=== PATIENT | female | born 1945 | race Caucasian/White ===

== ENCOUNTER 2017-04-27 16:29 | Emergency (ER) | payer MEDICARE, MEDICAID ==
[2017-04-27] MEDS ORDERED: Ketorolac Tromethamine 30 MG/ML VIAL ONE (17:44)
== END 2017-04-27 17:51 | disposition home or self-care (01) ==
LOC: ERS 16:29
DX: M54.5 Low back pain (principal); G89.29 Other chronic pain; I10 Essential (primary) hypertension; F32.9 Major depressive disorder, single episode, unspecified; F41.9 Anxiety disorder, unspecified; Z87.891 Personal history of nicotine dependence
CPT/HCPCS: 96372; J1885

== ENCOUNTER 2017-05-13 15:23 | Observation (INO) | payer MEDICARE, MEDICAID ==
[2017-05-13 15:42] LABS: #Eosinphils 0.2 thou/uL (0.0-0.7); #Lymphocytes 1.8 thou/uL (1.20-3.40); #Monocytes 0.6 thou/uL (0.11-0.59); #Neutrophils 5.2 thou/uL (1.40-6.50); %Basophils 0.3 % (0.0-1.0); %Eosinophils 2.2 % (0.0-10.0); %Lymphocytes 23.3 % (21.0-51.0); %Monocytes 8.1 % (0.0-10.0); Hematocrit 36.1 % (36.0-47.0); Mean Platelet Volume 7.9 fL (7.4-10.4); Red Blood Cell (RBC) Count 3.76 mill/uL (4.20-5.40); White Blood Cell (WBC) Count 7.9 thou/uL (4.8-10.8)
--- NOTE | 2017-05-13 15:57 | RAD ---
FRONTAL VIEW CHEST: Comparison: 03-14-16 Clinical history: Chest pain. FINDINGS: Lungs are clear. No effusion or pneumothorax. No free air beneath the hemidiaphragms. Cardiac silhou ette is within normal size for portable technique. IMPRESSION: No focal consolidation. POS: [facility]
[2017-05-13] MEDS ORDERED: ISOVUE-370 76%-LOCM 1 ML ONE (16:02)
[2017-05-13 16:05] LABS: ALT (SGPT) 11 U/L (8-55); AST (SGOT) 13 U/L (5-34); Alkaline Phosphatase 68 U/L (40-150); Anion Gap 17 mmol/L (10-20); BUN (Urea Nitrogen) 25 mg/dL (9.8-20.1); Bilirubin, Total 0.3 mg/dL (0.2-1.2); Calc. Creatinine Clearance 0 mL/min (70-130); Calcium 8.7 mg/dL (7.8-10.44); Carbon Dioxide 24 mmol/L (23-31); Chloride 103 mmol/L (98-107); Estimated GFR-MDRD 67; Globulin 2.9 g/dL (2.4-3.5); Protein, Total 6.7 g/dL (6.0-8.3)
[2017-05-13] MEDS ORDERED: Nitroglycerin 2% Ointment 1 INCH/1 GM Packet ONE (16:10)
[2017-05-13 16:14] LABS: Troponin I 0.013 ng/mL (< 0.028)
--- NOTE | 2017-05-13 16:45 | CT ---
CTA CHEST WITH 3D VOLUME RENDERING 05/13/17 CLINICAL HISTORY: Chest pain. Elevated D-dimer. No prior imaging comparison. FINDINGS: There is a mild generalized heterogeneity of the contrast bolus occupying the pulmonary arterial sys tem without definitive evidence for a large, central filling defect. Subtle linear areas of low atte nuation are favored to reflect flow related artifact. Portions of the segmental branches of each pul monary arterial system opacify with contrast without evidence of notable filling defect. Peripheral to the segmental distribution, there is incomplete assessment due to heterogeneity of contrast at th e distal small branches. No lobar consolidation. There is a generalized mosaic attenuation of the pulmonary parenchyma which is nonspecific. Ground glass focal opacity of the anterior right upper lobe may represent an area of focal volume loss or scar. There is patchy subpleural opacification at the posterior left lung base favoring atelectasis. Otherwise, no consolidation, effusion or pneumothorax evident. There is left apical pleural thickening/irregularity. Scattered atherosclerotic vascular disease of the thoracic a wayne is nonaneurysmal. There is heterogeneity of the partially imaged thyroid gland, incompletely as sessed. IMPRESSION: 1. No large, central pulmonary embolus identified. 2. Heterogeneity of the imaged thyroid gland, incompletely visualized on the basis of this exam . Consider followup, nonemergent thyroid ultrasound to further characterize. 3. Additional details are described above. POS: [facility]
[2017-05-13 19:16] VITALS: BMI 26.7
[2017-05-13 19:38] LABS: Troponin I Less than 0.010 ng/mL (< 0.028)
[2017-05-13] MEDS ORDERED: cloNIDine 0.1 MG TAB PO PRN (20:02)
[2017-05-13] MEDS ORDERED: HumaLOG 300 UNITS/3 ML VIAL SC PRN ×2 (20:02)
[2017-05-13] MEDS ORDERED: Ondansetron ODT 4 MG TAB PO PRN (20:02)
[2017-05-13] MEDS ORDERED: Senokot 8.6 MG TAB PO PRN (20:02)
[2017-05-13] MEDS ORDERED: Acetaminophen 500 MG TAB PO PRN (20:02)
[2017-05-13] MEDS ORDERED: hydrALAZINE 20 MG/ML VIAL SLOW IVP PRN (20:02)
[2017-05-13] MEDS ORDERED: Dextrose 50% Abboject 50 ML SYRINGE SLOW IVP PRN (20:02)
[2017-05-13] MEDS ORDERED: Dextrose 5% in Water 1,000 ML IV PRN (20:02)
[2017-05-13] MEDS ORDERED: Ondansetron HCl/PF 4 MG/2 ML Vial IVP PRN (20:02)
[2017-05-13] MEDS ORDERED: Nitroglycerin 0.4 MG TAB (25 Tab Bottle) PO PRN (20:02)
[2017-05-13] MEDS ORDERED: Insulin Detemir 100 UNITS/ML 30 UNITS in Pre-Filled Syringe 1 EACH SC SCH (21:00)
[2017-05-13] MEDS ORDERED: Atorvastatin Calcium 20 MG TAB PO SCH (21:00)
[2017-05-13] MEDS ORDERED: Non-Formulary Item 1 EACH (Levemir Flexpen [Levemir Flexpen] 30 UNITS) SQ SCH (21:00)
[2017-05-13] MEDS: Gabapentin 300 MG CAP PO SCH (21:23)
[2017-05-13] MEDS: Docusate 100 MG CAP PO SCH (21:23)
[2017-05-13] MEDS: Famotidine 20 MG TAB PO SCH (21:23)
[2017-05-13 21:45] LABS: Troponin I Less than 0.010 ng/mL (< 0.028)
--- NOTE | 2017-05-14 01:45 | HP ---
DATE OF ADMISSION: 05/13/2017 PRIMARY CARE PROVIDER: Dr. Tarah Beckwith. CHIEF COMPLAINT: Chest pain. HISTORY OF PRESENT ILLNESS: This is a 71-year-old female who presents to [facility] from [place], complaining of central chest pressure and pain. The patient state s she was sitting on her porch on a chair when she noticed the pain in the central portion of her ch est. The patient presented to the emergency room approximately 2 hours after onset of symptoms. Th e patient reported that her symptoms were constant, sharp, without associated nausea or vomiting. T he patient did state she had some shortness of breath with no diaphoresis, left arm or jaw discomfor t. The patient states she has a history of coronary artery disease status post cardiac stent placem ent x4. The patient states she has been compliant with her chronic medication regimens, but does no te that she has some mild cold symptoms with increased cough and congestion. The patient denied any specific fever, travel history, lower extremity swelling or unilateral weakness. In the emergency room, the patient underwent general evaluation and treated with topical nitroglycerin and aspirin 32 5 mg. The patient was referred to the observation unit for evaluation. PAST MEDICAL HISTORY: 1. Coronary artery disease status post cardiac stent placement x4. 2. Hypertension. 3. Diabetes mellitus, type 2, insulin requiring. 4. Peripheral neuropathy. 5. Mild dementia. PAST SURGICAL HISTORY: 1. Status post appendectomy. 2. Status post cardiac stent placement x4. 3. Status post hysterectomy. CURRENT MEDICATIONS: 1. Invokana 100 mg 1 tab p.o. daily. 2. Citalopram 20 mg 1 tab p.o. daily. 3. Plavix 75 mg 1 tab p.o. daily. 4. Gabapentin 300 mg p.o. t.i.d. 5. Levemir 25 units subcutaneously q.a.m. and 30 units subcutaneously at bedtime. 6. Lisinopril 20 mg 1 tab p.o. daily. 7. Memantine 5 mg p.o. b.i.d. 8. Simvastatin 40 mg p.o. at bedtime. 9. Glipizide 10 mg p.o. daily. 10. Metformin ER 1000 mg p.o. q.a.m. ALLERGIES: No known drug allergies. FAMILY HISTORY: Positive for diabetes mellitus. SOCIAL HISTORY: The patient resides at [facility]. No current alcohol, tobacco or i llicit drug use. Ambulates with the use of a rolling walker. Quit tobacco use in 2010. REVIEW OF SYSTEMS: The following complete review of systems was negative, unless otherwise mentione d in the HPI or below: Constitutional: Weight loss or gain, ability to conduct usual activities. Skin: Rash, itching. Eyes: Double vision, pain. ENT/Mouth: Nose bleeding, neck stiffness, pain, tenderness. Cardiovascular: Palpitations, dyspnea on exertion, orthopnea. Respiratory: Shortness of breath, wheezing, cough, hemoptysis, fever or night sweats. Gastrointestinal: Poor appetite, abdominal pain, heartburn, nausea, vomiting, constipation, or diar cristine. Genitourinary: Urgency, frequency, dysuria, nocturia. Musculoskeletal: Pain, swelling. Neurologic/Psychiatric: Anxiety, depression. ALLERGY/Immunologic: Skin rash, bleeding tendency. PHYSICAL EXAMINATION: VITAL SIGNS: On admission, blood pressure 169/86, pulse 73, respiratory rate 20, temperature 98.8 d egrees Fahrenheit, O2 saturation 96% on room air. GENERAL APPEARANCE: This is a 71-year-old female, alert and oriented x2, pleasant, conver lamberto, in no acute distress. HEENT: Pupils are equal, round, and reactive to light and accommodation. Extraocular muscles are i ntact. No scleral icterus, no conjunctival injection. Nares patent. OP is clear. Teeth in fair r epair. NECK: Supple, no cervical adenopathy, no thyromegaly, no carotid bruits, no JVD appreciated. Cervi jerman spine with full active and passive range of motion. No meningeal signs appreciated. CHEST: Lungs are clear to auscultation bilaterally. CARDIOVASCULAR: S1, S2, without noted murmur. ABDOMEN: Rounded, soft, nontender, nondistended. Bowel sounds are positive in all four quadrants. There is no hepatosplenomegaly, no abdominal bruits, no rebound or guarding appreciated. EXTREMITIES: Warm and dry with fair turgor. No clubbing, cyanosis or asymmetric edema appreciated. Pulses palpable distally at the dorsalis pedis, posterior tibial, and popliteal arteries bilateral ly. Capillary refill less than 2 seconds. NEUROLOGIC: Cranial nerves II-XII are grossly intact. No focal or lateralizing signs appreciated. PERTINENT LABORATORY AND X-RAY FINDINGS: Basic metabolic profile within normal limits. Glucose 212 , LFTs within normal limits. Troponin I negative x2. Albumin 3.8. CBC within normal limits. Port able chest x-ray dated 05/13/2017 showed no acute cardiopulmonary process. CT angiogram of the ches t dated on 05/13/2017 showed no evidence for pulmonary embolus. Heterogeneity of the thyroid gland. EKG dated on 05/13/2017 by my interpretation shows sinus mechanism with heart rates in the 70s. A ttenuated R waves noted in the precordial leads. Normal axis. Incomplete right bundle branch block pattern noted. No acute ST-T wave changes appreciated. ASSESSMENT AND PLAN: 1. Chest pain. The patient will be observed on the telemetry unit. We will proceed with Cardiolit e stress testing in the a.m. Continue aspirin 325 mg p.o. daily. Check fasting lipid profile in th e a.m. 2. Hypertension. Resume home antihypertensive regimen and monitor clinical response. 3. Diabetes mellitus, type 2, insulin requiring. Continue home insulin regimen when taking consist ent p.o. intake. ADA diet. Accu-Cheks a.c. and at bedtime. 4. Hyperlipidemia. Check fasting lipid profile in the a.m. Continue Simvastatin 40 mg p.o. at bed time. 5. Coronary artery disease. Chronic and stable. See #1 above. 6. Prophylaxis. Sequential compression devices while in bed. Pepcid 20 mg p.o. b.i.d. 7. Code status is FULL. Surrogate medical decision maker is the patient's daughter.
[2017-05-14 04:51] LABS: Anion Gap 9 mmol/L (10-20); BUN (Urea Nitrogen) 21 mg/dL (9.8-20.1); Calc. Creatinine Clearance 68 mL/min (70-130); Calcium 8.5 mg/dL (7.8-10.44); Carbon Dioxide 26 mmol/L (23-31); Chloride 107 mmol/L (98-107); Cholesterol 170 mg/dl (< 200 Desired); Estimated GFR-MDRD 66; LDL Cholesterol, Calculated 63 mg/dL
[2017-05-14 05:20] LABS: Band 2 % (5-11); Hematocrit 34.6 % (36.0-47.0); Mean Platelet Volume 8.1 fL (7.4-10.4); Neutrophil 48 % (42-75); Red Blood Cell (RBC) Count 3.58 mill/uL (4.20-5.40); White Blood Cell (WBC) Count 6.3 thou/uL (4.8-10.8)
[2017-05-14] MEDS ORDERED: FLU VACC TS2017-18 (>65YR) 0.5 ML SYRINGE IM ONE (09:00)
[2017-05-14] MEDS ORDERED: Clopidogrel Bisulfate 75 MG TAB PO SCH (09:00)
[2017-05-14] MEDS ORDERED: Aspirin 325 MG TAB PO SCH (09:00)
[2017-05-14] MEDS ORDERED: Citalopram 20 MG TAB PO SCH (09:00)
[2017-05-14] MEDS ORDERED: Lisinopril 20 MG TAB PO SCH (09:00)
[2017-05-14] MEDS ORDERED: Insulin Detemir 100 UNITS/ML 25 UNITS in Pre-Filled Syringe 1 EACH SC SCH (09:00)
[2017-05-14] MEDS ORDERED: Non-Formulary Item 1 EACH (Canagliflozin [Invokana] 100 MG) PO SCH (09:00)
[2017-05-14] MEDS ORDERED: ADENOSINE 60 MG/20 ML VIAL ONE (12:00)
[2017-05-14 12:51] VITALS: BP 158/71; TEMP 97.6
[2017-05-14] MEDS: Gabapentin 300 MG CAP PO SCH ×2 (13:23→13:25)
[2017-05-14] MEDS: Docusate 100 MG CAP PO SCH (13:24)
[2017-05-14] MEDS: Famotidine 20 MG TAB PO SCH (13:25)
--- NOTE | 2017-05-14 15:52 | DIS ---
PRIMARY CARE PHYSICIAN: Tarah Beckwith M.D. DATE OF ADMISSION: 05/13/2017 DATE OF DISCHARGE: 05/14/2017 DISCHARGE DIAGNOSES: 1. Noncardiac chest pain. 2. History of coronary artery disease without angina. 3. Diabetes mellitus type 2 without complications. 4. Hyperlipidemia. 5. Essential hypertension. 6. Mild dementia. 7. Peripheral neuropathy. CONSULTATIONS: None. PROCEDURES: Nuclear thallium stress test, which showed no areas of reversible ischemia. HISTORY AND PHYSICAL: Ms. Reynaga is a 71-year-old female who presented to the emergency [facility] t last night 05/13/2017, complaining of chest pressure. She is a resident of [place] and was havi ng central chest pressure occurred while she was sitting on her porch. She came to the emergency ro om for evaluation from apartment approximately 2 hours after symptoms started. She describes a cons tant, sharp pain, did not have any associated nausea or vomiting, but did have some shortness of luís ath without diaphoresis. No left arm or jaw discomfort. It was increased by deep breathing. This does not feel like her previous episode. She was given nitroglycerin and aspirin, and we were huang d for observation. HOSPITAL COURSE: The patient was seen and examined by Dr. Max and placed in observation with telem etry. Overnight, she remained pain free. She had serial cardiac biomarkers that were negative and this morning, underwent a nuclear thallium stress test, which was negative for inducible ischemia. Her symptoms resolved. Her vital signs were stable and she was discharged with outpatient followup. DISCHARGE PHYSICAL EXAMINATION: The patient was seen and examined on the day of discharge. Dischar ge plan and disposition were discussed with the patient face to face at the bedside. DISCHARGE MEDICATIONS: 1. Aspirin 81 mg daily, which is a new medication prescription sent. 2. Invokana 100 mg daily. 3. Celexa 20 mg daily. 4. Plavix 75 mg daily. 5. Gabapentin 300 mg p.o. t.i.d. 6. Levemir 25 units subQ q.a.m. and 30 units subQ q.p.m. 7. Lisinopril 20 mg daily. 8. Memantine 5 mg p.o. b.i.d. 9. Zocor 40 mg p.o. at bedtime. 10. Glipizide 10 mg daily. 11. Metformin 1000 mg p.o. q.a.m. FOLLOWUP APPOINTMENTS: Primary care physician within a week. DISCHARGE CONDITION: Stable. DISPOSITION: The patient will be discharged home via private vehicle. DISCHARGE DIET: Heart healthy, diabetic diet. DISCHARGE ACTIVITY: As tolerated. Instructions to return to the emergency department for worsening chest pain and to keep her follow u p with her primary care physician.
--- NOTE | 2017-05-14 15:52 | NM ---
NUCLEAR MEDICINE CARDIAC STRESS TEST WITH EJECTION FRACTION 05/14/17 HISTORY: Coronary artery disease, stents, cardiac cath, hypertension, diabetes, chest pain. COMPARISON: Nuclear medicine cardiac stress test 03/15/16. TECHNIQUE: The exam is performed using nuclear Adenosine stress. There is no abnormal EKG response with no abno rmal changes. Stress and rest was performed after the intravenous administration of 32 and 9 millicuries technetiu m 99m Sestamibi intravenously. FINDINGS: No areas of scar or ischemia. Normal wall motion. No area of dyskinesia. Ejection fraction is 68%. IMPRESSION: Normal cardiac stress test with ejection fraction. POS: [facility]
--- NOTE | 2017-05-23 12:54 | EKG ---
Test Reason : CP Blood Pressure : / mmHG Vent. Rate : 075 BPM Atrial Rate : 075 BPM P-R Int : 172 ms QRS Dur : 110 ms QT Int : 412 ms P-R-T Axes : 029 066 036 degrees QTc Int : 460 ms Normal sinus rhythm Incomplete right bundle branch block Borderline ECG Confirmed by WANDA ASUNDERS MD ([id number]), film editor supervisor DAVID MATHEWS ([id number]) on 05/23/2017 12:54:34 PM Referred By: Confirmed By:WANDA SAUNDERS MD
== END 2017-05-14 15:10 | disposition home or self-care (01) ==
LOC: ERS 15:23 → 2SW 17:00
PROVIDERS: ADMIT Family Medicine; ATTEND Family Medicine
DX: R07.89 Other chest pain (principal); I25.10 Atherosclerotic heart disease of native coronary artery without angina pectoris; E78.5 Hyperlipidemia, unspecified; I10 Essential (primary) hypertension; F03.90 Unspecified dementia, unspecified severity, without behavioral disturbance, psychotic disturbance, mood disturbance, and anxiety; E11.42 Type 2 diabetes mellitus with diabetic polyneuropathy; Z79.2 Long term (current) use of antibiotics; Z79.02 Long term (current) use of antithrombotics/antiplatelets; Z79.4 Long term (current) use of insulin; Z79.899 Other long term (current) drug therapy; Z95.818 Presence of other cardiac implants and grafts; Z90.49 Acquired absence of other specified parts of digestive tract; Z90.710 Acquired absence of both cervix and uterus; Z87.891 Personal history of nicotine dependence
CPT/HCPCS: 71010; 71275; 78452; 80048; 80053; 80061; 82553; 82962 ×2; 84484 ×2; 85007; 85025; 85027; 85379; 90732; 93005; 93017; 94760 ×2; 99285; A9500; G0008; G0009; G0378; Q2036; 36415; 36416; 90471; 90682; A4216; J0153; J1815

== ENCOUNTER 2017-05-21 18:28 | Emergency (ER) | payer MEDICARE, MEDICAID ==
[2017-05-21 21:18] LABS: Bilirubin Negative (Negative); Blood, Urine Negative (Negative); Glucose, Urine (Dipstick) >=1000 mg/dL (Negative); Ketone, Urine Negative (Negative); Nitrite Negative (Negative); Protein, Urine (Dipstick) Negative (Neg-Trace); Urobilinogen 0.2 mg/dL (0.2-1.0)
[2017-05-21 21:21] LABS: Bacteria/HPF Rare-Few HPF (None Seen); Hyaline Casts/LPF 0-3 HYALINE CAST LPF (0-3 Hyaline); RBC/HPF 0-3 HPF (0-3); Squamous Epithelial 0-3 HPF (0-3)
[2017-05-21] MEDS ORDERED: Acetaminophen 500 MG TAB ONE (22:18)
== END 2017-05-21 22:29 | disposition home or self-care (01) ==
LOC: ERS 18:28
DX: N39.0 Urinary tract infection, site not specified (principal); E11.9 Type 2 diabetes mellitus without complications; F41.9 Anxiety disorder, unspecified; F32.9 Major depressive disorder, single episode, unspecified; Z79.4 Long term (current) use of insulin
CPT/HCPCS: 81003; 81015; 87086; 99283

== ENCOUNTER 2017-05-31 15:40 | Emergency (ER) | payer MEDICARE, MEDICAID ==
[2017-05-31 16:45] LABS: Bilirubin Negative (Negative); Blood, Urine Negative (Negative); Glucose, Urine (Dipstick) >=1000 mg/dL (Negative); Ketone, Urine Negative (Negative); Nitrite Negative (Negative); Protein, Urine (Dipstick) Negative (Neg-Trace); Urobilinogen 0.2 mg/dL (0.2-1.0)
== END 2017-05-31 18:58 | disposition home or self-care (01) ==
LOC: ERS 15:40
DX: M54.5 Low back pain (principal); E11.40 Type 2 diabetes mellitus with diabetic neuropathy, unspecified; F41.9 Anxiety disorder, unspecified; F32.9 Major depressive disorder, single episode, unspecified; Z87.891 Personal history of nicotine dependence; Z79.899 Other long term (current) drug therapy; Z79.4 Long term (current) use of insulin
CPT/HCPCS: 36416; 81003; 87086; 99283

== ENCOUNTER 2017-08-11 12:31 | Emergency (ER) | payer MEDICARE, OTHER ==
[2017-08-11] MEDS ORDERED: Insulin Regular 300 UNITS/3 ML VIAL ONE (13:01)
[2017-08-11 13:30] LABS: #Eosinphils 0.1 thou/uL (0.0-0.7); #Lymphocytes 1.4 thou/uL (1.20-3.40); #Monocytes 0.2 thou/uL (0.11-0.59); #Neutrophils 4.9 thou/uL (1.40-6.50); %Basophils 0.2 % (0.0-1.0); %Eosinophils 1.7 % (0.0-10.0); %Lymphocytes 20.9 % (21.0-51.0); %Monocytes 2.7 % (0.0-10.0); %Neutrophils 74.5 % (42.0-75.0); Hemoglobin 11.9 g/dL (12.0-16.0); Mean Corpuscular HGB CONC 33.6 g/dL (32.0-36.0); Mean Corpuscular Hemoglobin 32.2 pg (27.0-31.0); Mean Corpuscular Volume 95.9 fl (81.0-99.0); Mean Platelet Volume 8.1 fL (7.4-10.4); Platelet Count 204 thou/uL (130-400); RBC Distribution Width 12.6 % (11.5-14.5); Red Blood Cell (RBC) Count 3.69 mill/uL (4.20-5.40); White Blood Cell (WBC) Count 6.6 thou/uL (4.8-10.8)
--- NOTE | 2017-08-11 13:36 | RAD ---
PORTABLE CHEST 1 VIEW: DATE: 08/11/17. TIME: 1:06 a.m. HISTORY: Hyperglycemia, bilateral leg pain. FINDINGS: Comparison is mad with the exam of 05/19/17. The heart size is normal. The lungs were expanded without confluent areas of consolidation, pneumoth oraces, or pleural effusions. IMPRESSION: No radiographic evidence of acute cardiopulmonary process. POS: [facility]
[2017-08-11 13:44] LABS: Bilirubin Negative (Negative); Blood, Urine Negative (Negative); Clarity CLEAR (Clear); Glucose, Urine (Dipstick) >=1000 mg/dL (Negative); Leukocyte Negative (Negative); Nitrite Negative (Negative); Protein, Urine (Dipstick) Negative (Neg-Trace); Specific Gravity, Urine 1.025 (1.002-1.036); Urobilinogen 0.2 mg/dL (0.2-1.0); pH, Urine 6.5 (5.0-9.0)
[2017-08-11 13:58] LABS: ALT (SGPT) 8 U/L (8-55); AST (SGOT) 13 U/L (5-34); Albumin 3.7 g/dL (3.4-4.8); Alkaline Phosphatase 66 U/L (40-150); Anion Gap 14 mmol/L (10-20); BUN (Urea Nitrogen) 17 mg/dL (9.8-20.1); Bilirubin, Total 0.3 mg/dL (0.2-1.2); Calc. Creatinine Clearance 0 mL/min (70-130); Calcium 8.3 mg/dL (7.8-10.44); Carbon Dioxide 22 mmol/L (23-31); Chloride 105 mmol/L (98-107); Estimated GFR-MDRD 50; Globulin 2.6 g/dL (2.4-3.5); Glucose 413 mg/dL (83-110); Lipase 78 U/L (8-78); Potassium 4.6 mmol/L (3.5-5.1); Protein, Total 6.3 g/dL (6.0-8.3); Sodium 136 mmol/L (136-145)
[2017-08-11] MEDS ORDERED: Ketorolac Tromethamine 30 MG/ML VIAL ONE (14:10)
[2017-08-11 14:22] LABS: CKMB 2.4 ng/mL (0-6.6); Troponin I Less than 0.010 ng/mL (< 0.028)
== END 2017-08-11 16:30 | disposition home or self-care (01) ==
LOC: ERS 12:31
DX: E11.40 Type 2 diabetes mellitus with diabetic neuropathy, unspecified (principal); E11.65 Type 2 diabetes mellitus with hyperglycemia; G89.29 Other chronic pain; M54.9 Dorsalgia, unspecified; F32.9 Major depressive disorder, single episode, unspecified; F41.9 Anxiety disorder, unspecified; I10 Essential (primary) hypertension; I25.2 Old myocardial infarction; Z79.4 Long term (current) use of insulin
CPT/HCPCS: 36415; 36416; 71045; 80053; 81003; 82010; 82553; 83690; 84484; 85025; 87086; 96361; 96374; 96375; J1815; J1885

== ENCOUNTER 2017-09-05 15:00 | Emergency (ER) | payer MEDICARE, MEDICAID ==
[~2017-09-05 15:00] MED LIST: ISOVUE-370 76%-LOCM 1 ML ONE
[2017-09-05 16:01] LABS: Bilirubin Negative (Negative); Blood, Urine Negative (Negative); Clarity CLEAR (Clear); Glucose, Urine (Dipstick) >=1000 mg/dL (Negative); Leukocyte Trace (Negative); Nitrite Negative (Negative); Protein, Urine (Dipstick) Negative (Neg-Trace); Specific Gravity, Urine 1.029 (1.002-1.036); Urobilinogen 0.2 mg/dL (0.2-1.0); pH, Urine 6.5 (5.0-9.0)
[2017-09-05 16:04] LABS: Bacteria/HPF None Seen HPF (None Seen); Hyaline Casts/LPF 0-3 HYALINE CAST LPF (0-3 Hyaline); RBC/HPF 0-3 HPF (0-3); Squamous Epithelial None Seen HPF (0-3); Yeast-AUWi Flag 18.1 (0-25.0)
[2017-09-05 16:05] LABS: #Eosinphils 0.2 thou/uL (0.0-0.7); #Lymphocytes 1.9 thou/uL (1.20-3.40); #Monocytes 0.6 thou/uL (0.11-0.59); #Neutrophils 5.1 thou/uL (1.40-6.50); %Basophils 0.3 % (0.0-1.0); %Eosinophils 2.3 % (0.0-10.0); %Lymphocytes 24.2 % (21.0-51.0); %Monocytes 8.2 % (0.0-10.0); %Neutrophils 65.1 % (42.0-75.0); Hemoglobin 11.7 g/dL (12.0-16.0); Mean Corpuscular HGB CONC 33.4 g/dL (32.0-36.0); Mean Corpuscular Hemoglobin 31.5 pg (27.0-31.0); Mean Corpuscular Volume 94.4 fl (81.0-99.0); Mean Platelet Volume 7.6 fL (7.4-10.4); Platelet Count 239 thou/uL (130-400); RBC Distribution Width 12.6 % (11.5-14.5); Red Blood Cell (RBC) Count 3.73 mill/uL (4.20-5.40); White Blood Cell (WBC) Count 7.8 thou/uL (4.8-10.8)
--- NOTE | 2017-09-05 16:10 | RAD ---
PORTABLE CHEST 09/05/17 HISTORY: Dizziness. The lungs are clear. Heart and mediastinum are unremarkable. IMPRESSION: No acute abnormality. POS: [facility]
[2017-09-05 16:28] LABS: ALT (SGPT) 11 U/L (8-55); AST (SGOT) 15 U/L (5-34); Albumin 3.9 g/dL (3.4-4.8); Alkaline Phosphatase 84 U/L (40-150); Anion Gap 14 mmol/L (10-20); BUN (Urea Nitrogen) 24 mg/dL (9.8-20.1); Bilirubin, Total 0.3 mg/dL (0.2-1.2); CK (CPK) 90 U/L (29-168); Calc. Creatinine Clearance 0 mL/min (70-130); Calcium 8.8 mg/dL (7.8-10.44); Carbon Dioxide 21 mmol/L (23-31); Chloride 104 mmol/L (98-107); Estimated GFR-MDRD 54; Globulin 3.3 g/dL (2.4-3.5); Glucose 399 mg/dL (83-110); Lipase 149 U/L (8-78); Potassium 4.4 mmol/L (3.5-5.1); Protein, Total 7.2 g/dL (6.0-8.3); Sodium 135 mmol/L (136-145)
[2017-09-05 16:39] LABS: CKMB 3.1 ng/mL (0-6.6); Troponin I Less than 0.010 ng/mL (< 0.028)
[2017-09-05] MEDS ORDERED: Methocarbamol 500 MG TAB PO SCH (17:00)
[2017-09-05] MEDS ORDERED: Insulin Regular 300 UNITS/3 ML VIAL ONE (17:31)
--- NOTE | 2017-09-05 17:40 | CT ---
CT HEAD WITHOUT CONTRAST 09/05/17 Multiple axial tomograms obtained through the head without IV enhancement. HISTORY: Lightheadedness. Dizziness. Mild cortical volume loss. No evidence of mass, hemorrhage, or infarct. There are mild chronic ischem ic white matter changes and there is evidence of old lacunar infarct in the left periventricular whit e matter. IMPRESSION: No acute process. POS: [facility]
[2017-09-05] MEDS ORDERED: Nitrofurantoin Macrocrystal 50 MG CAP PO SCH (17:45)
--- NOTE | 2017-09-05 17:55 | CT ---
CT ABDOMEN AND PELVIS WITH CONTRAST: 09/05/17 Multiple axial tomograms obtained through the abdomen and pelvis with IV enhancement. HISTORY: Right lower quadrant pain. FINDINGS: Lung bases clear. Liver, spleen, pancreas unremarkable. Adrenal glands and kidneys unremarkable. No hydronephrosis. Urinary bladder mildly distended and unre markable in appearance. Small bowel loops appear normal. There is stool throughout the colon. The appendix is not identified. No evidence of appendicitis. Sca ttered small diverticula in the left colon. No CT evidence of diverticulitis. Aorta normal caliber. N o adenopathy. IMPRESSION: No acute process identified. POS: [facility]
--- NOTE | 2017-09-12 13:21 | EKG ---
Test Reason : Blood Pressure : / mmHG Vent. Rate : 074 BPM Atrial Rate : 074 BPM P-R Int : 158 ms QRS Dur : 130 ms QT Int : 418 ms P-R-T Axes : 057 066 024 degrees QTc Int : 463 ms Normal sinus rhythm Possible Left atrial enlargement Right bundle branch block Septal infarct , age undetermined Abnormal ECG No acute change from baseline EKG of 05/19/2017 Confirmed by BOB PEREZ ([id number]), avid editor ALLA MA ([id number]) on 09/12/2017 1:21:04 PM Referred By: Confirmed By:BOB PEREZ
== END 2017-09-05 18:20 | disposition home or self-care (01) ==
LOC: ERS 15:00
DX: N39.0 Urinary tract infection, site not specified (principal); R42 Dizziness and giddiness; E11.9 Type 2 diabetes mellitus without complications; I10 Essential (primary) hypertension; I25.2 Old myocardial infarction; F41.9 Anxiety disorder, unspecified; F32.9 Major depressive disorder, single episode, unspecified; Z79.4 Long term (current) use of insulin
CPT/HCPCS: 36415; 36416; 70450; 71045; 74177; 80053; 81003; 81015; 82553; 83605; 83690; 84484; 85025; 87086; 93005; 96372; J1815

== ENCOUNTER 2017-09-26 13:05 | Emergency (ER) | payer MEDICARE, MEDICAID ==
[2017-09-26 13:32] LABS: #Eosinphils 0.2 thou/uL (0.0-0.7); #Lymphocytes 1.7 thou/uL (1.20-3.40); #Monocytes 0.6 thou/uL (0.11-0.59); #Neutrophils 5.6 thou/uL (1.40-6.50); %Basophils 0.5 % (0.0-1.0); %Eosinophils 1.9 % (0.0-10.0); %Monocytes 7.8 % (0.0-10.0); %Neutrophils 68.8 % (42.0-75.0); Mean Corpuscular HGB CONC 32.6 g/dL (32.0-36.0); Mean Corpuscular Hemoglobin 30.3 pg (27.0-31.0); Mean Corpuscular Volume 92.9 fl (81.0-99.0); Mean Platelet Volume 7.6 fL (7.4-10.4); Platelet Count 261 thou/uL (130-400); White Blood Cell (WBC) Count 8.2 thou/uL (4.8-10.8)
[2017-09-26 13:47] LABS: ALT (SGPT) 14 U/L (8-55); AST (SGOT) 19 U/L (5-34); Albumin 4.2 g/dL (3.4-4.8); Alkaline Phosphatase 81 U/L (40-150); Anion Gap 16 mmol/L (10-20); BUN (Urea Nitrogen) 19 mg/dL (9.8-20.1); Bilirubin, Total 0.3 mg/dL (0.2-1.2); Calc. Creatinine Clearance 0 mL/min (70-130); Calcium 8.9 mg/dL (7.8-10.44); Carbon Dioxide 22 mmol/L (23-31); Chloride 103 mmol/L (98-107); Estimated GFR-MDRD 46; Globulin 3.4 g/dL (2.4-3.5); Glucose 291 mg/dL (83-110); Lipase 239 U/L (8-78); Potassium 5.4 mmol/L (3.5-5.1); Protein, Total 7.6 g/dL (6.0-8.3); Sodium 136 mmol/L (136-145)
[2017-09-26 14:12] LABS: Bilirubin Negative (Negative); Blood, Urine Negative (Negative); Clarity CLEAR (Clear); Glucose, Urine (Dipstick) 500 mg/dL (Negative); Leukocyte Negative (Negative); Nitrite Negative (Negative); Protein, Urine (Dipstick) Negative (Neg-Trace); Specific Gravity, Urine 1.026 (1.002-1.036); pH, Urine 7.5 (5.0-9.0)
[2017-09-26] MEDS ORDERED: Acetaminophen 500 MG TAB ONE (14:20)
--- NOTE | 2017-09-26 16:39 | CT ---
ABDOMEN AND PELVIC CT SCAN WITHOUT IV CONTRAST: 09/26/17 HISTORY: 72-year-old female with history of right lower quadrant abdominal pain. History of prior appendectomy . COMPARISON: 09/05/17. Noncontrast abdomen and pelvic CT scan demonstrates no significant acute process in the lower lung zo yahaira. There is a somewhat small contracted gallbladder which appears to have a very small gallstone. T he liver, pancreas, spleen, and adrenal glands are unremarkable. No evidence for renal calculi or acu te obstruction. There is some superficial subcutaneous fat stranding noted bilaterally in the righ t and left lower anterior abdominal fat but this is stable when compared to the 09/05/17 study. No abs cess, adenopathy, or abnormal fluid collection within the abdomen or pelvis. IMPRESSION: Small contracted gallbladder with small gallstone. No evidence for other significant acute process in the abdomen or pelvis. POS: [facility]
== END 2017-09-26 15:21 | disposition home or self-care (01) ==
LOC: ERS 13:05
DX: K43.9 Ventral hernia without obstruction or gangrene (principal); I10 Essential (primary) hypertension; E11.40 Type 2 diabetes mellitus with diabetic neuropathy, unspecified; I25.2 Old myocardial infarction; F41.9 Anxiety disorder, unspecified; F32.9 Major depressive disorder, single episode, unspecified; Z79.4 Long term (current) use of insulin
CPT/HCPCS: 74176; 80053; 81003; 83690; 85025; 96360

== ENCOUNTER 2017-09-27 12:20 | Emergency (ER) | payer MEDICARE, MEDICAID ==
[2017-09-27 13:21] LABS: Bilirubin Negative (Negative); Blood, Urine Negative (Negative); Clarity CLEAR (Clear); Glucose, Urine (Dipstick) >=1000 mg/dL (Negative); Leukocyte Negative (Negative); Nitrite Negative (Negative); Protein, Urine (Dipstick) Negative (Neg-Trace); Specific Gravity, Urine 1.027 (1.002-1.036); Urobilinogen 0.2 mg/dL (0.2-1.0); pH, Urine 6.5 (5.0-9.0)
[2017-09-27 13:28] LABS: #Eosinphils 0.2 thou/uL (0.0-0.7); #Lymphocytes 1.5 thou/uL (1.20-3.40); #Monocytes 0.5 thou/uL (0.11-0.59); #Neutrophils 4.6 thou/uL (1.40-6.50); %Basophils 0.6 % (0.0-1.0); %Eosinophils 2.5 % (0.0-10.0); %Lymphocytes 22.3 % (21.0-51.0); %Monocytes 7.2 % (0.0-10.0); %Neutrophils 67.3 % (42.0-75.0); Hemoglobin 12.2 g/dL (12.0-16.0); Mean Corpuscular HGB CONC 31.9 g/dL (32.0-36.0); Mean Corpuscular Hemoglobin 30.7 pg (27.0-31.0); Mean Corpuscular Volume 96.3 fl (81.0-99.0); Mean Platelet Volume 7.5 fL (7.4-10.4); Platelet Count 236 thou/uL (130-400); Red Blood Cell (RBC) Count 3.96 mill/uL (4.20-5.40); White Blood Cell (WBC) Count 6.8 thou/uL (4.8-10.8)
[2017-09-27 13:52] LABS: ALT (SGPT) 12 U/L (8-55); AST (SGOT) 16 U/L (5-34); Albumin 4.1 g/dL (3.4-4.8); Alkaline Phosphatase 73 U/L (40-150); Anion Gap 12 mmol/L (10-20); BUN (Urea Nitrogen) 18 mg/dL (9.8-20.1); Bilirubin, Total 0.3 mg/dL (0.2-1.2); Calc. Creatinine Clearance 0 mL/min (70-130); Calcium 8.8 mg/dL (7.8-10.44); Carbon Dioxide 26 mmol/L (23-31); Chloride 106 mmol/L (98-107); Estimated GFR-MDRD 50; Globulin 2.8 g/dL (2.4-3.5); Glucose 207 mg/dL (83-110); Lipase 117 U/L (8-78); Potassium 4.6 mmol/L (3.5-5.1); Protein, Total 6.9 g/dL (6.0-8.3); Sodium 139 mmol/L (136-145)
== END 2017-09-27 13:35 | disposition left against medical advice (07) ==
LOC: ERS 12:20
DX: Z53.21 Procedure and treatment not carried out due to patient leaving prior to being seen by health care provider (principal)
CPT/HCPCS: 36415; 80053; 81003; 83690; 85025

== ENCOUNTER 2017-09-28 11:53 | Emergency (ER) | payer MEDICARE, MEDICAID | END 2017-09-28 14:16 | disposition home or self-care (01) | LOC: ERS 11:53 | DX: L90.5 Scar conditions and fibrosis of skin (principal); R10.31 Right lower quadrant pain; F03.90 Unspecified dementia, unspecified severity, without behavioral disturbance, psychotic disturbance, mood disturbance, and anxiety; I10 Essential (primary) hypertension; E11.41 Type 2 diabetes mellitus with diabetic mononeuropathy; I25.2 Old myocardial infarction; F41.9 Anxiety disorder, unspecified; F32.9 Major depressive disorder, single episode, unspecified; Z79.4 Long term (current) use of insulin; Z79.02 Long term (current) use of antithrombotics/antiplatelets; Z79.899 Other long term (current) drug therapy | CPT/HCPCS: 99283 ==

== ENCOUNTER 2017-11-03 16:08 | Emergency (ER) | payer MEDICARE, OTHER ==
[2017-11-03 16:39] LABS: #Basophils 0.1 thou/uL (0.0-0.2); #Eosinphils 0.2 thou/uL (0.0-0.7); #Lymphocytes 2.8 thou/uL (1.20-3.40); #Monocytes 0.8 thou/uL (0.11-0.59); #Neutrophils 5.8 thou/uL (1.40-6.50); %Basophils 0.7 % (0.0-1.0); %Eosinophils 2.3 % (0.0-10.0); %Lymphocytes 28.6 % (21.0-51.0); %Neutrophils 60.5 % (42.0-75.0); Mean Corpuscular HGB CONC 33.1 g/dL (32.0-36.0); Mean Corpuscular Hemoglobin 30.4 pg (27.0-31.0); Mean Corpuscular Volume 91.9 fl (81.0-99.0); Mean Platelet Volume 7.1 fL (7.4-10.4); Platelet Count 233 thou/uL (130-400); RBC Distribution Width 13.2 % (11.5-14.5); Red Blood Cell (RBC) Count 3.95 mill/uL (4.20-5.40); White Blood Cell (WBC) Count 9.6 thou/uL (4.8-10.8)
--- NOTE | 2017-11-03 16:42 | RAD ---
PORTABLE CHEST ONE VIEW 11/03/17 at 4:26 p.m. HISTORY: Dizziness. FINDINGS: Comparison is made with exam of 09/05/17. The heart size is normal. The aorta is tortuous. The lungs are expanded without focal areas of consol idation, pneumothorax or pleural effusions. IMPRESSION: No radiographic evidence of acute cardiopulmonary process. POS: [facility]
[2017-11-03 16:59] LABS: ALT (SGPT) 11 U/L (8-55); AST (SGOT) 18 U/L (5-34); Albumin 4.2 g/dL (3.4-4.8); Alkaline Phosphatase 64 U/L (40-150); Anion Gap 13 mmol/L (10-20); BUN (Urea Nitrogen) 22 mg/dL (9.8-20.1); Bilirubin, Total 0.3 mg/dL (0.2-1.2); Calc. Creatinine Clearance 0 mL/min (70-130); Carbon Dioxide 24 mmol/L (23-31); Chloride 104 mmol/L (98-107); Estimated GFR-MDRD 54; Glucose 118 mg/dL (83-110); Potassium 4.1 mmol/L (3.5-5.1); Protein, Total 7.2 g/dL (6.0-8.3); Sodium 137 mmol/L (136-145)
[2017-11-03 17:03] LABS: CKMB 2.7 ng/mL (0-6.6); Troponin I Less than 0.010 ng/mL (< 0.028)
[2017-11-03 17:05] LABS: Bilirubin Negative (Negative); Blood, Urine Negative (Negative); Clarity CLEAR (Clear); Glucose, Urine (Dipstick) 500 mg/dL (Negative); Leukocyte Negative (Negative); Nitrite Negative (Negative); Protein, Urine (Dipstick) Negative (Neg-Trace); Specific Gravity, Urine 1.009 (1.002-1.036)
--- NOTE | 2017-11-03 17:12 | CT ---
CT HEAD NONCONTRAST: 11/03/17 HISTORY: Lightheadedness. Altered mental status. COMPARISON: 09/05/17. FINDINGS: There is no evidence of acute intracranial hemorrhage or infarct. Diffuse cortical atrophy and chroni c ischemic small vessel disease are again demonstrated. Dystrophic calcification within the right bas al ganglia is stable. There is no mass effect or shift of midline structures. IMPRESSION: Chronic type findings are stable. No acute intracranial abnormalities are demonstrated on noncontrast CT head. POS: [facility]
== END 2017-11-03 18:15 | disposition home or self-care (01) ==
LOC: ERS 16:08
DX: E11.649 Type 2 diabetes mellitus with hypoglycemia without coma (principal); I25.10 Atherosclerotic heart disease of native coronary artery without angina pectoris; E11.40 Type 2 diabetes mellitus with diabetic neuropathy, unspecified; I25.2 Old myocardial infarction; I10 Essential (primary) hypertension; F41.9 Anxiety disorder, unspecified; F32.9 Major depressive disorder, single episode, unspecified
CPT/HCPCS: 36415; 36416; 70450; 71045; 80053; 81003; 82553; 84484; 85025; 93005

== ENCOUNTER 2017-11-07 09:11 | Emergency (ER) | payer MEDICARE, MEDICAID ==
[2017-11-07] MEDS ORDERED: Acetaminophen 500 MG TAB ONE (09:35)
[2017-11-07 09:44] LABS: #Eosinphils 0.2 thou/uL (0.0-0.7); #Lymphocytes 1.6 thou/uL (1.20-3.40); #Monocytes 0.5 thou/uL (0.11-0.59); #Neutrophils 3.1 thou/uL (1.40-6.50); %Basophils 0.5 % (0.0-1.0); %Eosinophils 3.5 % (0.0-10.0); %Lymphocytes 29.1 % (21.0-51.0); %Monocytes 8.8 % (0.0-10.0); %Neutrophils 58.1 % (42.0-75.0); Hemoglobin 12.2 g/dL (12.0-16.0); Mean Corpuscular HGB CONC 33.2 g/dL (32.0-36.0); Mean Corpuscular Hemoglobin 30.7 pg (27.0-31.0); Mean Corpuscular Volume 92.5 fl (81.0-99.0); Mean Platelet Volume 7.3 fL (7.4-10.4); Platelet Count 238 thou/uL (130-400); RBC Distribution Width 13.2 % (11.5-14.5); Red Blood Cell (RBC) Count 3.97 mill/uL (4.20-5.40); White Blood Cell (WBC) Count 5.3 thou/uL (4.8-10.8)
[2017-11-07 10:06] LABS: ALT (SGPT) 10 U/L (8-55); AST (SGOT) 13 U/L (5-34); Alkaline Phosphatase 61 U/L (40-150); Anion Gap 9 mmol/L (10-20); BUN (Urea Nitrogen) 22 mg/dL (9.8-20.1); Bilirubin, Total 0.5 mg/dL (0.2-1.2); Calc. Creatinine Clearance 0 mL/min (70-130); Calcium 9.1 mg/dL (7.8-10.44); Carbon Dioxide 27 mmol/L (23-31); Chloride 108 mmol/L (98-107); Estimated GFR-MDRD 60; Globulin 2.9 g/dL (2.4-3.5); Glucose 76 mg/dL (83-110); Potassium 4.5 mmol/L (3.5-5.1); Protein, Total 6.9 g/dL (6.0-8.3); Sodium 139 mmol/L (136-145)
--- NOTE | 2017-11-07 10:44 | CT ---
CT BRAIN: DATE: 11/07/17. PROVIDED CLINICAL HISTORY: Dizziness and headache. FINDINGS: Comparison 11/03/17. The ventricular system is stable in size and morphology. There is no evidence f or intracranial hemorrhage or mass effect. Chronic microvascular ischemic changes are seen. There i s no evidence for an acute abnormality involving the extracranial soft tissues or osseous structures. IMPRESSION: No evidence for intracranial hemorrhage or mass effect. POS: [facility]
[2017-11-07 11:47] LABS: Bilirubin Negative (Negative); Blood, Urine Negative (Negative); Clarity CLEAR (Clear); Glucose, Urine (Dipstick) >=1000 mg/dL (Negative); Leukocyte Negative (Negative); Nitrite Negative (Negative); Protein, Urine (Dipstick) Negative (Neg-Trace); Specific Gravity, Urine 1.029 (1.002-1.036); Urobilinogen 0.2 mg/dL (0.2-1.0); pH, Urine 5.5 (5.0-9.0)
[2017-11-07] MEDS ORDERED: diphenhydrAMINE 50 MG/ML VIAL ONE (12:20)
[2017-11-07] MEDS ORDERED: Promethazine HCl 25 MG/ML VIAL ONE (12:20)
== END 2017-11-07 17:05 | disposition home or self-care (01) ==
LOC: ERS 09:11
DX: R51 Headache (principal); I25.10 Atherosclerotic heart disease of native coronary artery without angina pectoris; I25.2 Old myocardial infarction; E11.9 Type 2 diabetes mellitus without complications; I10 Essential (primary) hypertension; F41.9 Anxiety disorder, unspecified; F32.9 Major depressive disorder, single episode, unspecified
CPT/HCPCS: 70450; 80053; 81003; 85025; 85652; 93005; 94760; 96374; 96375; J1200; J2550

== ENCOUNTER 2017-11-12 09:27 | Emergency (ER) | payer MEDICARE, MEDICAID ==
[2017-11-12 10:31] LABS: #Basophils 0.1 thou/uL (0.0-0.2); #Eosinphils 0.2 thou/uL (0.0-0.7); #Lymphocytes 1.4 thou/uL (1.20-3.40); #Monocytes 0.5 thou/uL (0.11-0.59); #Neutrophils 3.8 thou/uL (1.40-6.50); %Basophils 1.7 % (0.0-1.0); %Eosinophils 2.7 % (0.0-10.0); %Lymphocytes 24.3 % (21.0-51.0); %Monocytes 8.2 % (0.0-10.0); %Neutrophils 63.2 % (42.0-75.0); Hemoglobin 11.8 g/dL (12.0-16.0); Mean Corpuscular HGB CONC 32.5 g/dL (32.0-36.0); Mean Corpuscular Hemoglobin 30.3 pg (27.0-31.0); Mean Corpuscular Volume 93.2 fl (81.0-99.0); Mean Platelet Volume 7.6 fL (7.4-10.4); Platelet Count 223 thou/uL (130-400); Red Blood Cell (RBC) Count 3.88 mill/uL (4.20-5.40); White Blood Cell (WBC) Count 5.9 thou/uL (4.8-10.8)
[2017-11-12 10:52] LABS: ALT (SGPT) 9 U/L (8-55); AST (SGOT) 16 U/L (5-34); Albumin 4.1 g/dL (3.4-4.8); Alkaline Phosphatase 63 U/L (40-150); Anion Gap 13 mmol/L (10-20); BUN (Urea Nitrogen) 23 mg/dL (9.8-20.1); Bilirubin, Total 0.4 mg/dL (0.2-1.2); CK (CPK) 181 U/L (29-168); Calc. Creatinine Clearance 0 mL/min (70-130); Calcium 9.1 mg/dL (7.8-10.44); Carbon Dioxide 26 mmol/L (23-31); Chloride 105 mmol/L (98-107); Estimated GFR-MDRD 55; Globulin 2.7 g/dL (2.4-3.5); Glucose 115 mg/dL (83-110); Potassium 4.8 mmol/L (3.5-5.1); Protein, Total 6.8 g/dL (6.0-8.3); Sodium 139 mmol/L (136-145)
[2017-11-12 10:57] LABS: Bilirubin Negative (Negative); Blood, Urine Negative (Negative); Clarity CLEAR (Clear); Glucose, Urine (Dipstick) >=1000 mg/dL (Negative); Leukocyte Negative (Negative); Nitrite Negative (Negative); Protein, Urine (Dipstick) Negative (Neg-Trace); Specific Gravity, Urine 1.027 (1.002-1.036); Urobilinogen 0.2 mg/dL (0.2-1.0); pH, Urine 5.5 (5.0-9.0)
[2017-11-12 10:59] LABS: Troponin I Less than 0.010 ng/mL (< 0.028)
--- NOTE | 2017-11-12 11:33 | CT ---
CT HEAD NONCONTRAST: Date: 11/12/17 COMPARISON: 11/07/17. INDICATION: Post-traumatic pain. FINDINGS: There is mild parenchyma volume loss with compensatory dilatation of the ventricular system. Remote l acunar infarction is seen at the left basal ganglia, stable. No interval acute intracranial hemorrhag e, mass effect, or midline shift. Stable round density of the right parietal scalp indicates a sebace ous cyst. Correlate with physical exam for confirmation. IMPRESSION: No acute intracranial abnormalities, with similar CT appearance to the brain, when referencing exam. POS: [facility]
--- NOTE | 2017-11-12 11:48 | CT ---
CT CERVICAL SPINE WITHOUT CONTRAST: Date: 11/12/17 HISTORY: Patient fell. Lightheadedness. Post-traumatic pain. COMPARISON: None. TECHNIQUE: CT cervical spine is performed without contrast. Reformatted images are submitted for interpretation. FINDINGS: Visualized soft tissue neck structures are unremarkable. Aerodigestive tract is patent. No obvious mu cosal abnormality. Atherosclerosis of the carotid arteries is identified. Mild heterogeneity of the thyroid isthmus, incompletely evaluated. Stable spiculation in the left kenny g apex, likely representing scar. Varying degree of central canal stenosis and foraminal narrowing on the basis of degenerative change. No craniocervical dissociation. Lateral masses of C1 and C2 articulate appropriately. Odontoid proces s is intact. Adequate alignment of the facets. Vertebral body height is maintained. No fracture. Stra ightening of normal cervical lordosis likely due to patient positioning, muscle spasm, or cervical co llar. C3-C4: Broad based disc osteophyte complex with at least mild central canal stenosis. Moderate bilateral for aminal narrowing. C4-C5: Central disc osteophyte complex with at least moderate central canal stenosis. Severe right and moder ate left foraminal narrowing. C5-C6: Broad based disc osteophyte complex with a left paracentral component. Mild to moderate central canal stenosis. Moderate right and mild left foraminal narrowing. Additional degenerative change is noted in the lower cervical spine. IMPRESSION: 1. No fracture. 2. Degenerative changes of cervical spine as above. Nonemergent MRI if clinically warranted. POS: [facility]
--- NOTE | 2017-11-12 11:50 | RAD ---
LUMBAR SPINE 3 VIEWS: Date: 11/12/17 HISTORY: 72-year-old female with low back pain following a fall. COMPARISON: 10/09/10. FINDINGS: There is minimal vertical height loss of T11 vertebral body, age-indeterminate, but appears to be new from the 2010 study. It does not appear significantly changed from the prior CT scan of 09/26/17. Ge nerative disc osteophytosis and facet arthrosis. Minimal bony demineralization. No evidence for acute fracture. IMPRESSION: Spondylosis. Stable mild vertical height loss of T11. POS: [facility]
--- NOTE | 2017-11-12 11:51 | RAD ---
LEFT KNEE 4 VIEWS: Date: 11/12/17 HISTORY: 72-year-old female with history of left knee pain following a fall. FINDINGS: Generalized degenerative changes of the left knee joint. Prominent vascular calcifications. No acute fracture or dislocation. IMPRESSION: Degenerative change without acute fracture or dislocation. POS: [facility]
[2017-11-12] MEDS ORDERED: Acetaminophen 325 MG TAB ONE (11:58)
== END 2017-11-12 16:37 ==
LOC: ERS 09:27
DX: M25.562 Pain in left knee (principal); R42 Dizziness and giddiness; I25.2 Old myocardial infarction; E11.9 Type 2 diabetes mellitus without complications; I10 Essential (primary) hypertension; F41.9 Anxiety disorder, unspecified; F32.9 Major depressive disorder, single episode, unspecified; W18.30XA Fall on same level, unspecified, initial encounter
CPT/HCPCS: 36415; 70450; 72100; 72125; 80053; 81003; 82550; 82553; 84484; 85025; 87086; 93005

== ENCOUNTER 2018-01-19 07:28 | Emergency (ER) | payer MEDICARE, MEDICAID ==
--- NOTE | 2018-01-19 09:45 | RAD ---
RIGHT FOOT 3 VIEWS: Date: 01/19/18 HISTORY: Right foot pain. FINDINGS: Lisfranc joint alignment is anatomic. Plantar arch is maintained. Osteophytosis throughout the foot. Osseous structures are demineralized. Plantar enthesophyte from the inferior aspect of the calcaneus. No acute fracture, dislocation, or aggressive osseous erosions. IMPRESSION: 1. 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 2. Osteoporosis. POS: [facility]
== END 2018-01-19 09:35 | disposition home or self-care (01) ==
LOC: ERS 07:28
DX: M21.611 Bunion of right foot (principal); M25.572 Pain in left ankle and joints of left foot; I25.10 Atherosclerotic heart disease of native coronary artery without angina pectoris; I25.2 Old myocardial infarction; I10 Essential (primary) hypertension; E11.40 Type 2 diabetes mellitus with diabetic neuropathy, unspecified; F41.9 Anxiety disorder, unspecified; F32.9 Major depressive disorder, single episode, unspecified

== ENCOUNTER 2018-01-22 09:36 | Emergency (ER) | payer MEDICARE, MEDICAID | END 2018-01-22 11:18 | LOC: ERS 09:36 | DX: M25.571 Pain in right ankle and joints of right foot (principal) | CPT/HCPCS: 99283 ==

== ENCOUNTER 2018-01-23 12:23 | Emergency (ER) | payer MEDICARE, OTHER ==
[2018-01-23 12:45] LABS: Bilirubin Negative (Negative); Blood, Urine Negative (Negative); Clarity CLEAR (Clear); Glucose, Urine (Dipstick) 500 mg/dL (Negative); Leukocyte Negative (Negative); Nitrite Negative (Negative); Protein, Urine (Dipstick) Negative (Neg-Trace); Specific Gravity, Urine 1.007 (1.002-1.036); Urobilinogen 0.2 mg/dL (0.2-1.0); pH, Urine 6.5 (5.0-9.0)
[2018-01-23 13:18] LABS: #Eosinphils 0.2 thou/uL (0.0-0.7); #Lymphocytes 1.9 thou/uL (1.20-3.40); #Monocytes 0.6 thou/uL (0.11-0.59); #Neutrophils 5.4 thou/uL (1.40-6.50); %Basophils 0.3 % (0.0-1.0); %Eosinophils 2.1 % (0.0-10.0); %Lymphocytes 23.1 % (21.0-51.0); %Monocytes 7.8 % (0.0-10.0); %Neutrophils 66.7 % (42.0-75.0); Hemoglobin 11.9 g/dL (12.0-16.0); Mean Corpuscular Hemoglobin 29.5 pg (27.0-31.0); Mean Corpuscular Volume 89.5 fL (78.0-98.0); Mean Platelet Volume 7.5 fL (7.4-10.4); Platelet Count 242 thou/uL (130-400); RBC Distribution Width 13.5 % (11.5-14.5); Red Blood Cell (RBC) Count 4.04 mill/uL (4.20-5.40)
[2018-01-23 13:39] LABS: ALT (SGPT) 21 U/L (8-55); AST (SGOT) 23 U/L (5-34); Albumin 4.3 g/dL (3.4-4.8); Alkaline Phosphatase 76 U/L (40-150); Anion Gap 12 mmol/L (10-20); BUN (Urea Nitrogen) 13 mg/dL (9.8-20.1); Bilirubin, Total 0.5 mg/dL (0.2-1.2); Calc. Creatinine Clearance 0 mL/min (70-130); Calcium 8.9 mg/dL (7.8-10.44); Carbon Dioxide 23 mmol/L (23-31); Chloride 105 mmol/L (98-107); Estimated GFR-MDRD 58; Glucose 132 mg/dL (83-110); Protein, Total 7.3 g/dL (6.0-8.3); Sodium 136 mmol/L (136-145)
[2018-01-23] MEDS ORDERED: Acetaminophen 325 MG TAB ONE (13:43)
== END 2018-01-23 14:29 | disposition home or self-care (01) ==
LOC: ERS 12:23
DX: M79.674 Pain in right toe(s) (principal); I10 Essential (primary) hypertension; F32.9 Major depressive disorder, single episode, unspecified
CPT/HCPCS: 36415; 80053; 81003; 85025; 99283

== ENCOUNTER 2018-01-26 16:26 | Emergency (ER) | payer MEDICARE, OTHER ==
[2018-01-26] MEDS ORDERED: Acetaminophen 500 MG TAB ONE (17:01)
== END 2018-01-26 17:59 | disposition home or self-care (01) ==
LOC: ERS 16:26
DX: S50.11XA Contusion of right forearm, initial encounter (principal); E11.9 Type 2 diabetes mellitus without complications; I10 Essential (primary) hypertension; F41.9 Anxiety disorder, unspecified; F32.9 Major depressive disorder, single episode, unspecified; Y04.8XXA Assault by other bodily force, initial encounter
CPT/HCPCS: 99283

== ENCOUNTER 2018-02-04 11:23 | Emergency (ER) | payer MEDICARE, OTHER ==
[2018-02-04] MEDS ORDERED: ISOVUE-370 76%-LOCM 1 ML ONE (11:24)
[2018-02-04] MEDS ORDERED: Dextrose 50% Abboject 50 ML SYRINGE ONE (11:44)
[2018-02-04 11:59] LABS: #Eosinphils 0.1 thou/uL (0.0-0.7); #Lymphocytes 1.9 thou/uL (1.20-3.40); #Monocytes 0.5 thou/uL (0.11-0.59); %Basophils 0.2 % (0.0-1.0); %Eosinophils 1.4 % (0.0-10.0); %Lymphocytes 25.2 % (21.0-51.0); %Monocytes 6.4 % (0.0-10.0); %Neutrophils 66.8 % (42.0-75.0); Hemoglobin 11.3 g/dL (12.0-16.0); Mean Corpuscular HGB CONC 31.4 g/dL (32.0-36.0); Mean Corpuscular Hemoglobin 28.4 pg (27.0-31.0); Mean Corpuscular Volume 90.5 fL (78.0-98.0); Mean Platelet Volume 7.5 fL (7.4-10.4); Platelet Count 244 thou/uL (130-400); RBC Distribution Width 13.5 % (11.5-14.5); Red Blood Cell (RBC) Count 3.98 mill/uL (4.20-5.40); White Blood Cell (WBC) Count 7.6 thou/uL (4.8-10.8)
[2018-02-04 12:17] LABS: Bilirubin Negative (Negative); Blood, Urine Negative (Negative); Clarity CLEAR (Clear); Glucose, Urine (Dipstick) 250 mg/dL (Negative); Leukocyte Small (Negative); Nitrite Negative (Negative); Protein, Urine (Dipstick) Negative (Neg-Trace); Specific Gravity, Urine 1.008 (1.002-1.036); Urobilinogen 0.2 mg/dL (0.2-1.0)
[2018-02-04 12:18] LABS: ALT (SGPT) 11 U/L (8-55); AST (SGOT) 18 U/L (5-34); Alkaline Phosphatase 62 U/L (40-150); Anion Gap 11 mmol/L (10-20); BUN (Urea Nitrogen) 15 mg/dL (9.8-20.1); Bilirubin, Total 0.4 mg/dL (0.2-1.2); Calc. Creatinine Clearance 0 mL/min (70-130); Calcium 8.5 mg/dL (7.8-10.44); Carbon Dioxide 24 mmol/L (23-31); Chloride 105 mmol/L (98-107); Estimated GFR-MDRD 65; Globulin 2.8 g/dL (2.4-3.5); Glucose 84 mg/dL (83-110); Lipase 86 U/L (8-78); Potassium 4.1 mmol/L (3.5-5.1); Protein, Total 6.8 g/dL (6.0-8.3); Sodium 136 mmol/L (136-145)
[2018-02-04 12:19] LABS: Bacteria/HPF None Seen HPF (None Seen); Hyaline Casts/LPF 0-3 HYALINE CAST LPF (0-3 Hyaline); RBC/HPF 0-3 HPF (0-3); Squamous Epithelial None Seen HPF (0-3); WBC/HPF 0-3 HPF (0-3)
--- NOTE | 2018-02-04 13:41 | CT ---
ABDOMEN AND PELVIC CT SCAN WITH IV CONTRAST: History: 72-year-old female with history of abdominal pain and hypoglycemia. Comparison: 09-05-17 FINDINGS: Three vessel coronary ossific disease. The lung bases are clear. Liver, somewhat small contracted gal lbladder, pancreas, spleen, and adrenal glands are unremarkable. Small hiatal hernia. No renal calcul us or acute obstruction. No evidence of bowel obstruction, abscess, adenopathy, or abnormal fluid collection. Lumbar spondylosis. Atherosclerosis of the aorta and larger abdominal arteries. IMPRESSION: No significant acute process in the abdomen or pelvis. Stable findings from prior study. POS: [facility]
[2018-02-04] MEDS ORDERED: Acetaminophen 500 MG TAB ONE (14:11)
== END 2018-02-04 14:20 | disposition home or self-care (01) ==
LOC: ERS 11:23
DX: E11.649 Type 2 diabetes mellitus with hypoglycemia without coma (principal); I10 Essential (primary) hypertension; F41.9 Anxiety disorder, unspecified; F32.9 Major depressive disorder, single episode, unspecified; Z79.84 Long term (current) use of oral hypoglycemic drugs; Z79.899 Other long term (current) drug therapy
CPT/HCPCS: 36415; 36416; 74177; 80053; 81003; 81015; 83690; 85025; 96374

== ENCOUNTER 2018-02-11 19:45 | Emergency (ER) | payer MEDICARE, MEDICAID ==
[2018-02-11] MEDS ORDERED: Dextrose 50% Abboject 50 ML SYRINGE ONE (19:54)
[2018-02-11 20:06] LABS: #Eosinphils 0.2 thou/uL (0.0-0.7); #Lymphocytes 3.2 thou/uL (1.20-3.40); #Monocytes 0.7 thou/uL (0.11-0.59); #Neutrophils 4.6 thou/uL (1.40-6.50); %Basophils 0.5 % (0.0-1.0); %Eosinophils 2.4 % (0.0-10.0); %Lymphocytes 36.7 % (21.0-51.0); %Monocytes 7.9 % (0.0-10.0); %Neutrophils 52.5 % (42.0-75.0); Hemoglobin 11.7 g/dL (12.0-16.0); Mean Corpuscular Hemoglobin 29.6 pg (27.0-31.0); Mean Corpuscular Volume 89.5 fL (78.0-98.0); Mean Platelet Volume 7.2 fL (7.4-10.4); Platelet Count 229 thou/uL (130-400); RBC Distribution Width 13.9 % (11.5-14.5); Red Blood Cell (RBC) Count 3.96 mill/uL (4.20-5.40); White Blood Cell (WBC) Count 8.7 thou/uL (4.8-10.8)
[2018-02-11 20:26] LABS: ALT (SGPT) 12 U/L (8-55); AST (SGOT) 19 U/L (5-34); Albumin 4.2 g/dL (3.4-4.8); Alkaline Phosphatase 68 U/L (40-150); Anion Gap 16 mmol/L (10-20); BUN (Urea Nitrogen) 18 mg/dL (9.8-20.1); Bilirubin, Total 0.3 mg/dL (0.2-1.2); Calc. Creatinine Clearance 0 mL/min (70-130); Calcium 8.8 mg/dL (7.8-10.44); Carbon Dioxide 22 mmol/L (23-31); Chloride 109 mmol/L (98-107); Estimated GFR-MDRD 58; Globulin 2.9 g/dL (2.4-3.5); Potassium 3.7 mmol/L (3.5-5.1); Protein, Total 7.1 g/dL (6.0-8.3); Sodium 143 mmol/L (136-145)
[2018-02-11 20:28] LABS: Glucose 45 mg/dL (83-110)
--- NOTE | 2018-02-11 20:53 | RAD ---
LEFT KNEE FOUR VIEWS: 02/11/18 HISTORY: Fall. Left knee pain. FINDINGS/IMPRESSION: Comparison is made with exam of 11/12/17. Degenerative changes are again seen. No acute fractures or dislocations are identified. POS: [facility]
--- NOTE | 2018-02-11 20:58 | CT ---
CT BRAIN WITHOUT CONTRAST: 02/11/18 HISTORY: Trauma, fall, no loss of consciousness. Headache. FINDINGS: Comparison is made with exam of 11/12/17. Changes of cortical atrophy and chronic small vessel ischemic disease are again seen. No evidence of acute infarct, hemorrhage, midline shift or abnormal extra-axial fluid collections are noted. The eric tricular is appropriate and the basilar cisterns patent. The bony calvarium is intact. The visualized paranasal sinuses and mastoid air cells are well aerated. There is soft tissue swelling in the right frontotemporal scalp. IMPRESSION: No CT evidence of acute intracranial process. POS: [facility]
--- NOTE | 2018-02-11 21:03 | CT ---
CT CERVICAL SPINE WITH CORONAL AND SAGITTAL REFORMATIONS: 02/11/18 HISTORY: Fall, neck pain. FINDINGS: Comparison made with exam of 11/12/17. There is loss of cervical lordosis with straightening of the cervical spine. Multilevel degenerative changes are again seen. No evidence of acute fracture, subluxation, or facet malalignment is seen. Loli cency in the C5 vertebral body is stable. Scarring in the left lung apex is redemonstrated. IMPRESSION: No evidence of acute process. POS: [facility]
[2018-02-11] MEDS ORDERED: Acetaminophen 500 MG TAB ONE (22:03)
== END 2018-02-11 22:42 | disposition home or self-care (01) ==
LOC: ERS 19:45
DX: S00.03XA Contusion of scalp, initial encounter (principal); S80.02XA Contusion of left knee, initial encounter; E11.9 Type 2 diabetes mellitus without complications; I10 Essential (primary) hypertension; F32.9 Major depressive disorder, single episode, unspecified; F41.9 Anxiety disorder, unspecified; Z79.84 Long term (current) use of oral hypoglycemic drugs; Z79.899 Other long term (current) drug therapy; W18.00XA Striking against unspecified object with subsequent fall, initial encounter
CPT/HCPCS: 36416; 70450; 72125; 80053; 85025; 96374

== ENCOUNTER 2018-02-13 16:43 | Inpatient (IN) | payer MEDICARE, MEDICAID ==
[2018-02-13] MEDS ORDERED: Dextrose 50% Abboject 50 ML SYRINGE ONE (16:58)
[2018-02-13 17:26] LABS: #Basophils 0.1 thou/uL (0.0-0.2); #Eosinphils 0.2 thou/uL (0.0-0.7); #Monocytes 0.8 thou/uL (0.11-0.59); #Neutrophils 5.6 thou/uL (1.40-6.50); %Basophils 0.6 % (0.0-1.0); %Eosinophils 1.7 % (0.0-10.0); %Monocytes 7.8 % (0.0-10.0); %Neutrophils 58.8 % (42.0-75.0); Hemoglobin 11.6 g/dL (12.0-16.0); Mean Corpuscular HGB CONC 33.2 g/dL (32.0-36.0); Mean Corpuscular Hemoglobin 29.8 pg (27.0-31.0); Mean Corpuscular Volume 89.9 fL (78.0-98.0); Mean Platelet Volume 7.3 fL (7.4-10.4); Platelet Count 236 thou/uL (130-400); RBC Distribution Width 13.9 % (11.5-14.5); Red Blood Cell (RBC) Count 3.87 mill/uL (4.20-5.40); White Blood Cell (WBC) Count 9.5 thou/uL (4.8-10.8)
[2018-02-13 17:46] LABS: ALT (SGPT) 13 U/L (8-55); AST (SGOT) 23 U/L (5-34); Albumin 4.2 g/dL (3.4-4.8); Alkaline Phosphatase 64 U/L (40-150); Anion Gap 18 mmol/L (10-20); BUN (Urea Nitrogen) 14 mg/dL (9.8-20.1); Bilirubin, Total 0.4 mg/dL (0.2-1.2); CK (CPK) 239 U/L (29-168); Calc. Creatinine Clearance 0 mL/min (70-130); Calcium 8.8 mg/dL (7.8-10.44); Carbon Dioxide 20 mmol/L (23-31); Chloride 103 mmol/L (98-107); Estimated GFR-MDRD 61; Globulin 2.8 g/dL (2.4-3.5); Lipase 104 U/L (8-78); Potassium 3.8 mmol/L (3.5-5.1); Sodium 137 mmol/L (136-145)
[2018-02-13 17:48] LABS: Troponin I Less than 0.010 ng/mL (< 0.028)
[2018-02-13 17:50] LABS: Glucose 46 mg/dL (83-110)
[2018-02-13 17:50] LABS: Bilirubin Negative (Negative); Blood, Urine Negative (Negative); Clarity CLEAR (Clear); Glucose, Urine (Dipstick) 500 mg/dL (Negative); Leukocyte Moderate (Negative); Nitrite Negative (Negative); Protein, Urine (Dipstick) Negative (Neg-Trace); Specific Gravity, Urine 1.007 (1.002-1.036); pH, Urine 6.5 (5.0-9.0)
[2018-02-13 17:52] LABS: Bacteria/HPF None Seen HPF (None Seen); Hyaline Casts/LPF 0-3 HYALINE CAST LPF (0-3 Hyaline); Pathc Cast-AUWi Flag 0.14 (0-2.49); Squamous Epithelial 0-3 HPF (0-3)
[2018-02-13 17:53] LABS: Yeast-AUWi Flag 29.5 (0-25.0)
[2018-02-13 18:00] LABS: Yeast-All Forms None Seen HPF (None Seen)
--- NOTE | 2018-02-13 18:09 | RAD ---
RADIOGRAPH CHEST 1 VIEW: 02/13/18 HISTORY: 72-year-old female with chest pain. FINDINGS: There are no air space densities, pulmonary edema, pneumothorax, or cardiomegaly. The lateral costop hrenic angles are sharp. IMPRESSION: No acute cardiopulmonary findings. supriya [] POS: [facility]
--- NOTE | 2018-02-13 18:11 | CT ---
CT OF HEAD NONCONTRAST: 02/13/18 INDICATION: Altered mental status. Reference made to 02/11/18. FINDINGS: Mild parenchymal volume loss with compensatory dilation of ventricular system is present. There is mi ld chronic microvascular ischemic disease. Stable remote cavitary lacunar infarction of the left basa l ganglia is seen. No interval acute intracranial hemorrhage, mass effect or midline shift. IMPRESSION: No acute intracranial abnormality. Mild chronic microvascular ischemic disease with superimposed remote cavitary lacunar infarction. POS: [facility]
[2018-02-13] MEDS ORDERED: Acetaminophen 500 MG TAB ONE (19:02)
[2018-02-13] MEDS ORDERED: cefTRIAXone\\ROCEPHIN 1 GM VIAL ONE (19:05)
[2018-02-13 20:42] VITALS: BMI 26.0
[2018-02-13] MEDS ORDERED: Dextrose 50% Abboject 50 ML SYRINGE SLOW IVP PRN (23:28)
[2018-02-13] MEDS ORDERED: Dextrose 5% in Water 1,000 ML IV PRN (23:28)
[2018-02-13] MEDS ORDERED: Ondansetron HCl/PF 4 MG/2 ML Vial IVP PRN (23:28)
[2018-02-13] MEDS: Acetaminophen 325 MG TAB PO PRN (23:28)
[2018-02-14] MEDS: Acetaminophen 325 MG TAB PO PRN ×4 (04:07→20:49)
[2018-02-14 05:24] LABS: #Eosinphils 0.1 thou/uL (0.0-0.7); #Lymphocytes 1.5 thou/uL (1.20-3.40); #Monocytes 0.6 thou/uL (0.11-0.59); #Neutrophils 3.1 thou/uL (1.40-6.50); %Basophils 0.7 % (0.0-1.0); %Eosinophils 2.8 % (0.0-10.0); %Lymphocytes 27.5 % (21.0-51.0); %Monocytes 10.3 % (0.0-10.0); %Neutrophils 58.8 % (42.0-75.0); Hemoglobin 10.9 g/dL (12.0-16.0); Mean Corpuscular HGB CONC 32.3 g/dL (32.0-36.0); Mean Corpuscular Hemoglobin 29.2 pg (27.0-31.0); Mean Corpuscular Volume 90.5 fL (78.0-98.0); Mean Platelet Volume 7.7 fL (7.4-10.4); Platelet Count 216 thou/uL (130-400); Red Blood Cell (RBC) Count 3.73 mill/uL (4.20-5.40); White Blood Cell (WBC) Count 5.3 thou/uL (4.8-10.8)
[2018-02-14 05:42] LABS: Anion Gap 12 mmol/L (10-20); BUN (Urea Nitrogen) 12 mg/dL (9.8-20.1); Calc. Creatinine Clearance 67 mL/min (70-130); Carbon Dioxide 23 mmol/L (23-31); Chloride 110 mmol/L (98-107); Estimated GFR-MDRD 68; Glucose 60 mg/dL (83-110); Sodium 141 mmol/L (136-145)
--- NOTE | 2018-02-14 07:21 | HP ---
CODE STATUS: FULL CODE. TIME OF EVALUATION: 10:20 p.m. PRIMARY CARE PHYSICIAN: Dr. Tarah Beckwith. CHIEF COMPLAINT: Hypoglycemia. HISTORY OF PRESENT ILLNESS: A 72-year-old female patient with a past medical history of diabetes typ e 2, hypertension, coronary artery disease, status post stents who came to the hospital after having an episode of hypoglycemia, patient reportedly has been having associated weakness for about 1 week, no chest pain or shortness of breath, no clear triggers, no alleviating factors. Patient is on p.o. antidiabetic medications. Symptoms were reported as moderate to severe. REVIEW OF SYSTEMS: Constitutional: No fever, no chills. Generalized weakness has been reported. R espiratory: No cough, sputum production, shortness of breath, no chest pain, palpitation, shortness of breath. Gastrointestinal: No nausea, no vomiting or diarrhea, abdominal pain. Central nervous s ystem: No dizziness, headache or feeling lightheaded. Genitourinary: No burning with urination. E xtremities: No leg swelling. All other systems were reviewed and negative except for the findings m entioned above. PAST MEDICAL HISTORY: Was mentioned in the HPI. SOCIAL HISTORY: Patient lives in a long-term care facility. No alcohol, no drugs. No smoking histo ry. PAST SURGICAL HISTORY: The patient has previous stents. PSYCHIATRIC HISTORY: Includes anxiety, depression. KNOWN ALLERGIES: No known drug allergies. REPORTED MEDICATIONS: None. PHYSICAL EXAMINATION: VITAL SIGNS: Heart rate 87, respiratory rate was 14, temperature 98.2, pain 5/10, oxygen saturation 96% on room air, blood pressure was 182/79. GENERAL APPEARANCE: The patient is alert, oriented, not in any acute distress. HEENT: Eyes: Normal conjunctiva. Moist oral mucosa. Anicteric. NECK: No JVD. Ecchymosis over the right jain. RESPIRATORY: Bilateral air entry. No rales, no wheezing. Symmetric expansion. CARDIOVASCULAR: Normal rate, regular rhythm. No murmurs, no gallop, no edema. ABDOMEN: Soft, normal bowel sounds. MUSCULOSKELETAL: Baseline range of motion and strength. No tenderness. SKIN: Warm and intact. No pallor, no rash, no redness. NEUROLOGIC: Baseline sensory. No evidence of any new focal weakness. Baseline speech. Cranial ner ves seem to be intact. PSYCHIATRIC: The patient is in good mood. No anxiety. Oriented. Suboptimal judgment. Requested lizette rojas to answer questions. IMAGING: EKG was reviewed. The patient has normal sinus rhythm, possible left atrial enlargement, n onspecific intraventricular block, ventricular rate 82, IA 152, QRS 136, QT corrected 504. Radiology head CT was negative for acute findings. Chest x-ray was negative for acute finding. LABORATORY DATA: Reviewed. The patient has white count 9.5, hemoglobin 11.6, MCV 89, platelet count 236. Sodium 137, potassium 3.8, chloride 103, carbon dioxide 20, anion gap 18, BUN 14, creatinine 0 .9, GFR 61, glucose 46 on presentation. Repeat glucose was 158. CK 239. Troponin was negative. Li pase 104. UA presented with white count 7-10. ASSESSMENT AND PLAN: The patient will be placed in the hospital for the following medical problems. 1. Urinary tract infection with UA positive, this is likely causing the hypoglycemia, suspect she shearer s had no significant changes in the medication. The patient has been started on antibiotics and will be continued for now. Adjust treatment as per sensitivity from urine culture. 2. Hypoglycemia due to uncontrolled diabetes, likely secondary to underlying urinary tract infection , we will reconcile home medications, place the patient in a sliding scale. 3. Acute encephalopathy secondary to hypoglycemia, which is metabolic, this has resolved. 4. Deep venous thrombosis prophylaxis. 5. History of hypertension that was uncontrolled on presentation with systolic blood pressure 182/79 , reconcile home medications. Adjust treatment as needed. 6. Ecchymosis of the right jain, secondary to fall. No other complications were found.
[2018-02-14] MEDS: Citalopram 20 MG TAB PO SCH (09:31)
[2018-02-14] MEDS: Clopidogrel Bisulfate 75 MG TAB PO SCH (09:31)
[2018-02-14] MEDS: Enoxaparin Sodium 40 MG/0.4 ML SYRINGE SC SCH (09:31)
[2018-02-14] MEDS: Lisinopril 20 MG TAB PO SCH (09:32)
[2018-02-14] MEDS: Gabapentin 300 MG CAP PO SCH ×2 (09:32→19:52)
[2018-02-14] MEDS: Fish Oil 1,000 MG CAP PO SCH (09:32)
[2018-02-14] MEDS: HumaLOG 300 UNITS/3 ML VIAL SC PRN (13:30)
[2018-02-14] MEDS: cefTRIAXone\\ROCEPHIN 1 GM in Sodium Chloride 0.9% 100 ML IVPB SCH (16:54)
--- NOTE | 2018-02-14 17:04 | PDOC.PN ---
- Subjective Encounter Start Date: 02/14/18 Encounter Start Time: 17:01 Pt seen for followup re: UTI. Had hypoglycemia earlier today. Denies chest pain, shortness of breath, fevers or chills. - Objective Resuscitation Status: Resuscitation Status FULL:Full Resuscitation MAR Reviewed: Yes Vital Signs & Weight: Vital Signs (12 hours) Temp Pulse Resp BP BP BP BP 02/14/18 15:27 98.7 F 61 20 163/74 H 02/14/18 10:59 98.3 F 67 16 161/74 H 02/14/18 09:32 142/65 H 02/14/18 08:00 98.1 F 61 20 02/14/18 07:35 98.1 F 61 20 142/65 H 139/65 135/65 Pulse Ox 02/14/18 15:27 94 L 02/14/18 10:59 97 02/14/18 09:32 02/14/18 08:00 02/14/18 07:35 94 L Weight Weight 156 lb 8 oz I&O: 02/13/18 02/14/18 02/15/18 06:59 06:59 06:59 Intake Total 500 120 Output Total 1700 200 Balance -1200 -80 Result Diagrams: 02/14/18 04:36 02/14/18 04:35 Additional Labs: Accuchecks 02/14/18 02/14/18 02/14/18 16:48 13:04 11:01 POC Glucose 124 H 223 H 277 H 02/14/18 02/14/18 02/13/18 07:25 05:55 20:42 POC Glucose 178 H 83 158 H EKG Reviewed by me: Yes (Tele: NSR) Phys Exam - Physical Examination Constitutional: NAD HEENT: moist MMs, sclera anicteric, oral pharynx no lesions, 2+ tonsils Neck: no nodes, no JVD, supple, full ROM Respiratory: no wheezing, no rales, no rhonchi, clear to auscultation bilateral Cardiovascular: RRR, no rub S1, S2 Gastrointestinal: soft, non-tender, no distention, positive bowel sounds Neurological: moves all 4 limbs Psychiatric: normal affect Deviation from normal: Oriented to person and place, not to time Skin: no rash Dx/Plan (1) UTI (urinary tract infection) Status: Acute Comment: continue IV ceftriaxone, follow urine culture (2) Hypoglycemia Code(s): E16.2 - HYPOGLYCEMIA, UNSPECIFIED Status: Acute Comment: decrease insulin doses, resume levemir. Hold oral antidiabetics. (3) Acute encephalopathy Code(s): G93.40 - ENCEPHALOPATHY, UNSPECIFIED Status: Acute Comment: improving (4) CAD (coronary artery disease) Code(s): I25.10 - ATHSCL HEART DISEASE OF [place] CORONARY ARTERY W/O ANG PCTRS Status: Chronic Comment: stable (5) Dementia Code(s): F03.90 - UNSPECIFIED DEMENTIA WITHOUT BEHAVIORAL DISTURBANCE Status: Chronic Comment: now with overlying acute encephalopathy (6) Dyslipidemia Code(s): E78.5 - HYPERLIPIDEMIA, UNSPECIFIED Status: Chronic Comment: stable (7) Hypertension Code(s): I10 - ESSENTIAL (PRIMARY) HYPERTENSION Status: Chronic Comment: Monitor vital signs, titrate antihypertensives as needed - Plan continue antibiotics, PT/OT Given dementia, acute encephalopathy makes it quite complicated to manage diabetes, and pt already had episodes of hyperglycemia. Unsafe to discharge home at this time. Discussed with case management. Will change pt's status to inpatient. Review of Systems - Review of Systems Constitutional: weakness. negative: fever, chills, sweats, malaise Respiratory: negative: Cough, Shortness of Breath, SOB with Excertion, Pleuritic Pain, Wheezing Cardiovascular: negative: chest pain, palpitations, orthopnea, paroxysmal nocturnal dyspnea, edema, light headedness Gastrointestinal: negative: Nausea, Vomiting, Abdominal Pain, Diarrhea, Constipation, Melena, Hematochezia Genitourinary: Dysuria. negative: Frequency, Incontinence, Hematuria, Retention Skin: negative: Rash, Lesions, [place], Bruising Neurological: Weakness, Confusion. negative: Numbness, Incoordination, Change in Speech, Seizures - Medications/Allergies Allergies/Adverse Reactions: Allergies Allergy/AdvReac Type Severity Reaction Status Date / Time No Known Drug Allergies Allergy Verified 02/13/18 20:58 Medications: Current Medications Acetaminophen (Tylenol) 650 mg PO Q6H PRN PRN Reason: Headache/Fever or Pain Last Admin: 02/14/18 15:51 Dose: 650 mg Atorvastatin Calcium (Lipitor) 20 mg PO HS [facility] Citalopram Hydrobromide (Celexa) 20 mg PO DAILY [facility] Last Admin: 02/14/18 09:31 Dose: 20 mg Clopidogrel Bisulfate (Plavix) 75 mg PO DAILY [facility] Last Admin: 02/14/18 09:31 Dose: 75 mg Dextrose/Water (Dextrose 50%) 25 gm SLOW IVP PRN PRN PRN Reason: Hypoglycemia Enoxaparin Sodium (Lovenox) 40 mg SC 0900 [facility] Last Admin: 02/14/18 09:31 Dose: 40 mg Famotidine (Pepcid) 20 mg PO HS [facility] Fish Oil (Fish Oil) 1,000 mg PO DAILY [facility] Last Admin: 02/14/18 09:32 Dose: 1,000 mg Gabapentin (Neurontin) 300 mg PO BID [facility] Last Admin: 02/14/18 09:32 Dose: 300 mg Glucagon (Glucagon) 1 mg IM PRN PRN PRN Reason: Hypoglycemia Ceftriaxone Sodium 1 gm/ (Sodium Chloride) 100 mls @ 200 mls/hr IVPB 1700 [facility] Last Admin: 02/14/18 16:54 Dose: 100 mls Dextrose/Water (D5w) 1,000 mls @ 0 mls/hr IV .Q0M PRN; As Directed PRN Reason: Hypoglycemia Insulin Glargine 15 units/ (Miscellaneous Medication) 0.15 mls @ 0 mls/hr SC BID [facility] Insulin Human Lispro (Humalog) 0 units SC .MILD SLIDING SCALE PRN PRN Reason: Mild Correctional Scale Last Admin: 02/14/18 13:30 Dose: 3 unit Lisinopril (Zestril) 20 mg PO DAILY [facility] Last Admin: 02/14/18 09:32 Dose: 20 mg Memantine (Namenda) 5 mg PO BID [facility] Last Admin: 02/14/18 09:32 Dose: 5 mg Ondansetron HCl (Zofran) 4 mg IVP Q6H PRN PRN Reason: Nausea/Vomiting Sodium Chloride (Flush - Normal Saline) 10 ml IVF Q12HR [facility] Sodium Chloride (Flush - Normal Saline) 10 ml IVF PRN PRN PRN Reason: Saline Flush
[2018-02-14] MEDS: Atorvastatin Calcium 20 MG TAB PO SCH (19:52)
[2018-02-14] MEDS: Famotidine 20 MG TAB PO SCH (19:52)
[2018-02-14] MEDS: Insulin Glargine 15 UNITS in Pre-Filled Syringe 1 EACH SC SCH (20:26)
[2018-02-15] MEDS: Clopidogrel Bisulfate 75 MG TAB PO SCH (08:36)
[2018-02-15] MEDS: Citalopram 20 MG TAB PO SCH (08:36)
[2018-02-15] MEDS: Enoxaparin Sodium 40 MG/0.4 ML SYRINGE SC SCH (08:37)
[2018-02-15] MEDS: Insulin Glargine 15 UNITS in Pre-Filled Syringe 1 EACH SC SCH ×2 (08:38→19:36)
[2018-02-15] MEDS: Lisinopril 20 MG TAB PO SCH (08:38)
[2018-02-15] MEDS: Gabapentin 300 MG CAP PO SCH ×2 (08:38→19:36)
[2018-02-15] MEDS: Fish Oil 1,000 MG CAP PO SCH (08:42)
[2018-02-15 09:08] LABS: #Eosinphils 0.1 thou/uL (0.0-0.7); #Lymphocytes 1.1 thou/uL (1.20-3.40); #Monocytes 0.5 thou/uL (0.11-0.59); %Basophils 0.8 % (0.0-1.0); %Eosinophils 2.1 % (0.0-10.0); %Monocytes 9.7 % (0.0-10.0); %Neutrophils 63.5 % (42.0-75.0); Hemoglobin 11.9 g/dL (12.0-16.0); Mean Corpuscular HGB CONC 32.5 g/dL (32.0-36.0); Mean Corpuscular Hemoglobin 29.6 pg (27.0-31.0); Mean Corpuscular Volume 90.9 fL (78.0-98.0); Mean Platelet Volume 7.4 fL (7.4-10.4); Platelet Count 227 thou/uL (130-400); RBC Distribution Width 14.2 % (11.5-14.5); Red Blood Cell (RBC) Count 4.04 mill/uL (4.20-5.40); White Blood Cell (WBC) Count 4.7 thou/uL (4.8-10.8)
[2018-02-15 09:31] LABS: Anion Gap 12 mmol/L (10-20); BUN (Urea Nitrogen) 14 mg/dL (9.8-20.1); Calc. Creatinine Clearance 55 mL/min (70-130); Calcium 8.9 mg/dL (7.8-10.44); Carbon Dioxide 21 mmol/L (23-31); Chloride 108 mmol/L (98-107); Estimated GFR-MDRD 54; Glucose 155 mg/dL (83-110); Potassium 4.4 mmol/L (3.5-5.1); Sodium 137 mmol/L (136-145)
[2018-02-15] MEDS: HumaLOG 300 UNITS/3 ML VIAL SC PRN ×2 (12:29→19:37)
[2018-02-15] MEDS: Acetaminophen 325 MG TAB PO PRN ×2 (12:29→17:47)
[2018-02-15] MEDS: cefTRIAXone\\ROCEPHIN 1 GM in Sodium Chloride 0.9% 100 ML IVPB SCH (16:45)
--- NOTE | 2018-02-15 17:47 | PDOC.PN ---
- Subjective Encounter Start Date: 02/15/18 Encounter Start Time: 07:40 Pt seen for followup re: UTI. Denies chest pain, shortness of breath, fevers or chills. Feels well. - Objective MAR Reviewed: Yes Vital Signs & Weight: Vital Signs (12 hours) Temp Pulse Resp BP BP BP Pulse Ox 02/15/18 16:00 97.9 F 58 L 16 147/79 H 100 02/15/18 11:00 97.7 F 61 16 149/78 H 98 02/15/18 08:38 135/77 02/15/18 08:00 97.9 F 62 16 97 02/15/18 07:37 97.9 F 62 16 135/77 97 I&O: 02/14/18 02/15/18 02/16/18 06:59 06:59 06:59 Intake Total 710 1320 Balance 710 1320 Result Diagrams: 02/16/18 04:29 02/16/18 04:29 Additional Labs: Accuchecks 02/15/18 02/15/18 02/14/18 11:00 04:17 20:05 POC Glucose 298 H 157 H 278 H Labs reviewed by me Phys Exam - Physical Examination Constitutional: NAD HEENT: moist MMs Neck: supple Respiratory: clear to auscultation bilateral Cardiovascular: RRR Gastrointestinal: soft Musculoskeletal: no edema Psychiatric: normal affect Deviation from normal: Oriented to person and place, not to time Dx/Plan (1) UTI (urinary tract infection) Status: Acute Comment: on IV ceftriaxone, follow urine culture (2) Hypoglycemia Code(s): E16.2 - HYPOGLYCEMIA, UNSPECIFIED Status: Acute Comment: blood sugars creeping up, resume oral antidiabetics (3) Acute encephalopathy Code(s): G93.40 - ENCEPHALOPATHY, UNSPECIFIED Status: Acute Comment: improving (4) CAD (coronary artery disease) Code(s): I25.10 - ATHSCL HEART DISEASE OF [place] CORONARY ARTERY W/O ANG PCTRS Status: Chronic Comment: stable (5) Dementia Code(s): F03.90 - UNSPECIFIED DEMENTIA WITHOUT BEHAVIORAL DISTURBANCE Status: Chronic Comment: likely stable (6) Dyslipidemia Code(s): E78.5 - HYPERLIPIDEMIA, UNSPECIFIED Status: Chronic Comment: stable (7) Hypertension Code(s): I10 - ESSENTIAL (PRIMARY) HYPERTENSION Status: Chronic Comment: continue to monitor vital signs, titrate antihypertensives as needed - Plan * . Review of Systems - Review of Systems Cardiovascular: negative: chest pain, palpitations, orthopnea, paroxysmal nocturnal dyspnea, edema, light headedness Gastrointestinal: Other. negative: Nausea, Vomiting, Abdominal Pain, Diarrhea, Constipation, Melena, Hematochezia Genitourinary: Other. negative: Dysuria, Frequency, Incontinence, Hematuria, Retention Musculoskeletal: Other - Medications/Allergies Allergies/Adverse Reactions: Allergies Allergy/AdvReac Type Severity Reaction Status Date / Time No Known Drug Allergies Allergy Verified 02/13/18 20:58 Medications: Current Medications Acetaminophen (Tylenol) 650 mg PO Q6H PRN PRN Reason: Headache/Fever or Pain Last Admin: 02/15/18 12:29 Dose: 650 mg Atorvastatin Calcium (Lipitor) 20 mg PO HS [facility] Last Admin: 02/14/18 19:52 Dose: 20 mg Citalopram Hydrobromide (Celexa) 20 mg PO DAILY [facility] Last Admin: 02/15/18 08:36 Dose: 20 mg Clopidogrel Bisulfate (Plavix) 75 mg PO DAILY [facility] Last Admin: 02/15/18 08:36 Dose: 75 mg Dextrose/Water (Dextrose 50%) 25 gm SLOW IVP PRN PRN PRN Reason: Hypoglycemia Enoxaparin Sodium (Lovenox) 40 mg SC 0900 [facility] Last Admin: 02/15/18 08:37 Dose: 40 mg Famotidine (Pepcid) 20 mg PO HS [facility] Last Admin: 02/14/18 19:52 Dose: 20 mg Fish Oil (Fish Oil) 1,000 mg PO DAILY [facility] Last Admin: 02/15/18 08:42 Dose: 1,000 mg Gabapentin (Neurontin) 300 mg PO BID [facility] Last Admin: 02/15/18 08:38 Dose: 300 mg Glipizide (Glucotrol Xl) 10 mg PO DAILY [facility] Glucagon (Glucagon) 1 mg IM PRN PRN PRN Reason: Hypoglycemia Dextrose/Water (D5w) 1,000 mls @ 0 mls/hr IV .Q0M PRN; As Directed PRN Reason: Hypoglycemia Insulin Glargine 15 units/ (Miscellaneous Medication) 0.15 mls @ 0 mls/hr SC BID [facility] Last Admin: 02/15/18 08:38 Dose: 0.15 mls Insulin Human Lispro (Humalog) 0 units SC .MILD SLIDING SCALE PRN PRN Reason: Mild Correctional Scale Last Admin: 02/15/18 12:29 Dose: 4 unit Lisinopril (Zestril) 20 mg PO DAILY [facility] Last Admin: 02/15/18 08:38 Dose: 20 mg Memantine (Namenda) 5 mg PO BID [facility] Last Admin: 02/15/18 08:38 Dose: 5 mg Nitrofurantoin Macrocrystals (Macrobid) 100 mg PO BID [facility] Non-Formulary Medication (Canagliflozin [Invokana]) 100 mg PO HS [facility] Ondansetron HCl (Zofran) 4 mg IVP Q6H PRN PRN Reason: Nausea/Vomiting Sodium Chloride (Flush - Normal Saline) 10 ml IVF Q12HR [facility] Last Admin: 02/15/18 08:39 Dose: 10 ml Sodium Chloride (Flush - Normal Saline) 10 ml IVF PRN PRN PRN Reason: Saline Flush
[2018-02-15] MEDS: Atorvastatin Calcium 20 MG TAB PO SCH (19:35)
[2018-02-15] MEDS: Nitrofurantoin Monohyd/M-Cryst 100 MG CAP PO SCH (19:36)
[2018-02-15] MEDS: Famotidine 20 MG TAB PO SCH (19:36)
[2018-02-15] MEDS ORDERED: (Canagliflozin [Invokana] 100 MG) PO SCH (21:00)
[2018-02-16 04:55] LABS: #Eosinphils 0.1 thou/uL (0.0-0.7); #Lymphocytes 1.9 thou/uL (1.20-3.40); #Monocytes 0.5 thou/uL (0.11-0.59); #Neutrophils 2.6 thou/uL (1.40-6.50); %Basophils 0.7 % (0.0-1.0); %Eosinophils 2.5 % (0.0-10.0); %Lymphocytes 36.5 % (21.0-51.0); %Monocytes 10.1 % (0.0-10.0); %Neutrophils 50.1 % (42.0-75.0); Hemoglobin 10.9 g/dL (12.0-16.0); Mean Corpuscular HGB CONC 32.9 g/dL (32.0-36.0); Mean Corpuscular Hemoglobin 29.8 pg (27.0-31.0); Mean Corpuscular Volume 90.5 fL (78.0-98.0); Mean Platelet Volume 7.5 fL (7.4-10.4); Platelet Count 204 thou/uL (130-400); RBC Distribution Width 14.2 % (11.5-14.5); Red Blood Cell (RBC) Count 3.67 mill/uL (4.20-5.40); White Blood Cell (WBC) Count 5.2 thou/uL (4.8-10.8)
[2018-02-16 05:17] LABS: Anion Gap 12 mmol/L (10-20); BUN (Urea Nitrogen) 19 mg/dL (9.8-20.1); Calc. Creatinine Clearance 69 mL/min (70-130); Calcium 8.7 mg/dL (7.8-10.44); Carbon Dioxide 22 mmol/L (23-31); Chloride 111 mmol/L (98-107); Estimated GFR-MDRD 70; Glucose 80 mg/dL (83-110); Sodium 141 mmol/L (136-145)
[2018-02-16 07:30] VITALS: BP 151/73; TEMP 96.1
[2018-02-16] MEDS: Gabapentin 300 MG CAP PO SCH (07:55)
[2018-02-16] MEDS: Citalopram 20 MG TAB PO SCH (07:55)
[2018-02-16] MEDS: Clopidogrel Bisulfate 75 MG TAB PO SCH (07:55)
[2018-02-16] MEDS: Lisinopril 20 MG TAB PO SCH (07:55)
[2018-02-16] MEDS: Nitrofurantoin Monohyd/M-Cryst 100 MG CAP PO SCH (07:56)
[2018-02-16] MEDS: Enoxaparin Sodium 40 MG/0.4 ML SYRINGE SC SCH (07:57)
[2018-02-16] MEDS: Fish Oil 1,000 MG CAP PO SCH (07:57)
[2018-02-16] MEDS: Insulin Glargine 15 UNITS in Pre-Filled Syringe 1 EACH SC SCH (08:02)
--- NOTE | 2018-02-16 10:55 | DIS ---
DATE OF ADMISSION: 02/14/2018 DATE OF DISCHARGE: 02/16/2018 PRIMARY CARE PROVIDER: Dr. Tarah Beckwith. DISCHARGE DIAGNOSES: 1. Urinary tract infection. 2. Hypoglycemia. 3. Acute encephalopathy. CONDITION OF PATIENT ON THE DAY OF DISCHARGE: Stable. I assessed Ms. Reynaga on the day of dischar . She denies any chest pain or shortness of breath. Vital signs are stable. S1 and S2 are heard, regular. Lungs are clear to auscultation bilaterally. DISCHARGE MEDICATIONS: Levemir dose has been decreased to 15 units twice daily, Invokana 100 mg at b edtime, Celexa 20 mg daily, Plavix 75 mg daily, Pepcid 20 mg at bedtime, gabapentin 300 mg 2 times a day, glipizide 10 mg daily, lisinopril 20 mg daily, memantine 5 mg 2 times a day, metformin 1000 mg i n the morning, Macrobid 100 mg 2 times a day for 4 more days, fish oil 1000 mg daily, Simvastatin 40 mg at bedtime. HOSPITAL COURSE: Ms. Reynaga is a pleasant 72-year-old lady who was admitted to [facility] on 02/13/2018 for acute encephalopathy, most likely secondary to hypoglycemia in the c ontext of urinary tract infection. Please refer to Dr. Alfaro's history and physical dated for further information. She was treated with intravenous antibiotics. Her Levemir dose was dec reased to 15 units twice daily. Her blood sugars started trending up. Her oral antidiabetic agents were resumed, and blood sugar started trending down on the day of discharge. Final urine cultures showed mixed growth of skin and enteric cynthia. She is being discharged home on Macrobid to complete course. On the day of discharge, she has a white count of 5200, hemoglobin 10.9, platelet count 204,000, norm al sodium, normal potassium, creatinine 0.80, and calcium 8.7. Many thanks for allowing me to participate in your patient's care. Please feel free to contact me wi th any questions or concerns. DISCHARGE DESTINATION: [place], from where patient was admitted to the hospital. TOTAL AMOUNT OF TIME SPENT COORDINATING THIS DISCHARGE: 32 minutes.
[2018-02-16] MEDS: Acetaminophen 325 MG TAB PO PRN (11:33)
== END 2018-02-16 12:11 | disposition home or self-care (01) | DRG 689 ==
LOC: ERS 16:43 → 2SW 19:27 → OBSVTOIN 02-14 17:14 → T4-B 02-14 19:13
PROVIDERS: ADMIT Hospitalist; ATTEND Hospitalist
DX: N39.0 Urinary tract infection, site not specified (principal); G93.41 Metabolic encephalopathy; E11.65 Type 2 diabetes mellitus with hyperglycemia; E11.649 Type 2 diabetes mellitus with hypoglycemia without coma; I10 Essential (primary) hypertension; S00.93XA Contusion of unspecified part of head, initial encounter; W19.XXXA Unspecified fall, initial encounter; I25.10 Atherosclerotic heart disease of native coronary artery without angina pectoris; E78.5 Hyperlipidemia, unspecified; F03.90 Unspecified dementia, unspecified severity, without behavioral disturbance, psychotic disturbance, mood disturbance, and anxiety; Z95.5 Presence of coronary angioplasty implant and graft
CPT/HCPCS: 36415; 36416; 70450; 71045; 72125; 80048; 80053; 81003; 81015; 82550; 82553; 83690; 84443; 84484; 85025; 87086; 93005; 94760; 96365; 96374; 96375; A4216; J0696; J1650; J7050

== ENCOUNTER 2018-04-07 13:05 | Outpatient (CLI) | payer MEDICARE, MEDICAID | END 2018-04-07 13:06 | disposition home or self-care (01) | LOC: BICMAMMO 13:05 | PROVIDERS: ATTEND Family Medicine | DX: Z12.31 Encounter for screening mammogram for malignant neoplasm of breast (principal); R92.1 Mammographic calcification found on diagnostic imaging of breast | CPT/HCPCS: 77063; 77067 ==

== ENCOUNTER 2018-05-09 09:36 | Emergency (ER) | payer MEDICARE, MEDICAID ==
[2018-05-09] MEDS ORDERED: Acetaminophen 500 MG TAB ONE (10:23)
[2018-05-09 10:26] LABS: #Basophils 0.1 thou/uL (0.0-0.2); #Eosinphils 0.1 thou/uL (0.0-0.7); #Lymphocytes 1.3 thou/uL (1.20-3.40); #Monocytes 0.5 thou/uL (0.11-0.59); #Neutrophils 3.2 thou/uL (1.40-6.50); %Basophils 1.3 % (0.0-1.0); %Lymphocytes 25.6 % (21.0-51.0); %Monocytes 9.9 % (0.0-10.0); %Neutrophils 61.3 % (42.0-75.0); Hemoglobin 12.5 g/dL (12.0-16.0); Mean Corpuscular HGB CONC 31.6 g/dL (32.0-36.0); Mean Corpuscular Hemoglobin 29.2 pg (27.0-31.0); Mean Corpuscular Volume 92.5 fL (78.0-98.0); Mean Platelet Volume 8.1 fL (7.4-10.4); Platelet Count 229 thou/uL (130-400); RBC Distribution Width 14.1 % (11.5-14.5); Red Blood Cell (RBC) Count 4.26 mill/uL (4.20-5.40); White Blood Cell (WBC) Count 5.2 thou/uL (4.8-10.8)
[2018-05-09 10:46] LABS: ALT (SGPT) 10 U/L (8-55); AST (SGOT) 15 U/L (5-34); Alkaline Phosphatase 61 U/L (40-150); Anion Gap 12 mmol/L (10-20); BUN (Urea Nitrogen) 18 mg/dL (9.8-20.1); Bilirubin, Total 0.4 mg/dL (0.2-1.2); Calc. Creatinine Clearance 0 mL/min (70-130); Calcium 9.2 mg/dL (7.8-10.44); Carbon Dioxide 24 mmol/L (23-31); Chloride 105 mmol/L (98-107); Estimated GFR-MDRD 51; Globulin 2.9 g/dL (2.4-3.5); Glucose 176 mg/dL (83-110); Potassium 4.5 mmol/L (3.5-5.1); Protein, Total 6.9 g/dL (6.0-8.3); Sodium 136 mmol/L (136-145)
[2018-05-09 10:51] LABS: CKMB 2.9 ng/mL (0-6.6); Troponin I Less than 0.010 ng/mL (< 0.028)
--- NOTE | 2018-05-09 11:20 | RAD ---
AP PELVIS: Date: 05/09/18 HISTORY: Trauma. FINDINGS/IMPRESSION: The bony pelvis appears intact. Mild degenerative changes at both hips. There is linear lucency seen in the intertrochanteric region of the proximal right femur. This may be artifactual, however. If there is concern of right hip injury, recommend dedicated right hip views. POS: [facility]
--- NOTE | 2018-05-09 11:21 | RAD ---
SACRUM AND COCCYX 3 VIEWS: Date: 05/09/18 HISTORY: Fall with injury to tailbone. FINDINGS: Angulation at the sacrococcyx junction is probably anatomic. No definite fracture identified. Degener ative changes at the lumbosacral region. IMPRESSION: No definite fracture identified. POS: [facility]
--- NOTE | 2018-05-09 11:53 | RAD ---
RIGHT HIP 2 VIEWS: Date: 05/09/18 HISTORY: Trauma with injury and pain. FINDINGS: There are mild degenerative changes at the hip. Femoral head contour is preserved. No acute fracture identified. IMPRESSION: No evidence of acute fracture. POS: [facility]
[2018-05-09] MEDS ORDERED: traMADol HCl 50 MG TAB ONE (12:57)
== END 2018-05-09 13:10 | disposition home or self-care (01) ==
LOC: ERS 09:36
DX: M53.3 Sacrococcygeal disorders, not elsewhere classified (principal); E11.9 Type 2 diabetes mellitus without complications; I10 Essential (primary) hypertension; F32.9 Major depressive disorder, single episode, unspecified; F41.9 Anxiety disorder, unspecified; W19.XXXA Unspecified fall, initial encounter
CPT/HCPCS: 36415; 72170; 72220; 80053; 82553; 84484; 85025; 93005

== ENCOUNTER 2018-06-21 13:30 | Emergency (ER) | payer MEDICARE, MEDICAID ==
[2018-06-21 14:17] LABS: #Eosinphils 0.2 thou/uL (0.0-0.7); #Lymphocytes 1.6 thou/uL (1.20-3.40); #Monocytes 0.5 thou/uL (0.11-0.59); #Neutrophils 4.3 thou/uL (1.40-6.50); %Basophils 0.6 % (0.0-1.0); %Eosinophils 2.4 % (0.0-10.0); %Lymphocytes 23.8 % (21.0-51.0); %Monocytes 8.2 % (0.0-10.0); %Neutrophils 65.1 % (42.0-75.0); Hemoglobin 11.3 g/dL (12.0-16.0); Mean Corpuscular HGB CONC 30.9 g/dL (32.0-36.0); Mean Corpuscular Hemoglobin 28.1 pg (27.0-31.0); Mean Platelet Volume 8.3 fL (7.4-10.4); Platelet Count 220 thou/uL (130-400); RBC Distribution Width 13.5 % (11.5-14.5); Red Blood Cell (RBC) Count 4.01 mill/uL (4.20-5.40); White Blood Cell (WBC) Count 6.6 thou/uL (4.8-10.8)
[2018-06-21 14:38] LABS: Bilirubin Negative (Negative); Blood, Urine Negative (Negative); Clarity CLEAR (Clear); Glucose, Urine (Dipstick) >=1000 mg/dL (Negative); Leukocyte Negative (Negative); Nitrite Negative (Negative); Protein, Urine (Dipstick) Negative (Neg-Trace); Specific Gravity, Urine 1.014 (1.002-1.036); Urobilinogen 0.2 mg/dL (0.2-1.0)
[2018-06-21 14:38] LABS: ALT (SGPT) 8 U/L (8-55); AST (SGOT) 13 U/L (5-34); Albumin 3.9 g/dL (3.4-4.8); Alkaline Phosphatase 62 U/L (40-150); Anion Gap 16 mmol/L (10-20); BUN (Urea Nitrogen) 21 mg/dL (9.8-20.1); Bilirubin, Total 0.3 mg/dL (0.2-1.2); CK (CPK) 78 U/L (29-168); Calc. Creatinine Clearance 0 mL/min (70-130); Calcium 8.8 mg/dL (7.8-10.44); Carbon Dioxide 20 mmol/L (23-31); Chloride 106 mmol/L (98-107); Estimated GFR-MDRD 47; Globulin 2.6 g/dL (2.4-3.5); Glucose 204 mg/dL (83-110); Potassium 4.5 mmol/L (3.5-5.1); Protein, Total 6.5 g/dL (6.0-8.3); Sodium 137 mmol/L (136-145)
--- NOTE | 2018-06-21 15:01 | CT ---
HEAD CT WITHOUT CONTRAST: 06/21/2018 HISTORY: Fall. Headache and neck pain. COMPARISON: 02/13/2018 TECHNIQUE: Axial CT imaging at 5 mm intervals, from the vertex through the skull base, without contrast. FINDINGS: The visualized paranasal sinuses and mastoid air cells are well aerated. No displaced calvarial fracture noted. There is no intracranial hemorrhage, midline shift, mass effect, or ventricular enlargement. There is atherosclerotic calcification of the distal vertebral arteries bilaterally. Remote lacunar infarction noted in the periventricular white matter, adjacent to the left lateral eric tricle, unchanged. Small scalp nodule noted near the vertex, on the right, measuring 9 mm, unchanged as well. IMPRESSION: Stable head CT-No acute findings. POS: [facility]
--- NOTE | 2018-06-21 15:03 | CT ---
CT LUMBAR SPINE WITHOUT CONTRAST: FINDINGS: There is no acute fracture or malalignment of the lumbar spine. Degenerative changes have only mildl y progressed from the 2016 examination, with bilateral neural foraminal narrowing from L3 to S1, as w ell as spinal canal narrowing, which would be best evaluated with an MRI or a myelogram examination. There is narrowing of the L4-L5 spinous process interspace. Moderate facet arthropathy of the lower lumbar spine. No dilated loops of bowel in the pelvis. The sacrum is intact. The SI joints are intact. Lumbar spine transverse processes are intact. IMPRESSION: Degenerative changes. No acute fracture or malalignment. POS: [facility]
--- NOTE | 2018-06-21 15:05 | RAD ---
CHEST ONE VIEW: HISTORY: Fall. Chest pain. COMPARISON: Radiograph from 02/13/2018. FINDINGS: Chronic increased interstitial markings in the lung bases. No focal air space consolidation, pneumot horax, or effusion. The cardiac silhouette and mediastinal contours are similar. IMPRESSION: No acute intrathoracic abnormality. POS: [facility]
--- NOTE | 2018-06-21 15:17 | CT ---
CT CERVICAL SPINE: 06/21/2018 HISTORY: Headache. Neck pain. Back pain. Fall. COMPARISON: 02/11/2018 TECHNIQUE: Axial CT imaging at 2.5 mm intervals, from the skull base through the lung apices, without contrast. Coronal and sagittal reformatted imaging obtained. FINDINGS: The imaged lung apices demonstrate a stable, incompletely imaged area of nodular thickening of the pl eura, in the left lung apex, nonspecific. There is atherosclerotic calcification of the distal vertebral arteries bilaterally, as well as the d istal left calcification and the proximal left ICA. The occipital condyles, the dens, and the C1-C2 articulation demonstrate no acute findings. There is multilevel bilateral facet and uncovertebral osteophyte formation, most prominent on the lef t at C3-C4 and on the right at C5-C6. There is a nonspecific stable lytic lesion within the C5 vertebral body, unchanged when compared to p rior imaging. There is moderate degenerative change at the atlantoaxial interspace. The craniocervical and cervico thoracic junctions appear intact. There is disk bulge with posterior calcification and associated central canal stenosis, at C4-C5, not well characterized on this examination and stable. Probable disk bulge noted at C5-C6 as well. No acute osseous abnormality. No acute fracture or dislocation. IMPRESSION: 1. Stable cervical spine CT, as detailed above. 2. Lucent lesion noted in the C5 vertebral body may represent atypical hemangioma. Non-emergent fol low-up cervical spine MRI is suggested to better evaluate this lesion, as well as the degree of degen erative change within the cervical spine. No acute fracture is evident. 3. Stable, irregular, incompletely imaged density in the left lung apex likely represents scar but u nderlying pulmonary parenchymal mass cannot be excluded. Recommend dedicated CT examination of the c hest. CODE T POS: [facility]
--- NOTE | 2018-06-23 15:11 | EKG ---
Test Reason : Blood Pressure : / mmHG Vent. Rate : 070 BPM Atrial Rate : 070 BPM P-R Int : 162 ms QRS Dur : 132 ms QT Int : 428 ms P-R-T Axes : 056 074 030 degrees QTc Int : 462 ms Normal sinus rhythm Right bundle branch block Abnormal ECG Confirmed by AMARILIS CHAUHAN ([id number]), web content editor DAVID MATHEWS ([id number]) on 06/23/2018 3:11:03 PM Referred By: Confirmed By:AMARILIS CHAUHAN
== END 2018-06-21 15:59 | disposition home or self-care (01) ==
LOC: ERS 13:30
DX: S09.90XA Unspecified injury of head, initial encounter (principal); S16.1XXA Strain of muscle, fascia and tendon at neck level, initial encounter; F41.9 Anxiety disorder, unspecified; F32.9 Major depressive disorder, single episode, unspecified; I10 Essential (primary) hypertension; E11.9 Type 2 diabetes mellitus without complications; W18.30XA Fall on same level, unspecified, initial encounter
CPT/HCPCS: 36415; 70450; 71045; 72125; 72131; 80053; 81003; 82550; 84484; 85025; 87086; 93005

== ENCOUNTER 2018-08-14 08:21 | Emergency (ER) | payer MEDICARE, OTHER ==
[2018-08-14 09:25] LABS: #Basophils 0.1 thou/uL (0.0-0.2); #Lymphocytes 0.4 thou/uL (1.20-3.40); #Monocytes 0.7 thou/uL (0.11-0.59); #Neutrophils 4.7 thou/uL (1.40-6.50); %Basophils 1.4 % (0.0-1.0); %Eosinophils 0.2 % (0.0-10.0); %Monocytes 11.5 % (0.0-10.0); %Neutrophils 79.9 % (42.0-75.0); Hemoglobin 12.3 g/dL (12.0-16.0); Mean Corpuscular HGB CONC 32.3 g/dL (32.0-36.0); Mean Corpuscular Hemoglobin 29.2 pg (27.0-31.0); Mean Corpuscular Volume 90.3 fL (78.0-98.0); Mean Platelet Volume 8.2 fL (7.4-10.4); Platelet Count 200 thou/uL (130-400); RBC Distribution Width 13.5 % (11.5-14.5); Red Blood Cell (RBC) Count 4.22 mill/uL (4.20-5.40); White Blood Cell (WBC) Count 5.9 thou/uL (4.8-10.8)
[2018-08-14] MEDS ORDERED: Acetaminophen 500 MG TAB ONE (09:37)
[2018-08-14 09:50] LABS: ALT (SGPT) 12 U/L (8-55); AST (SGOT) 20 U/L (5-34); Albumin 4.6 g/dL (3.4-4.8); Alkaline Phosphatase 73 U/L (40-150); Anion Gap 19 mmol/L (10-20); BUN (Urea Nitrogen) 16 mg/dL (9.8-20.1); Bilirubin, Total 0.4 mg/dL (0.2-1.2); CK (CPK) 169 U/L (29-168); Calc. Creatinine Clearance 0 mL/min (70-130); Calcium 9.3 mg/dL (7.8-10.44); Carbon Dioxide 20 mmol/L (23-31); Chloride 102 mmol/L (98-107); Estimated GFR-MDRD 53; Globulin 2.8 g/dL (2.4-3.5); Glucose 185 mg/dL (83-110); Potassium 4.6 mmol/L (3.5-5.1); Protein, Total 7.4 g/dL (6.0-8.3); Sodium 136 mmol/L (136-145)
--- NOTE | 2018-08-14 10:41 | CT ---
CT OF THE BRAIN WITHOUT CONTRAST: Date: 08/14/18 INDICATION: History of fall. COMPARISON: Prior exam dated 06/21/18. FINDINGS: Small lacunar infarct involving the left pathak radiata is stable. Mild chronic small vessel white ma tter ischemic change is stable. Mild generalized cerebral and cerebellar atrophy is stable. No acute infarct, hemorrhage, or hydrocephalus is present. Paranasal sinuses and mastoid air cells are clear. IMPRESSION: No acute intracranial abnormality. POS: [facility]
--- NOTE | 2018-08-14 10:45 | CT ---
CT OF CERVICAL SPINE PERFORMED WITHOUT CONTRAST ENHANCEMENT: Date: 08/14/18 HISTORY: Patient fell, neck pain. COMPARISON: 06/21/18 study. FINDINGS: The vertebral bodies maintain normal height. There is stable appearance to the lucent lesion involvin g C5, most likely hemangioma. Degenerative disc narrowing is seen at C3-4 and C5-6 with lesser change s of C4-5. There are also degenerative facet changes present. The facets are in normal alignment. At the C3-4 level, there is some mild left-sided foraminal narrowing. There is right-sided foraminal hao rowing at C4-5 and some mild canal narrowing at this level. There also appears to be mild right-sided foraminal narrowing at C5-6. There is no CT evidence of fracture. Stable irregular pleural based nod ular density in the left upper lobe is incompletely visualized on this examination, most likely repre senting scar. CT of the chest would be suggested for full characterization. IMPRESSION: No CT evidence of fracture. Stable overall examination. POS: [facility]
--- NOTE | 2018-08-14 10:46 | RAD ---
LUMBAR SPINE SERIES 2 VIEWS: Date: 08/14/18 HISTORY: Patient tripped and fell at home. FINDINGS: Bones are demineralized. Vertebral bodies are normal in height. No compression fractures. Disc spaces are well preserved. Pedicles are intact. Minimal osteophytic changes are seen. There are vascular ca lcifications present. IMPRESSION: No acute injury. POS: [facility]
--- NOTE | 2018-08-14 10:49 | RAD ---
THORACIC SPINE SERIES 3 VIEWS: Date: 08/14/18 HISTORY: Patient tripped and fell at home. FINDINGS: The thoracic vertebral bodies are normal in height with the exception of some minimal compression isai nges involving the superior end plate of what appears to be T11. Age of this is indeterminate. Pedicl es are intact. IMPRESSION: Age-indeterminate compression changes superior end plate of what is felt to be T11. POS: [facility]
[2018-08-14 11:07] LABS: Bilirubin Negative (Negative); Blood, Urine Trace (Negative); Clarity CLEAR (Clear); Glucose, Urine (Dipstick) >=1000 mg/dL (Negative); Leukocyte Negative (Negative); Nitrite Negative (Negative); Protein, Urine (Dipstick) Trace mg/dL (Neg-Trace); Specific Gravity, Urine 1.034 (1.002-1.036); Urobilinogen 0.2 mg/dL (0.2-1.0); pH, Urine 5.5 (5.0-9.0)
[2018-08-14 11:18] LABS: Bacteria/HPF Rare-Few HPF (None Seen); Hyaline Casts/LPF NONE SEEN LPF (0-3 Hyaline); RBC/HPF None Seen HPF (0-3); Squamous Epithelial 0-3 HPF (0-3); WBC/HPF None Seen HPF (0-3)
== END 2018-08-14 15:25 ==
LOC: ERS 08:21
DX: M54.2 Cervicalgia (principal); M54.9 Dorsalgia, unspecified; W01.0XXA Fall on same level from slipping, tripping and stumbling without subsequent striking against object, initial encounter
CPT/HCPCS: 36415; 70450; 72072; 72100; 72125; 80053; 81003; 81015; 82550; 84484; 85025; 87086; 93005; A4353

== ENCOUNTER 2018-08-16 12:51 | Inpatient (IN) | payer MEDICARE, MEDICAID ==
[2018-08-16 13:53] LABS: #Lymphocytes 0.8 thou/uL (1.20-3.40); #Monocytes 0.6 thou/uL (0.11-0.59); #Neutrophils 2.6 thou/uL (1.40-6.50); %Basophils 0.1 % (0.0-1.0); %Eosinophils 0.3 % (0.0-10.0); %Lymphocytes 19.1 % (21.0-51.0); %Monocytes 14.2 % (0.0-10.0); %Neutrophils 66.3 % (42.0-75.0); Hemoglobin 12.9 g/dL (12.0-16.0); Mean Corpuscular HGB CONC 32.1 g/dL (32.0-36.0); Mean Corpuscular Hemoglobin 29.3 pg (27.0-31.0); Mean Corpuscular Volume 91.1 fL (78.0-98.0); Mean Platelet Volume 8.5 fL (7.4-10.4); Platelet Count 208 thou/uL (130-400); RBC Distribution Width 13.7 % (11.5-14.5); Red Blood Cell (RBC) Count 4.43 mill/uL (4.20-5.40); White Blood Cell (WBC) Count 3.9 thou/uL (4.8-10.8)
--- NOTE | 2018-08-16 13:57 | RAD ---
TWO VIEW CHEST: Comparison: 06-21-18 History: Syncope, abdominal pain, feeling sick. FINDINGS: Stent material overlies the cardiac silhouette. No pneumothorax or pleural fluid is seen. There is no focal consolidation or alveolar edema. IMPRESSION: No focal consolidation or alveolar edema. POS: [facility]
[2018-08-16 14:18] LABS: ALT (SGPT) 17 U/L (8-55); AST (SGOT) 27 U/L (5-34); Albumin 4.4 g/dL (3.4-4.8); Alkaline Phosphatase 61 U/L (40-150); Anion Gap 18 mmol/L (10-20); BUN (Urea Nitrogen) 30 mg/dL (9.8-20.1); Bilirubin, Total 0.4 mg/dL (0.2-1.2); Calc. Creatinine Clearance 0 mL/min (70-130); Calcium 9.1 mg/dL (7.8-10.44); Carbon Dioxide 21 mmol/L (23-31); Chloride 97 mmol/L (98-107); Estimated GFR-MDRD 34; Globulin 3.2 g/dL (2.4-3.5); Glucose 387 mg/dL (83-110); Potassium 3.8 mmol/L (3.5-5.1); Protein, Total 7.6 g/dL (6.0-8.3); Sodium 132 mmol/L (136-145)
--- NOTE | 2018-08-16 14:28 | CT ---
HEAD CT WITHOUT CONTRAST: Date: 08/16/18 HISTORY: Head injury. Syncope. COMPARISON: None. FINDINGS: No parenchymal hemorrhage. No extra-axial hematoma. No midline shift. Basilar cisterns are patent. Br ain volume, age-appropriate. Cortical cruz-white matter differentiation preserved. Ventricles and sul ci are patent and symmetric. White matter hypodensities are noted. Remote lacunar infarct in the left pathak radiata. Calvarium is intact. Adequate aeration of the sinuses and mastoid air cells. Stable hypodensity in the right frontal scalp, near the vertex. IMPRESSION: No acute intracranial process. POS: [facility]
--- NOTE | 2018-08-16 14:28 | CT ---
CT CERVICAL SPINE NONCONTRAST: DATE: 08/16/2018. TIME: 1:57 p.m. HISTORY: A 73-year-old female status post cervical injury from fall. FINDINGS: There are no jumped or perched facets. There is no evidence of acute fracture. The vertebral body h eights are maintained. There is no prevertebral soft tissue swelling. There is a large hemangioma o f bone at the C5 vertebral body. No high-grade degenerative facet changes at any level. There are d isk protrusions that encroach upon the spinal canal at several levels, causing central spinal canal s tenosis. There are moderate-sized and large uncinate process osteophytes that cause neural foraminal stenosis of varying degrees at several levels. IMPRESSION: No evidence of acute fracture or acute traumatic subluxation. jn [] POS: [facility]
--- NOTE | 2018-08-16 14:40 | CT ---
CT ABDOMEN WITH CONTRAST CT PELVIS WITH CONTRAST: Date: 08/16/18 COMPARISON: 02/04/18. HISTORY: Right-sided abdominal pain. COMPARISON: None. FINDINGS: CT ABDOMEN: Redemonstration of significant atherosclerosis of the left coronary artery. Heart size is within norm al limits. Additional areas of coronary calcification are noted. Visualized aorta has a normal calibe r. No periaortic fat stranding. Atherosclerosis is identified. Contracted gallbladder likely due to nonfasting state. Liver, spleen, pancreas, and adrenal glands have appropriate enhancement. Portal vein is patent. No gastrohepatic, retrocrural, or periportal lymphadenopathy. No mesenteric mass, lymphadenopathy, free air, or free fluid. Symmetric enhancement of the kidneys. Bilaterally, no obstructive uropathy. No mesenteric mass, lymphadenopathy, free air, or free fluid. Limited evaluation of the alimentary canal by lack of oral contrast. Gastric mucosa is unremarkable. Multiple normal caliber small bowel loops. Ileocecal junction is normal. Appendix is not appreciated. Nevertheless, no inflammation of the cecal apex. Colon is decompressed. No evidence of inflammatory change. CT PELVIS: No mass, lymphadenopathy, free air, or free fluid. Unremarkable urinary bladder. Hysterectomy changes are noted. No lytic or blastic lesions in the osseous structures. IMPRESSION: No acute abnormality in the abdomen or pelvis. POS: [facility]
[2018-08-16] MEDS ORDERED: Morphine 4 MG/ML VIAL ONE (15:13)
[2018-08-16] MEDS ORDERED: Ondansetron PF 4 MG/2 ML Vial ONE (15:13)
[2018-08-16] MEDS ORDERED: Acetaminophen 500 MG TAB ONE (16:07)
[2018-08-16 16:49] LABS: Bilirubin Negative (Negative); Blood, Urine Negative (Negative); Clarity CLEAR (Clear); Glucose, Urine (Dipstick) >=1000 mg/dL (Negative); Leukocyte Negative (Negative); Nitrite Negative (Negative); Protein, Urine (Dipstick) Negative (Neg-Trace); Urobilinogen 0.2 mg/dL (0.2-1.0)
[2018-08-16 16:52] LABS: Specific Gravity, Urine 1.052 (1.002-1.036)
[2018-08-16 16:53] LABS: Base Excess-Venous -4.2 mmol/L (0 (+/- 2.5)); Bicarbonate (HCO3v) 22.3 mmol/L (22.0-29.0); CO2 Tension (PvCO2) 45.4 mmHg (41.0-51.0); Calcium, Ionized 1.05 mmol/L (1.12-1.32); Hemoglobin - Calc 12.6 g/dL (12.0-18.0); O2 Tension (PvO2) 38.6 mmHg (35.0-45.0); T. Carbon Dioxide 23.7 mmol/L (1.0-85.0); pH (Venous) 7.298 (7.35-7.45); vO2 Saturation-calc 66.8 % (94-98)
[2018-08-16] MEDS ORDERED: ISOVUE-370 76%-LOCM 1 ML ONE (17:01)
[2018-08-16] MEDS ORDERED: HUMULIN R 100 UNITS in Sodium Chloride 0.9% 99 ML IVPB SCH (17:30)
[2018-08-16 21:03] LABS: Base Excess-Venous -3.6 mmol/L (0 (+/- 2.5)); Bicarbonate (HCO3v) 23.1 mmol/L (22.0-29.0); CO2 Tension (PvCO2) 48.1 mmHg (41.0-51.0); Calcium, Ionized 1.14 mmol/L (1.12-1.32); Hemoglobin - Calc 10.9 g/dL (12.0-18.0); O2 Tension (PvO2) 64.8 mmHg (35.0-45.0); Potassium 3.7 mmol/L (3.4-4.7); T. Carbon Dioxide 24.6 mmol/L (1.0-85.0); vO2 Saturation-calc 89.6 % (94-98)
[2018-08-16] MEDS ORDERED: HUMULIN R 100 UNITS in Sodium Chloride 0.9% 100 ML IVPB SCH (21:15)
[2018-08-16] MEDS ORDERED: CCU Electrolyte Replacement 1 EACH IVPB SCH (21:15)
[2018-08-16] MEDS ORDERED: Sodium Chloride 0.9% 1,000 ML IV PRN ×4 (21:15)
[2018-08-16] MEDS ORDERED: NS 0.9% w/ 20 MEQ KCL 1,000 ML IV PRN ×2 (21:15)
[2018-08-16] MEDS ORDERED: D5 1/2 NS w/20 mEq KCL 1,000 ML IV PRN (21:15)
[2018-08-16] MEDS ORDERED: Dextrose 5 %-0.45 % NaCl 1,000 ML IV PRN (21:15)
[2018-08-16] MEDS ORDERED: Potassium Phosphate 15 MMOL in Sodium Chloride 0.9% 250 ML 250 ML IV PRN (21:48)
[2018-08-16] MEDS ORDERED: Potassium Phosphate 9 MMOL in Sodium Chloride 0.9% 100 ML IVPB PRN (21:48)
[2018-08-16] MEDS ORDERED: CCU ELECTROLYTE REPLACEMENT PROTOCOL FS PRN (21:48)
[2018-08-16] MEDS ORDERED: Potassium Chloride 40 MEQ in Premix Bag 1 BAG IVPB PRN (21:48)
[2018-08-16] MEDS ORDERED: Magnesium Oxide 400 MG TAB PO PRN ×2 (21:48)
[2018-08-16] MEDS ORDERED: Magnesium 2 GM/NS 0.9% 100 ML 2 GM in Premix Bag 1 BAG IVPB PRN (21:48)
[2018-08-16] MEDS ORDERED: Potassium Phosphate 12 MMOL in Sodium Chloride 0.9% 250 ML 250 ML IV PRN (21:48)
[2018-08-16] MEDS ORDERED: Potassium Chloride 20 MEQ TAB PO PRN (21:48)
[2018-08-16] MEDS ORDERED: Potassium Chloride 40 MEQ in Sodium Chloride 0.9% 250 ML 250 ML IVPB PRN (21:48)
[2018-08-16 21:55] LABS: Anion Gap 12 mmol/L (10-20); BUN (Urea Nitrogen) 23 mg/dL (9.8-20.1); Calc. Creatinine Clearance 0 mL/min (70-130); Carbon Dioxide 19 mmol/L (23-31); Chloride 108 mmol/L (98-107); Estimated GFR-MDRD 65; Glucose 99 mg/dL (83-110); Potassium 3.8 mmol/L (3.5-5.1); Sodium 135 mmol/L (136-145)
[2018-08-17 01:51] LABS: Anion Gap 12 mmol/L (10-20); BUN (Urea Nitrogen) 22 mg/dL (9.8-20.1); Calc. Creatinine Clearance 0 mL/min (70-130); Carbon Dioxide 20 mmol/L (23-31); Chloride 109 mmol/L (98-107); Estimated GFR-MDRD 68; Glucose 103 mg/dL (83-110); Potassium 3.5 mmol/L (3.5-5.1); Sodium 137 mmol/L (136-145)
--- NOTE | 2018-08-17 02:38 | HP ---
PRIMARY CARE DOCTOR: Dr. Tarah Beckwith. CODE STATUS: Full code. TIME OF EVALUATION: 8:00 p.m. CHIEF COMPLAINT: Syncope. HISTORY OF PRESENT ILLNESS: This is a 73-year-old female patient, with past medical history of diabetes, hypertension, dementia, peptic ulcer, neuropathy, came to the hospital after having an episode of syncope, when the patient went to the bathroom. No clear triggers, no alleviating factors, the patient does not recall what happened. Symptoms were severe, generalized, sudden onset. The patient found to have some metabolic derangement, early DKA, and was started on DKA protocol in the ER. REVIEW OF SYSTEMS: CONSTITUTIONAL: No fever or chills, with generalized weakness. RESPIRATORY: No cough, sputum production, or shortness of breath. CARDIOVASCULAR: No chest pain or palpitation. GASTROINTESTINAL: No nausea, no vomiting, diarrhea, or abdominal pain. SUPERSONIC ENGINEER: The patient had an episode of syncope. No dizziness, headache, or feeling lightheaded. GENITOURINARY: No burning on urination. EXTREMITIES: No leg swelling. All other systems were reviewed and negative except for the findings mentioned above. PAST MEDICAL HISTORY: Mentioned in the HPI. SURGICAL HISTORY: CABG, hysterectomy. PSYCH HISTORY: Depression. SOCIAL HISTORY: No alcohol use. No drug use. No smoking history. FAMILY HISTORY: Reviewed, noncontributory to current presentation. KNOWN ALLERGIES: No known drug allergies. REPORTED MEDICATIONS: Not updated. PHYSICAL EXAMINATION: VITAL SIGNS: On presentation, blood pressure 131/69 with heart rate 77, respiratory rate was 18, temperature 98, pain was 9/10, oxygen saturation was 93 on room air. GENERAL APPEARANCE: The patient is alert, oriented, not in acute distress, reported the patient is having generalized weakness. HEENT: Eyes, normal conjunctivae. Moist oral mucosa. Anicteric. No JVD. RESPIRATORY: Bilateral air entry. No rales. No wheezing. Symmetric expansion. CARDIOVASCULAR: Normal rate, regular rhythm. No murmurs, no gallops. No edema. ABDOMEN: Soft, normal bowel sounds. MUSCULOSKELETAL: Baseline range of motion and strength. No tenderness. SKIN: Warm, intact. No pallor. No rash. No redness. Peripheral pulses are present. Capillary refill seems to be intact. NEUROLOGIC: No evidence of any new focal weakness. Baseline speech. Cranial nerves seems to be intact. PSYCHIATRIC: The patient is in good mood. No anxiety. Optimal judgment. DIAGNOSTIC DATA: EKG was reviewed. The patient had normal sinus rhythm with RBBB at the rate of 73, LA 162, QRS 118, QT corrected 458. Chest x-ray was done. The patient had no focal consolidation or alveolar edema. Brain CT was done. The patient had no acute intracranial process. The cervical spine CT was done. The patient had no evidence of acute fracture or acute traumatic subluxation. Abdomen and pelvis CT was done. The patient had no acute abnormality of the abdomen and pelvis. LABORATORY DATA: The labs were reviewed. The patient has white count 3.9, hemoglobin 12.9, hematocrit 40.3, platelet count 208. Blood gas was done. Initially, was 7.29 with sodium 132, potassium 3.8, chloride 97, carbon dioxide was 21, anion gap was 18, BUN was 30, creatinine 1.49, GFR , last time was 99, calcium 9.1, total bilirubin 0.4. LFTs were negative. Troponin was negative. Beta-hydroxybutyrate was 1.38. ASSESSMENT AND PLAN: The patient will be placed in the hospital with following medical problems: 1. Early stage of diabetic ketoacidosis. The patient has been started on diabetic ketoacidosis protocol, we will follow. We will place the patient in ICU for that reason. 2. Syncope. No clear etiology. We will do workup for syncope, trying to find any etiology for the presentation. 3. Acute kidney injury. Presentation creatinine 1.4. This is an increase in more than 0.3 of baseline. This has resolved with hydration. 4. Leukopenia at 3.9. This is mild, no clear etiology, we will monitor, no need for any acute intervention at this point. 5. Diabetes type 2, uncontrolled, on diabetic ketoacidosis protocol for now. Medications will be reconciled after diabetic ketoacidosis protocol is finished. 6. History of dementia. We will need supportive care as inpatient. 7. Gastroesophageal reflux disease, reconcile home medications. 8. Risk assessment, high risk due to change in neurological status presently with syncope. Job ID: [id number] [facility]
[2018-08-17 04:10] LABS: #Basophils 0.1 thou/uL (0.0-0.2); #Eosinphils 0.1 thou/uL (0.0-0.7); #Lymphocytes 1.7 thou/uL (1.20-3.40); #Monocytes 0.5 thou/uL (0.11-0.59); #Neutrophils 1.6 thou/uL (1.40-6.50); %Basophils 1.5 % (0.0-1.0); %Eosinophils 1.5 % (0.0-10.0); %Lymphocytes 43.5 % (21.0-51.0); %Monocytes 13.3 % (0.0-10.0); %Neutrophils 40.3 % (42.0-75.0); Hemoglobin 10.9 g/dL (12.0-16.0); Mean Corpuscular HGB CONC 32.1 g/dL (32.0-36.0); Mean Corpuscular Hemoglobin 29.6 pg (27.0-31.0); Mean Corpuscular Volume 92.4 fL (78.0-98.0); Mean Platelet Volume 8.3 fL (7.4-10.4); Platelet Count 171 thou/uL (130-400); RBC Distribution Width 13.6 % (11.5-14.5); Red Blood Cell (RBC) Count 3.68 mill/uL (4.20-5.40); White Blood Cell (WBC) Count 3.9 thou/uL (4.8-10.8)
[2018-08-17 04:22] LABS: Anion Gap 11 mmol/L (10-20); BUN (Urea Nitrogen) 21 mg/dL (9.8-20.1); Calc. Creatinine Clearance 0 mL/min (70-130); Carbon Dioxide 21 mmol/L (23-31); Chloride 111 mmol/L (98-107); Estimated GFR-MDRD 67; Potassium 3.6 mmol/L (3.5-5.1); Sodium 139 mmol/L (136-145)
[2018-08-17] MEDS ORDERED: Dextrose 50% Abboject 50 ML SYRINGE ONE (04:28)
[2018-08-17 04:31] LABS: Glucose 53 mg/dL (83-110)
--- NOTE | 2018-08-17 09:25 | ULT ---
CAROTID DUPLEX ULTRASOUND: INDICATION: History of syncope episode. FINDINGS: There is mild intimal thickening of the common carotid arteries and mild posterior calcified atherosc lerotic plaque involving the distal common carotid artery and left carotid bulb. Peak systolic velocity within the right CCA was 117.1 cm/s with a peak systolic velocity in the left CCA of 99 cm/s. Peak systolic velocity in the right ICA was 104.4 cm/s and the left ICA 88.5 cm/s. The right IC:CC ratio is 0.89 and the left is 0.89. Antegrade flow is seen in both vertebral arteries. IMPRESSION: No hemodynamically significant stenosis. POS: [facility]
[2018-08-17 09:50] VITALS: BMI 23.6
[2018-08-17] MEDS: Enoxaparin Sodium 40 MG/0.4 ML SYRINGE SC SCH (10:20)
[2018-08-17] MEDS: D5 1/2 NS w/20 mEq KCL 1,000 ML IV SCH ×2 (12:11→20:26)
[2018-08-17] MEDS: Acetaminophen 325 MG TAB PO PRN (17:11)
--- NOTE | 2018-08-17 17:34 | PDOC.PN ---
- Subjective Encounter Start Date: 08/17/18 Encounter Start Time: 17:34 Ms. Reynaga was seen today in follow-up of fall and uncontrolled DM. She does not have any complaints today. She seems a bit confused. She remembers the events which brought her to the hospital, but she believes she has been her 3 days. She also did not know the month or year. - Objective Resuscitation Status - Order Detail: 08/16/18 21:12 Resuscitation Status Routine Resuscitation Status: FULL: Full Resuscitation MAR Reviewed: Yes Vital Signs & Weight: Vital Signs (12 hours) Temp Pulse Resp BP Pulse Ox 08/17/18 17:00 98.4 F 60 16 166/83 H 95 08/17/18 12:14 98.1 F 70 12 152/67 H 95 08/17/18 09:20 97.9 F 60 18 145/69 H 95 Weight Weight 141 lb 14.4 oz Result Diagrams: 08/17/18 03:56 08/17/18 03:56 Additional Labs: Accuchecks 08/17/18 08/17/18 08/17/18 16:46 10:38 07:10 POC Glucose 222 H 149 H 171 H 08/17/18 08/17/18 08/17/18 05:31 03:05 00:56 POC Glucose 171 H 83 122 H 08/16/18 08/16/18 08/16/18 23:47 23:06 22:16 POC Glucose 139 H 130 H 108 08/16/18 08/16/18 08/16/18 20:57 20:18 19:11 POC Glucose 95 88 216 H 08/16/18 18:07 POC Glucose 242 H Phys Exam - Physical Examination HEENT: PERRLA Respiratory: no wheezing, no rales, no rhonchi, clear to auscultation bilateral Cardiovascular: RRR, no significant murmur, no rub Gastrointestinal: soft, non-tender, positive bowel sounds Musculoskeletal: no edema Dx/Plan (1) Diabetes mellitus type 2, uncontrolled Code(s): E11.65 - TYPE 2 DIABETES MELLITUS WITH HYPERGLYCEMIA Status: Acute (2) Fall Code(s): W19.XXXA - UNSPECIFIED FALL, INITIAL ENCOUNTER Status: Acute (3) Dementia Code(s): F03.90 - UNSPECIFIED DEMENTIA WITHOUT BEHAVIORAL DISTURBANCE Status: Chronic Comment: likely stable (4) Hypertension Code(s): I10 - ESSENTIAL (PRIMARY) HYPERTENSION Status: Chronic Comment: continue to monitor vital signs, titrate antihypertensives as needed - Plan * Syncope- I spoke with the patients daughter and she tells me the patient fell a few days ago at home, but this time she was in [facility] and was in the bathroom when she " blacked out". No report of any seizures. Await Echo results - possible mictruition syncope * The patient is currently residing at [facility], and her daughter tells me they are trying to get her moved to the assisted part of [facility] * DM- this is not well controlled- this may be due to the patient confusing her medications ( I spoke with her daughter and she tells me she gives her mother her medications)- will re-start her home medications as they are directed, and monitor her blood glucose. Adjust medications as needed. She would likely benefit from Home Health to help with her medications if she is not already receiving it * HTN- blood pressure is elevated- will re-start her home medications and monitor the trend .
[2018-08-17] MEDS ORDERED: Dextrose 50% Abboject 50 ML SYRINGE SLOW IVP PRN (17:38)
[2018-08-17] MEDS ORDERED: Dextrose 5% in Water 1,000 ML IV PRN (17:38)
[2018-08-17] MEDS ORDERED: hydrALAZINE 20 MG/ML VIAL SLOW IVP PRN (17:44)
[2018-08-17] MEDS ORDERED: Levemir Flexpen 100 UNITS/ML PEN SC SCH (21:00)
[2018-08-17] MEDS ORDERED: Canagliflozin [Invokana] 100 MG PO SCH (21:00)
[2018-08-17] MEDS: Atorvastatin Calcium 20 MG TAB PO SCH (21:24)
[2018-08-17] MEDS: Insulin Glargine 15 UNITS in Pre-Filled Syringe 1 EACH SC SCH (21:24)
[2018-08-17] MEDS: HumaLOG 300 UNITS/3 ML VIAL SC PRN (21:25)
[2018-08-18] MEDS: HumaLOG 300 UNITS/3 ML VIAL SC PRN ×2 (07:19→21:05)
[2018-08-18] MEDS: metFORMIN 500 MG TAB PO SCH ×2 (09:59→16:41)
[2018-08-18] MEDS: Lisinopril 20 MG TAB PO SCH (09:59)
[2018-08-18] MEDS: Insulin Glargine 15 UNITS in Pre-Filled Syringe 1 EACH SC SCH ×2 (09:59→21:04)
[2018-08-18] MEDS: Citalopram 20 MG TAB PO SCH (10:02)
[2018-08-18] MEDS: Clopidogrel Bisulfate 75 MG TAB PO SCH (10:02)
[2018-08-18] MEDS: Fish Oil 1,000 MG CAP PO SCH (10:02)
[2018-08-18] MEDS: Enoxaparin Sodium 40 MG/0.4 ML SYRINGE SC SCH (10:02)
[2018-08-18] MEDS: Acetaminophen 325 MG TAB PO PRN ×2 (10:40→15:05)
[2018-08-18] MEDS: Ondansetron PF 4 MG/2 ML Vial IVP PRN (13:34)
--- NOTE | 2018-08-18 14:42 | PDOC.PN ---
- Subjective Encounter Start Date: 08/18/18 Encounter Start Time: 14:40 Subjective: feels well. no dizziness .no chest pain /SOB - Objective Resuscitation Status - Order Detail: 08/16/18 21:12 Resuscitation Status Routine Resuscitation Status: FULL: Full Resuscitation MAR Reviewed: Yes Vital Signs & Weight: Vital Signs (12 hours) Temp Pulse Pulse Pulse Resp BP BP 08/18/18 12:05 98.2 F 62 16 08/18/18 11:12 63 197/88 H 08/18/18 10:49 62 08/18/18 10:47 75 08/18/18 10:41 63 08/18/18 09:35 68 69 164/72 H 160/75 H 08/18/18 08:00 98 F 68 18 08/18/18 04:15 98.6 F 65 18 BP BP BP Pulse Ox 08/18/18 12:05 170/78 H 96 08/18/18 11:12 08/18/18 10:49 159/75 H 08/18/18 10:47 153/81 H 08/18/18 10:41 147/70 H 08/18/18 09:35 08/18/18 08:00 174/86 H 96 08/18/18 04:15 164/76 H 92 L Weight Weight 140 lb 4.8 oz I&O: 08/17/18 08/18/18 08/19/18 06:59 06:59 06:59 Intake Total 950 360 Output Total 300 Balance 650 360 Result Diagrams: 08/17/18 03:56 08/17/18 03:56 Additional Labs: Accuchecks 08/18/18 08/18/18 08/17/18 10:45 06:07 20:59 POC Glucose 236 H 309 H 402 H 08/17/18 16:46 POC Glucose 222 H Phys Exam - Physical Examination Constitutional: NAD HEENT: PERRLA, moist MMs, sclera anicteric, oral pharynx no lesions Neck: no nodes, no JVD, supple, full ROM Respiratory: no wheezing, no rales, no rhonchi, clear to auscultation bilateral Cardiovascular: RRR, no significant murmur, no rub Gastrointestinal: soft, non-tender, no distention, positive bowel sounds Musculoskeletal: no edema, pulses present Neurological: non-focal, normal sensation, moves all 4 limbs Psychiatric: normal affect, A&O x 3 Skin: no rash Dx/Plan (1) Syncope Code(s): R55 - SYNCOPE AND COLLAPSE Status: Acute Comment: Carotid doppler and Brain CT NL. ECHO pending. Check orthostatics (2) Fall Code(s): W19.XXXA - UNSPECIFIED FALL, INITIAL ENCOUNTER Status: Acute (3) CAD (coronary artery disease) Code(s): I25.10 - ATHSCL HEART DISEASE OF [place] CORONARY ARTERY W/O ANG PCTRS Status: Chronic Comment: stable (4) Dementia Code(s): F03.90 - UNSPECIFIED DEMENTIA WITHOUT BEHAVIORAL DISTURBANCE Status: Chronic Comment: likely stable (5) Diabetes type 2, controlled Code(s): E11.9 - TYPE 2 DIABETES MELLITUS WITHOUT COMPLICATIONS Status: Chronic (6) Hypertension Code(s): I10 - ESSENTIAL (PRIMARY) HYPERTENSION Status: Chronic Comment: continue to monitor vital signs, titrate antihypertensives as needed - Plan DVT proph w/SCDs stable. meds as below -: Stop NS.monitor.check orthostatics -: Transfer to medical. -: needs placement * . Review of Systems - Review of Systems Constitutional: weakness. negative: fever, chills, sweats, malaise, other ENT: negative: Ear Pain, Ear Discharge, Nose Pain, Nose Discharge, Nose Congestion, Mouth Pain, Mouth Swelling, Throat Pain, Throat Swelling, Other Respiratory: negative: Cough, Dry, Shortness of Breath, Hemoptysis, SOB with Excertion, Pleuritic Pain, Sputum, Wheezing Cardiovascular: negative: chest pain, palpitations, orthopnea, paroxysmal nocturnal dyspnea, edema, light headedness, other Gastrointestinal: negative: Nausea, Vomiting, Abdominal Pain, Diarrhea, Constipation, Melena, Hematochezia, Other Genitourinary: negative: Dysuria, Frequency, Incontinence, Hematuria, Retention , Other Neurological: negative: Weakness, Numbness, Incoordination, Change in Speech, Confusion, Seizures, Other - Medications/Allergies Allergies/Adverse Reactions: Allergies Allergy/AdvReac Type Severity Reaction Status Date / Time No Known Drug Allergies Allergy Verified 08/17/18 09:39 Medications: Current Medications Acetaminophen (Tylenol) 650 mg PO Q4H PRN PRN Reason: Headache/Fever/Mild Pain (1-3) Last Admin: 08/18/18 10:40 Dose: 650 mg Atorvastatin Calcium (Lipitor) 20 mg PO HS [facility] Last Admin: 08/17/18 21:24 Dose: 20 mg Citalopram Hydrobromide (Celexa) 20 mg PO DAILY [facility] Last Admin: 08/18/18 10:02 Dose: 20 mg Clopidogrel Bisulfate (Plavix) 75 mg PO DAILY [facility] Last Admin: 08/18/18 10:02 Dose: 75 mg Dextrose/Water (Dextrose 50%) 25 gm SLOW IVP PRN PRN PRN Reason: Hypoglycemia Enoxaparin Sodium (Lovenox) 40 mg SC 0900 [facility] Last Admin: 08/18/18 10:02 Dose: 40 mg Fish Oil (Fish Oil) 1,000 mg PO DAILY [facility] Last Admin: 08/18/18 10:02 Dose: 1,000 mg Glucagon (Glucagon) 1 mg IM PRN PRN PRN Reason: Hypoglycemia Hydralazine HCl (Apresoline) 10 mg SLOW IVP Q4H PRN PRN Reason: SBP > 180 and HR < 70 Magnesium Sulfate 1 gm/ Sodium (Chloride) 102 mls @ 102 mls/hr IV PRN PRN PRN Reason: MAG LEVEL 1.4 - 2.0 Dextrose/Water (D5w) 1,000 mls @ 0 mls/hr IV .Q0M PRN PRN Reason: Hypoglycemia Insulin Glargine 15 units/ (Miscellaneous Medication) 0.15 mls @ 0 mls/hr SC BID [facility] Last Admin: 08/18/18 09:59 Dose: 0.15 mls Insulin Human Lispro (Humalog) 0 units SC .MILD SLIDING SCALE PRN PRN Reason: Mild Correctional Scale Last Admin: 08/18/18 07:19 Dose: 5 unit Insulin Human Lispro (Humalog) 0 units SC .BEDTIME SLIDING SC PRN PRN Reason: Bedtime Correctional Scale Last Admin: 08/17/18 21:25 Dose: 5 unit Lisinopril (Zestril) 20 mg PO DAILY [facility] Last Admin: 08/18/18 09:59 Dose: 20 mg Magnesium Oxide (Magnesium Oxide) 400 mg PO BIDPRN PRN PRN Reason: FOR SERUM MAG 1.4 - 2.0 Magnesium Oxide (Magnesium Oxide) 800 mg PO PRN PRN PRN Reason: FOR SERUM MAG < 1.4 Memantine (Namenda) 10 mg PO DAILY [facility] Last Admin: 08/18/18 10:02 Dose: 10 mg Metformin HCl (Glucophage) 500 mg PO BID-WM [facility] Last Admin: 08/18/18 09:59 Dose: 500 mg Ccu Electrolyte (Replacement Protocol) 0 each FS PRN PRN PRN Reason: FOR ELECTROLYTE REPLACEMENT Ondansetron HCl (Zofran) 4 mg IVP Q6H PRN PRN Reason: Nausea/Vomiting Last Admin: 08/18/18 13:34 Dose: 4 mg Pantoprazole Sodium (Protonix) 40 mg PO DAILY [facility] Last Admin: 08/18/18 10:02 Dose: 40 mg Canagliflozin [ (Invokana] 100 Mg) 0 each PO HS [facility]GAN Sodium Chloride (Flush - Normal Saline) 10 ml IVF Q12HR [facility] Last Admin: 08/18/18 10:03 Dose: 10 ml Sodium Chloride (Flush - Normal Saline) 10 ml IVF PRN PRN PRN Reason: Saline Flush
[2018-08-18] MEDS ORDERED: Amlodipine 5 MG TAB PO SCH (15:15)
[2018-08-18] MEDS: Atorvastatin Calcium 20 MG TAB PO SCH (21:04)
[2018-08-19] MEDS: Amlodipine 5 MG TAB PO SCH (08:30)
[2018-08-19] MEDS: metFORMIN 500 MG TAB PO SCH ×2 (08:30→16:28)
[2018-08-19] MEDS: Citalopram 20 MG TAB PO SCH (08:31)
[2018-08-19] MEDS: Clopidogrel Bisulfate 75 MG TAB PO SCH (08:31)
[2018-08-19] MEDS: Fish Oil 1,000 MG CAP PO SCH (08:32)
[2018-08-19] MEDS: Insulin Glargine 15 UNITS in Pre-Filled Syringe 1 EACH SC SCH ×2 (08:32→21:00)
[2018-08-19] MEDS: Enoxaparin Sodium 40 MG/0.4 ML SYRINGE SC SCH (08:32)
[2018-08-19] MEDS: Lisinopril 20 MG TAB PO SCH (08:33)
[2018-08-19] MEDS: ALPRAZolam 0.25 MG TAB PO PRN (12:38)
[2018-08-19] MEDS: HumaLOG 300 UNITS/3 ML VIAL SC PRN (12:41)
--- NOTE | 2018-08-19 15:08 | PDOC.PN ---
- Subjective Encounter Start Date: 08/19/18 Encounter Start Time: 15:07 Subjective: feels better.no new complaints - Objective Resuscitation Status - Order Detail: 08/16/18 21:12 Resuscitation Status Routine Resuscitation Status: FULL: Full Resuscitation MAR Reviewed: Yes Vital Signs & Weight: Vital Signs (12 hours) Temp Pulse Resp BP BP BP Pulse Ox 08/19/18 11:00 98.2 F 62 16 175/81 H 95 08/19/18 08:33 149/70 H 08/19/18 08:30 69 149/70 H 08/19/18 07:45 98.3 F 69 16 149/70 H 94 L 08/19/18 03:38 98.8 F 65 17 160/77 H 95 Weight Weight 138 lb 12.8 oz I&O: 08/18/18 08/19/18 08/20/18 06:59 06:59 06:59 Intake Total 950 840 Output Total 300 Balance 650 840 Result Diagrams: 08/17/18 03:56 08/17/18 03:56 Additional Labs: Accuchecks 08/19/18 08/19/18 08/18/18 10:38 05:42 20:22 POC Glucose 256 H 141 H 209 H 08/18/18 16:52 POC Glucose 170 H Microbiology 08/14/18 10:40 Urine Straight Catheter Urine Culture - Final Laboratory Tests 08/16/18 08/16/18 08/17/18 13:32 21:28 01:26 Creatinine 1.49 H 0.85 0.82 08/17/18 03:56 Creatinine 0.83 Phys Exam - Physical Examination Constitutional: NAD HEENT: PERRLA, moist MMs, sclera anicteric, oral pharynx no lesions Neck: no nodes, no JVD, supple, full ROM Respiratory: no wheezing, no rales, no rhonchi, clear to auscultation bilateral Cardiovascular: RRR, no significant murmur Gastrointestinal: soft, non-tender, no distention, positive bowel sounds Musculoskeletal: no edema, pulses present Neurological: non-focal, normal sensation, moves all 4 limbs Psychiatric: normal affect, A&O x 3 Skin: no rash Dx/Plan (1) Syncope Code(s): R55 - SYNCOPE AND COLLAPSE Status: Acute Comment: Carotid doppler and Brain CT NL. ECHO pending. Check orthostatics (2) Fall Code(s): W19.XXXA - UNSPECIFIED FALL, INITIAL ENCOUNTER Status: Acute (3) CAD (coronary artery disease) Code(s): I25.10 - ATHSCL HEART DISEASE OF [place] CORONARY ARTERY W/O ANG PCTRS Status: Chronic Comment: stable (4) Dementia Code(s): F03.90 - UNSPECIFIED DEMENTIA WITHOUT BEHAVIORAL DISTURBANCE Status: Chronic Comment: likely stable (5) Diabetes type 2, controlled Code(s): E11.9 - TYPE 2 DIABETES MELLITUS WITHOUT COMPLICATIONS Status: Chronic (6) Hypertension Code(s): I10 - ESSENTIAL (PRIMARY) HYPERTENSION Status: Chronic Comment: continue to monitor vital signs, titrate antihypertensives as needed - Plan PT/OT, DVT proph w/SCDs OK to DC. will see if she qualifies for rehab or not -: if not ,then home w HH -: BP still higher side but pt very anxious of new room & height -: will transfer to medical-oncology for fear of heights -: HD stable. started on norvasc yesterday.titrate.cont lisinopril * . Review of Systems - Review of Systems Constitutional: negative: fever, chills, sweats, weakness, malaise, other ENT: negative: Ear Pain, Ear Discharge, Nose Pain, Nose Discharge, Nose Congestion, Mouth Pain, Mouth Swelling, Throat Pain, Throat Swelling, Other Respiratory: negative: Cough, Dry, Shortness of Breath, Hemoptysis, SOB with Excertion, Pleuritic Pain, Sputum, Wheezing Cardiovascular: negative: chest pain, palpitations, orthopnea, paroxysmal nocturnal dyspnea, edema, light headedness, other Gastrointestinal: negative: Nausea, Vomiting, Abdominal Pain, Diarrhea, Constipation, Melena, Hematochezia, Other Genitourinary: negative: Dysuria, Frequency, Incontinence, Hematuria, Retention , Other Musculoskeletal: negative: Neck Pain, Shoulder Pain, Arm Pain, Back Pain, Hand Pain, Leg Pain, Foot Pain, Other Neurological: negative: Weakness, Numbness, Incoordination, Change in Speech, Confusion, Seizures, Other - Medications/Allergies Allergies/Adverse Reactions: Allergies Allergy/AdvReac Type Severity Reaction Status Date / Time No Known Drug Allergies Allergy Verified 08/17/18 09:39 Medications: Current Medications Acetaminophen (Tylenol) 650 mg PO Q4H PRN PRN Reason: Headache/Fever/Mild Pain (1-3) Last Admin: 08/18/18 15:05 Dose: 650 mg Alprazolam (Xanax) 0.25 mg PO BIDPRN PRN PRN Reason: Anxiety Last Admin: 08/19/18 12:38 Dose: 0.25 mg Amlodipine Besylate (Norvasc) 5 mg PO DAILY [facility] Last Admin: 08/19/18 08:30 Dose: 5 mg Atorvastatin Calcium (Lipitor) 20 mg PO HS [facility] Last Admin: 08/18/18 21:04 Dose: 20 mg Citalopram Hydrobromide (Celexa) 20 mg PO DAILY [facility] Last Admin: 08/19/18 08:31 Dose: 20 mg Clopidogrel Bisulfate (Plavix) 75 mg PO DAILY [facility] Last Admin: 08/19/18 08:31 Dose: 75 mg Dextrose/Water (Dextrose 50%) 25 gm SLOW IVP PRN PRN PRN Reason: Hypoglycemia Enoxaparin Sodium (Lovenox) 40 mg SC 0900 [facility] Last Admin: 08/19/18 08:32 Dose: 40 mg Fish Oil (Fish Oil) 1,000 mg PO DAILY [facility] Last Admin: 08/19/18 08:32 Dose: 1,000 mg Glucagon (Glucagon) 1 mg IM PRN PRN PRN Reason: Hypoglycemia Hydralazine HCl (Apresoline) 10 mg SLOW IVP Q4H PRN PRN Reason: SBP > 180 and HR < 70 Magnesium Sulfate 1 gm/ Sodium (Chloride) 102 mls @ 102 mls/hr IV PRN PRN PRN Reason: MAG LEVEL 1.4 - 2.0 Dextrose/Water (D5w) 1,000 mls @ 0 mls/hr IV .Q0M PRN PRN Reason: Hypoglycemia Insulin Glargine 15 units/ (Miscellaneous Medication) 0.15 mls @ 0 mls/hr SC BID [facility] Last Admin: 08/19/18 08:32 Dose: 0.15 mls Insulin Human Lispro (Humalog) 0 units SC .MILD SLIDING SCALE PRN PRN Reason: Mild Correctional Scale Last Admin: 08/19/18 12:41 Dose: 4 unit Insulin Human Lispro (Humalog) 0 units SC .BEDTIME SLIDING SC PRN PRN Reason: Bedtime Correctional Scale Last Admin: 08/18/18 21:05 Dose: 2 unit Lisinopril (Zestril) 20 mg PO DAILY [facility] Last Admin: 08/19/18 08:33 Dose: 20 mg Magnesium Oxide (Magnesium Oxide) 400 mg PO BIDPRN PRN PRN Reason: FOR SERUM MAG 1.4 - 2.0 Magnesium Oxide (Magnesium Oxide) 800 mg PO PRN PRN PRN Reason: FOR SERUM MAG < 1.4 Memantine (Namenda) 10 mg PO DAILY [facility] Last Admin: 08/19/18 08:33 Dose: 10 mg Metformin HCl (Glucophage) 500 mg PO BID[facility] Last Admin: 08/19/18 08:30 Dose: 500 mg Ccu Electrolyte (Replacement Protocol) 0 each FS PRN PRN PRN Reason: FOR ELECTROLYTE REPLACEMENT Ondansetron HCl (Zofran) 4 mg IVP Q6H PRN PRN Reason: Nausea/Vomiting Last Admin: 08/18/18 13:34 Dose: 4 mg Pantoprazole Sodium (Protonix) 40 mg PO DAILY [facility] Last Admin: 08/19/18 08:33 Dose: 40 mg Canagliflozin [ (Invokana] 100 Mg) 0 each PO HS [facility] Sodium Chloride (Flush - Normal Saline) 10 ml IVF Q12HR [facility] Last Admin: 08/19/18 08:33 Dose: 10 ml Sodium Chloride (Flush - Normal Saline) 10 ml IVF PRN PRN PRN Reason: Saline Flush
[2018-08-19] MEDS: Acetaminophen 325 MG TAB PO PRN (16:28)
[2018-08-19] MEDS ORDERED: Nystatin Powder 15 GM BOT TOP PRN (17:40)
[2018-08-19] MEDS ORDERED: Fluconazole 100 MG TAB PO SCH (17:45)
[2018-08-19] MEDS: Atorvastatin Calcium 20 MG TAB PO SCH (21:19)
[2018-08-19] MEDS: Ondansetron PF 4 MG/2 ML Vial IVP PRN (21:29)
[2018-08-20] MEDS: Fish Oil 1,000 MG CAP PO SCH (09:01)
[2018-08-20] MEDS: metFORMIN 500 MG TAB PO SCH ×2 (09:02→16:39)
[2018-08-20] MEDS: Clopidogrel Bisulfate 75 MG TAB PO SCH (09:02)
[2018-08-20] MEDS: Lisinopril 20 MG TAB PO SCH (09:02)
[2018-08-20] MEDS: Amlodipine 5 MG TAB PO SCH (09:02)
[2018-08-20] MEDS: Enoxaparin Sodium 40 MG/0.4 ML SYRINGE SC SCH (09:02)
[2018-08-20] MEDS: Citalopram 20 MG TAB PO SCH (09:02)
[2018-08-20] MEDS: Insulin Glargine 15 UNITS in Pre-Filled Syringe 1 EACH SC SCH (09:06)
--- NOTE | 2018-08-20 10:36 | PDOC.PN ---
- Subjective Encounter Start Date: 08/20/18 Encounter Start Time: 07:00 Subjective: feels better, no dizziness now or chest pain - Objective Resuscitation Status - Order Detail: 08/16/18 21:12 Resuscitation Status Routine Resuscitation Status: FULL: Full Resuscitation MAR Reviewed: Yes Vital Signs & Weight: Vital Signs (12 hours) Temp Pulse Resp BP BP BP Pulse Ox 08/20/18 09:02 75 141/82 H 08/20/18 08:00 96 08/20/18 07:50 97.7 F 75 18 141/82 H 96 08/20/18 04:29 98.3 F 67 16 152/82 H 97 08/20/18 00:34 97.8 F 68 16 147/77 H 95 Weight Weight 138 lb 12.8 oz I&O: 08/19/18 08/20/18 08/21/18 06:59 06:59 06:59 Intake Total 840 Balance 840 Result Diagrams: 08/17/18 03:56 08/17/18 03:56 Additional Labs: Accuchecks 08/20/18 08/19/18 08/19/18 05:20 20:00 17:16 POC Glucose 188 H 196 H 80 08/19/18 10:38 POC Glucose 256 H Phys Exam - Physical Examination HEENT: PERRLA, moist MMs Neck: no JVD, supple Respiratory: no wheezing, no rales Cardiovascular: RRR, no significant murmur Gastrointestinal: soft, non-tender, positive bowel sounds Musculoskeletal: no edema, pulses present Neurological: non-focal, moves all 4 limbs Psychiatric: normal affect, A&O x 3 Dx/Plan (1) Syncope Code(s): R55 - SYNCOPE AND COLLAPSE Status: Acute Comment: Carotid doppler and Brain CT NL. (2) Fall Code(s): W19.XXXA - UNSPECIFIED FALL, INITIAL ENCOUNTER Status: Acute Qualifiers: Encounter type: subsequent encounter Qualified Code(s): W19.XXXD - Unspecified fall, subsequent encounter (3) CAD (coronary artery disease) Code(s): I25.10 - ATHSCL HEART DISEASE OF [place] CORONARY ARTERY W/O ANG PCTRS Status: Chronic Qualifiers: Coronary Disease-Associated Artery/Lesion type: [place] artery [place] vs. transplanted heart: [place] heart Associated angina: without angina Qualified Code(s): I25.10 - Atherosclerotic heart disease of [place] coronary artery without angina pectoris Comment: stable (4) Dementia Code(s): F03.90 - UNSPECIFIED DEMENTIA WITHOUT BEHAVIORAL DISTURBANCE Status: Chronic Qualifiers: Dementia type: unspecified type Dementia behavioral disturbance: without behavioral disturbance Qualified Code(s): F03.90 - Unspecified dementia without behavioral disturbance Comment: likely stable (5) Diabetes type 2, controlled Code(s): E11.9 - TYPE 2 DIABETES MELLITUS WITHOUT COMPLICATIONS Status: Chronic Qualifiers: Diabetes mellitus terminal system operator insulin use: with terminal system operator use Diabetes mellitus complication status: with unspecified complications Qualified Code(s) : E11.8 - Type 2 diabetes mellitus with unspecified complications; Z79.4 - [facility] (current) use of insulin (6) Dyslipidemia Code(s): E78.5 - HYPERLIPIDEMIA, UNSPECIFIED Status: Chronic Comment: stable (7) Hypertension Code(s): I10 - ESSENTIAL (PRIMARY) HYPERTENSION Status: Chronic Qualifiers: Hypertension type: essential hypertension Qualified Code(s): I10 - Essential (primary) hypertension Comment: continue to monitor vital signs, titrate antihypertensives as needed (8) NEIL (acute kidney injury) Code(s): N17.9 - ACUTE KIDNEY FAILURE, UNSPECIFIED Status: Resolved - Plan awaiting rehab placement, may dc if accepted -: is on norvasc, lisinopril, plavix, lipitor -: levemir and metformin for dm, namenda -: no invokana on discharge -: to amb as tolerated with PT, echo shows good ef * . Review of Systems - Medications/Allergies Allergies/Adverse Reactions: Allergies Allergy/AdvReac Type Severity Reaction Status Date / Time No Known Drug Allergies Allergy Verified 08/17/18 09:39 Medications: Current Medications Acetaminophen (Tylenol) 650 mg PO Q4H PRN PRN Reason: Headache/Fever/Mild Pain (1-3) Last Admin: 08/19/18 16:28 Dose: 650 mg Alprazolam (Xanax) 0.25 mg PO BIDPRN PRN PRN Reason: Anxiety Last Admin: 08/19/18 12:38 Dose: 0.25 mg Amlodipine Besylate (Norvasc) 5 mg PO DAILY [facility] Last Admin: 08/20/18 09:02 Dose: 5 mg Atorvastatin Calcium (Lipitor) 20 mg PO HS [facility] Last Admin: 08/19/18 21:19 Dose: 20 mg Citalopram Hydrobromide (Celexa) 20 mg PO DAILY [facility] Last Admin: 08/20/18 09:02 Dose: 20 mg Clopidogrel Bisulfate (Plavix) 75 mg PO DAILY [facility] Last Admin: 08/20/18 09:02 Dose: 75 mg Dextrose/Water (Dextrose 50%) 25 gm SLOW IVP PRN PRN PRN Reason: Hypoglycemia Enoxaparin Sodium (Lovenox) 40 mg SC 0900 [facility] Last Admin: 08/20/18 09:02 Dose: 40 mg Fish Oil (Fish Oil) 1,000 mg PO DAILY [facility] Last Admin: 08/20/18 09:01 Dose: 1,000 mg Glucagon (Glucagon) 1 mg IM PRN PRN PRN Reason: Hypoglycemia Hydralazine HCl (Apresoline) 10 mg SLOW IVP Q4H PRN PRN Reason: SBP > 180 and HR < 70 Magnesium Sulfate 1 gm/ Sodium (Chloride) 102 mls @ 102 mls/hr IV PRN PRN PRN Reason: MAG LEVEL 1.4 - 2.0 Dextrose/Water (D5w) 1,000 mls @ 0 mls/hr IV .Q0M PRN PRN Reason: Hypoglycemia Insulin Glargine 15 units/ (Miscellaneous Medication) 0.15 mls @ 0 mls/hr SC BID [facility] Last Admin: 08/20/18 09:06 Dose: 0.15 mls Insulin Human Lispro (Humalog) 0 units SC .MILD SLIDING SCALE PRN PRN Reason: Mild Correctional Scale Last Admin: 08/19/18 12:41 Dose: 4 unit Insulin Human Lispro (Humalog) 0 units SC .BEDTIME SLIDING SC PRN PRN Reason: Bedtime Correctional Scale Last Admin: 08/18/18 21:05 Dose: 2 unit Lisinopril (Zestril) 20 mg PO DAILY [facility] Last Admin: 08/20/18 09:02 Dose: 20 mg Magnesium Oxide (Magnesium Oxide) 400 mg PO BIDPRN PRN PRN Reason: FOR SERUM MAG 1.4 - 2.0 Magnesium Oxide (Magnesium Oxide) 800 mg PO PRN PRN PRN Reason: FOR SERUM MAG < 1.4 Memantine (Namenda) 10 mg PO DAILY [facility] Last Admin: 08/20/18 09:02 Dose: 10 mg Metformin HCl (Glucophage) 500 mg PO BID-[facility] Last Admin: 08/20/18 09:02 Dose: 500 mg Ccu Electrolyte (Replacement Protocol) 0 each FS PRN PRN PRN Reason: FOR ELECTROLYTE REPLACEMENT Nystatin (Mycostatin Powder) 0 gm TOP BID PRN PRN Reason: Topical Irritations Last Admin: 08/19/18 18:18 Dose: 1 gm Ondansetron HCl (Zofran) 4 mg IVP Q6H PRN PRN Reason: Nausea/Vomiting Last Admin: 08/19/18 21:29 Dose: 4 mg Pantoprazole Sodium (Protonix) 40 mg PO DAILY [facility] Last Admin: 08/20/18 09:02 Dose: 40 mg Canagliflozin [ (Invokana] 100 Mg) 0 each PO HS [facility] Sodium Chloride (Flush - Normal Saline) 10 ml IVF Q12HR [facility] Last Admin: 08/20/18 09:03 Dose: 10 ml Sodium Chloride (Flush - Normal Saline) 10 ml IVF PRN PRN PRN Reason: Saline Flush
[2018-08-20] MEDS: HumaLOG 300 UNITS/3 ML VIAL SC PRN (11:51)
[2018-08-20 13:28] VITALS: BP 132/64; TEMP 98.4
[2018-08-20] MEDS: Ondansetron PF 4 MG/2 ML Vial IVP PRN (15:18)
[2018-08-20] MEDS: Acetaminophen 325 MG TAB PO PRN (16:39)
[2018-08-20] MEDS: ALPRAZolam 0.25 MG TAB PO PRN (16:39)
--- NOTE | 2018-08-21 19:09 | DIS ---
DATE OF ADMISSION: 08/16/2018 DATE OF DISCHARGE: 08/20/2018 DISCHARGE DISPOSITION: To inpatient rehab. PRIMARY DISCHARGE DIAGNOSES: Syncope, history of fall. SECONDARY DISCHARGE DIAGNOSES: Coronary artery disease; dementia; diabetes mellitus type 2; dyslipidemia; hypertension; acute kidney injury on admission, resolved. PROCEDURES DONE DURING HOSPITALIZATION: Echo 2D Doppler showed EF of 55% to 60% . There was diastolic dysfunction. CT of the abdomen and pelvis with contrast done showed no mass, lymphadenopathy, free air, or free fluid. No lytic or blastic lesions were seen in the osseous structures. CT of cervical spine noncontrast showed no evidence of fracture or acute traumatic subluxation. Carotid Doppler , no hemodynamically significant stenosis. DISCHARGE MEDICATIONS: 1. Celexa 20 mg daily. 2. Plavix 75 mg daily. 3. Gabapentin 300 mg p.o. three times daily. 4. Lisinopril 20 mg daily. 5. Namenda 10 mg daily. 6. Metformin 500 mg p.o. twice daily. 7. Fish oil 1 capsule daily. 8. Protonix 40 mg daily. 9. Simvastatin 40 mg p.o. at bedtime. 10. Norvasc 5 mg p.o. daily. 11. Levemir 15 units subcu twice daily. ALLERGIES: NO KNOWN DRUG ALLERGIES. DISCHARGE PLAN: The patient to follow up with primary care physician in 1 week. BRIEF COURSE DURING HOSPITALIZATION: The patient initially got admitted for workup of syncope. She had a fall in the bathroom in her home. The patient was also into early DKA and was started on DKA protocol in the ER. The patient has had multiple workups toward her syncope done. Prior to discharge, she is hemodynamically stable, fully oriented and has started to ambulate. Due to ongoing deconditioning, she is being discharged to inpatient rehab for further recuperation prior to going home. Please note, the patient's Invokana has been discontinued due to electrolyte abnormalities on admission. Please see a [id number] documentation for the day of discharge on [employer]. A total of 35 minutes was spent on discharge plan. Job ID: [id number] MTDD
== END 2018-08-20 18:43 | DRG 638 ==
LOC: ERS 12:51 → ERHOLD 18:19 → 2NO 08-17 09:00 → T4-B 08-19 11:09 → ONC 08-20 10:07
PROVIDERS: ADMIT Emergency Medicine; ATTEND Emergency Medicine
DX: E11.10 Type 2 diabetes mellitus with ketoacidosis without coma (principal); N17.9 Acute kidney failure, unspecified; I10 Essential (primary) hypertension; F03.90 Unspecified dementia, unspecified severity, without behavioral disturbance, psychotic disturbance, mood disturbance, and anxiety; E11.42 Type 2 diabetes mellitus with diabetic polyneuropathy; I25.10 Atherosclerotic heart disease of native coronary artery without angina pectoris; K21.9 Gastro-esophageal reflux disease without esophagitis; F32.9 Major depressive disorder, single episode, unspecified; R55 Syncope and collapse; Z91.81 History of falling; Z87.11 Personal history of peptic ulcer disease; Z79.02 Long term (current) use of antithrombotics/antiplatelets; Z79.4 Long term (current) use of insulin; Z79.899 Other long term (current) drug therapy; Z95.1 Presence of aortocoronary bypass graft
CPT/HCPCS: 36415; 36416; 51701; 70450; 71046; 72072; 72100; 72125; 74177; 80048; 80053; 81003; 81015; 82010; 82330; 82550; 82803; 84484; 85025; 87086; 93005; 93306; 93880; 96361; 96365; 96366; 96375; A4353; J1650; J1815; J1825; J2270; J2405; J7050; Q9966

== ENCOUNTER 2018-09-26 14:48 | Emergency (ER) | payer MEDICARE, MEDICAID | END 2018-09-26 15:57 | disposition home or self-care (01) | LOC: ERS 14:48 | DX: Z00.00 Encounter for general adult medical examination without abnormal findings (principal); E11.40 Type 2 diabetes mellitus with diabetic neuropathy, unspecified; F03.90 Unspecified dementia, unspecified severity, without behavioral disturbance, psychotic disturbance, mood disturbance, and anxiety; F32.9 Major depressive disorder, single episode, unspecified; I10 Essential (primary) hypertension; Z79.4 Long term (current) use of insulin | CPT/HCPCS: 36416; 99283 ==

== ENCOUNTER 2019-06-23 10:03 | Outpatient (CLI) | payer MEDICARE, MEDICAID ==
--- NOTE | 2019-06-23 11:28 | BD ---
BONE DENSITOMETRY USING DEXA: HISTORY: Post menopausal screening for osteoporosis. Asymptomatic menopausal state. FINDINGS LUMBAR SPINE BMD (g/cm2) T-SCORE Z-SCORE L1 0.764 -2.1 0.1 L2 0.876 -1.4 1.0 L3 0.950 -1.2 1.3 L4 0.927 -1.2 1.4 TOTAL 0.886 -1.5 1.0 BMD (g/cm2) T-SCORE Z-SCORE NECK 0.554 -2.7 -0.5 TOTAL 0.708 -1.9 -0.1 IMPRESSION: Osteoporosis. POS: ARANZA
--- NOTE | 2019-06-23 16:36 | MMO ---
Bilateral MAMMO Bilat Screen [facility]. CLINICAL HISTORY: Patient is 73 years old and is seen for screening. The patient has no family history of breast cancer. The patient has no personal history of cancer. VIEWS: The views performed were: bilateral craniocaudal with tomosynthesis; bilateral mediolateral oblique with tomosynthesis; and right craniocaudal. FILMS COMPARED: The present examination has been compared to prior imaging studies performed at [facility] on 04/07/2018, and [place] [facility], 05/02/2004 and 11/07/2015. This study has been interpreted with the assistance of computer-aided detection. MAMMOGRAM FINDINGS: There are scattered fibroglandular densities. There are no suspicious masses, suspicious calcifications, or new areas of architectural distortion. IMPRESSION: THERE IS NO MAMMOGRAPHIC EVIDENCE OF MALIGNANCY. A ROUTINE FOLLOW-UP MAMMOGRAM IN 1 YEAR IS RECOMMENDED. THE RESULTS OF THIS EXAM WERE SENT TO THE PATIENT. ACR BI-RADS Category 1 - Negative MAMMOGRAPHY NOTE: 1. A negative mammogram report should not delay a biopsy if a dominant of clinically suspicious mass is present. 2. Approximately 10% to 15% of breast cancers are not detected by mammography. 3. Adenosis and dense breasts may obscure an underlying neoplasm. Reported by: LARA MADRIGAL MD Electonically Signed: [id number]
== END 2019-06-23 10:04 | disposition home or self-care (01) ==
LOC: BICMAMMO 10:03
PROVIDERS: ATTEND Family Medicine
DX: Z12.31 Encounter for screening mammogram for malignant neoplasm of breast (principal); Z13.820 Encounter for screening for osteoporosis; Z78.0 Asymptomatic menopausal state; M81.0 Age-related osteoporosis without current pathological fracture
CPT/HCPCS: 77063; 77067; 77080

== ENCOUNTER 2020-04-11 19:04 | Emergency (ER) | payer MEDICARE, MEDICAID ==
[2020-04-11 20:10] LABS: #Basophils 0.1 thou/uL (0.0-0.2); #Eosinphils 0.2 thou/uL (0.0-0.7); #Lymphocytes 3.1 thou/uL (1.20-3.40); #Monocytes 0.8 thou/uL (0.11-0.59); #Neutrophils 3.9 thou/uL (1.40-6.50); %Basophils 0.9 % (0.0-1.0); %Lymphocytes 38.2 % (21.0-51.0); %Monocytes 9.6 % (0.0-10.0); %Neutrophils 48.3 % (42.0-75.0); Mean Corpuscular HGB CONC 32.5 g/dL (32.0-36.0); Mean Corpuscular Hemoglobin 28.2 pg (27.0-31.0); Mean Platelet Volume 8.4 fL (7.4-10.4); Platelet Count 248 thou/uL (130-400); Red Blood Cell (RBC) Count 3.89 mill/uL (4.20-5.40); White Blood Cell (WBC) Count 8.2 thou/uL (4.8-10.8)
--- NOTE | 2020-04-11 20:24 | RAD ---
XR Chest 1 View Portable HISTORY: Lightheadedness, hypotension COMPARISON: 03/03/2020 FINDINGS: The heart size is normal. The aorta is tortuous. The lungs are well expanded without focal areas of consolidation, pneumothorax or pleural effusions. IMPRESSION: No radiographic evidence of acute cardiopulmonary process.
[2020-04-11 20:30] LABS: ALT (SGPT) 13 U/L (8-55); AST (SGOT) 16 U/L (5-34); Albumin 4.1 g/dL (3.4-4.8); Alkaline Phosphatase 51 U/L (40-110); Anion Gap 13 mmol/L (10-20); BUN (Urea Nitrogen) 30 mg/dL (9.8-20.1); Bilirubin, Total 0.2 mg/dL (0.2-1.2); Calc. Creatinine Clearance 0 mL/min (70-130); Calcium 8.9 mg/dL (7.8-10.44); Carbon Dioxide 26 mmol/L (23-31); Chloride 103 mmol/L (98-107); Estimated GFR-MDRD 57; Globulin 2.9 g/dL (2.4-3.5); Sodium 138 mmol/L (136-145)
[2020-04-11 20:41] LABS: Glucose 50 mg/dL (83-110)
[2020-04-11 21:34] LABS: Bilirubin Negative (Negative); Blood, Urine Negative (Negative); Clarity Clear (Clear); Glucose, Urine (Dipstick) Greater than 1000 mg/dL (Negative); Ketone, Urine Negative (Negative); Leukocyte Negative Leu/uL (Negative); Nitrite Negative (Negative); Protein, Urine (Dipstick) Negative (Neg-Trace); Specific Gravity, Urine 1.025 (1.002-1.036); Urobilinogen Normal mg/dL (Less than 2)
== END 2020-04-11 21:49 | disposition home or self-care (01) ==
LOC: ERS 19:04
DX: I95.9 Hypotension, unspecified (principal); E11.649 Type 2 diabetes mellitus with hypoglycemia without coma; I10 Essential (primary) hypertension; E86.0 Dehydration; E11.40 Type 2 diabetes mellitus with diabetic neuropathy, unspecified; F32.9 Major depressive disorder, single episode, unspecified; Z79.4 Long term (current) use of insulin; Z79.899 Other long term (current) drug therapy
CPT/HCPCS: 51701; 71045; 80053; 81003; 84484; 85025; 93005; 96360

== ENCOUNTER 2020-06-28 07:58 | Outpatient (CLI) | payer MEDICARE, MEDICAID ==
--- NOTE | 2020-06-28 08:35 | MMO ---
Bilateral MAMMO Bilat Screen [facility]. CLINICAL HISTORY: Patient is 75 years old and is seen for screening. The patient has no family history of breast cancer. The patient has no personal history of cancer. VIEWS: The views performed were: bilateral craniocaudal with tomosynthesis and bilateral mediolateral oblique with tomosynthesis. FILMS COMPARED: The present examination has been compared to prior imaging studies performed at [facility] on 04/07/2018 and 06/23/2019, and at [facility] on 05/02/2004 and 11/07/2015. This study has been interpreted with the assistance of computer-aided detection. MAMMOGRAM FINDINGS: There are scattered fibroglandular densities. There are stable benign appearing calcifications seen in both breasts. There are also vascular calcifications. There are no suspicious masses, suspicious calcifications, or new areas of architectural distortion. IMPRESSION: THERE IS NO MAMMOGRAPHIC EVIDENCE OF MALIGNANCY. A ROUTINE FOLLOW-UP MAMMOGRAM IN 1 YEAR IS RECOMMENDED. THE RESULTS OF THIS EXAM WERE SENT TO THE PATIENT. ACR BI-RADS Category 2 - Benign finding MAMMOGRAPHY NOTE: 1. A negative mammogram report should not delay a biopsy if a dominant of clinically suspicious mass is present. 2. Approximately 10% to 15% of breast cancers are not detected by mammography. 3. Adenosis and dense breasts may obscure an underlying neoplasm. Reported by: BETHANY SALMERON MD Electonically Signed: [id number]
== END 2020-06-28 07:59 | disposition home or self-care (01) ==
LOC: BICMAMMO 07:58
PROVIDERS: ATTEND Family Medicine
DX: Z12.31 Encounter for screening mammogram for malignant neoplasm of breast (principal)
CPT/HCPCS: 77063; 77067

== ENCOUNTER 2022-06-07 20:00 | Emergency (ER) | payer MEDICARE, MEDICAID ==
[~2022-06-07 20:00] MED LIST changes: -ISOVUE-370 76%-LOCM 1 ML ONE; +Iopamidol-370 76% 500 ML 1 ML ONE
[2022-06-07 20:31] LABS: #Eosinphils 0.2 thou/uL (0.0-0.7); #Monocytes 0.7 thou/uL (0.11-0.59); #Neutrophils 6.8 thou/uL (1.40-6.50); %Basophils 0.2 % (0.0-1.0); %Eosinophils 1.7 % (0.0-10.0); %Lymphocytes 11.4 % (21.0-51.0); %Monocytes 8.5 % (0.0-10.0); %Neutrophils 78.1 % (42.0-75.0); Hemoglobin 10.4 g/dL (12.0-16.0); Mean Corpuscular HGB CONC 31.8 g/dL (32.0-36.0); Mean Corpuscular Hemoglobin 27.3 pg (27.0-31.0); Mean Corpuscular Volume 85.9 fl (78.0-98.0); Mean Platelet Volume 7.9 fL (7.4-10.4); Platelet Count 257 10x3/uL (130-400); RBC Distribution Width 15.2 % (11.5-14.5); Red Blood Cell (RBC) Count 3.81 mill/uL (4.20-5.40); White Blood Cell (WBC) Count 8.7 10x3/uL (4.8-10.8)
[2022-06-07 20:37] LABS: Bilirubin Negative (Negative); Blood, Urine Negative (Negative); Clarity Clear (Clear); Glucose, Urine (Dipstick) Greater than 1000 mg/dL (Negative); Ketone, Urine Negative (Negative); Leukocyte Negative Leu/uL (Negative); Nitrite Negative (Negative); Protein, Urine (Dipstick) 10 mg/dL (Neg-Trace); Urobilinogen Normal mg/dL (Less than 2)
[2022-06-07 20:49] LABS: ALT (SGPT) 11 U/L (8-55); AST (SGOT) 14 U/L (5-34); Alkaline Phosphatase 75 U/L (40-110); Anion Gap 12 mmol/L (10-20); BUN (Urea Nitrogen) 19 mg/dL (9.8-20.1); Bilirubin, Total 0.3 mg/dL (0.2-1.2); Calc. Creatinine Clearance 0 mL/min (70-130); Calcium 8.6 mg/dL (7.8-10.44); Carbon Dioxide 26 mmol/L (23-31); Chloride 105 mmol/L (98-107); Estimated GFR 58; Glucose 257 mg/dL (83-110); Potassium 3.8 mmol/L (3.5-5.1); Sodium 139 mmol/L (136-145)
== END 2022-06-07 22:08 | disposition home or self-care (01) ==
LOC: ERS 20:00
DX: R55 Syncope and collapse (principal); E11.40 Type 2 diabetes mellitus with diabetic neuropathy, unspecified; I10 Essential (primary) hypertension; Z79.4 Long term (current) use of insulin
CPT/HCPCS: 36415; 51701; 71045; 74177; 80053; 81003; 84484; 85025; 93005; Q9967

== ENCOUNTER 2022-10-14 01:07 | Inpatient (IN) | payer MEDICARE, MEDICAID ==
[2022-10-14 02:07] LABS: #Eosinphils 0.2 thou/uL (0.0-0.7); #Lymphocytes 0.7 thou/uL (1.20-3.40); #Monocytes 0.9 thou/uL (0.11-0.59); #Neutrophils 11.2 thou/uL (1.40-6.50); %Eosinophils 1.3 % (0.0-10.0); %Lymphocytes 5.6 % (21.0-51.0); %Monocytes 6.8 % (0.0-10.0); %Neutrophils 86.3 % (42.0-75.0); Hemoglobin 9.9 g/dL (12.0-16.0); Mean Corpuscular HGB CONC 31.6 g/dL (32.0-36.0); Mean Corpuscular Hemoglobin 26.7 pg (27.0-31.0); Mean Corpuscular Volume 84.5 fl (78.0-98.0); Platelet Count 260 10x3/uL (130-400); RBC Distribution Width 14.9 % (11.5-14.5); Red Blood Cell (RBC) Count 3.71 mill/uL (4.20-5.40)
[2022-10-14] MEDS ORDERED: Ondansetron PF 4 MG/2 ML Vial ONE ×2 (02:10→02:12)
[2022-10-14 03:03] LABS: ALT (SGPT) 10 U/L (8-55); AST (SGOT) 16 U/L (5-34); Albumin 3.9 g/dL (3.4-4.8); Alkaline Phosphatase 53 U/L (40-110); Anion Gap 10 mmol/L (10-20); BUN (Urea Nitrogen) 25 mg/dL (9.8-20.1); Bilirubin, Total 0.2 mg/dL (0.2-1.2); Calc. Creatinine Clearance 0 mL/min (70-130); Calcium 8.8 mg/dL (7.8-10.44); Carbon Dioxide 28 mmol/L (23-31); Chloride 106 mmol/L (98-107); Estimated GFR 72; Globulin 2.9 g/dL (2.4-3.5); Glucose 93 mg/dL (83-110); Protein, Total 6.8 g/dL (5.8-8.1); Sodium 140 mmol/L (136-145)
[2022-10-14 04:08] LABS: Bacteria/HPF 2+ HPF (None Seen); Bilirubin Negative (Negative); Blood, Urine Negative (Negative); Clarity Clear (Clear); Glucose, Urine (Dipstick) Greater than 1000 mg/dL (Negative); Ketone, Urine Negative (Negative); Leukocyte 75 Leu/uL (Negative); Nitrite 2+ (Negative); Protein, Urine (Dipstick) 10 mg/dL (Neg-Trace); RBC/HPF 0-3 HPF (0-3); Specific Gravity, Urine 1.032 (1.002-1.036); Squamous Epithelial None Seen HPF (0-3); Urobilinogen Normal mg/dL (Less than 2); WBC/HPF Greater than 50 HPF (0-3)
[2022-10-14 05:36] LABS: Lipase 173 U/L (8-78); Magnesium 2.1 mg/dL (1.6-2.6)
[2022-10-14] MEDS ORDERED: cefTRIAXone (ROCEPHIN) 1 GM VIAL ONE (05:43)
[2022-10-14] MEDS ORDERED: HumaLOG 300 UNITS/3 ML VIAL SC PRN (07:45)
[2022-10-14] MEDS ORDERED: Dextrose 50% Abboject 50 ML SYRINGE SLOW IVP PRN (07:45)
[2022-10-14] MEDS ORDERED: Dextrose 5% in Water 1,000 ML IV PRN (07:45)
[2022-10-14] MEDS ORDERED: Metoclopramide HCl 10 MG/2 ML VIAL IVP PRN (07:59)
[2022-10-14] MEDS ORDERED: Lactated Ringer's 1,000 ML IV SCH (08:00)
[2022-10-14] MEDS ORDERED: Preparation H Suppository PR PRN (11:40)
[2022-10-14] MEDS ORDERED: Preparation H Ointment 28 GM TUBE TOP PRN (11:40)
[2022-10-14] MEDS: Polyethylene Glycol 3350 17 GM Packet PO SCH (15:28)
[2022-10-14] MEDS: Atorvastatin Calcium 20 MG TAB PO SCH (21:32)
[2022-10-14] MEDS: Docusate 100 MG CAP PO SCH (21:32)
[2022-10-14] MEDS: Acetaminophen 325 MG TAB PO PRN (22:11)
[2022-10-15 01:52] VITALS: BMI 21.1
[2022-10-15] MEDS: cefTRIAXone\\ROCEPHIN 1 GM in Sodium Chloride 0.9% 100 ML IVPB SCH (05:29)
[2022-10-15 05:33] LABS: #Eosinphils 0.3 thou/uL (0.0-0.7); #Lymphocytes 0.9 thou/uL (1.20-3.40); #Monocytes 0.8 thou/uL (0.11-0.59); #Neutrophils 7.2 thou/uL (1.40-6.50); %Basophils 0.3 % (0.0-1.0); %Eosinophils 3.5 % (0.0-10.0); %Lymphocytes 9.7 % (21.0-51.0); %Monocytes 8.2 % (0.0-10.0); %Neutrophils 78.4 % (42.0-75.0); Mean Corpuscular Volume 86.8 fl (78.0-98.0); Mean Platelet Volume 7.8 fL (7.4-10.4); Platelet Count 233 10x3/uL (130-400); RBC Distribution Width 15.1 % (11.5-14.5); Red Blood Cell (RBC) Count 3.45 mill/uL (4.20-5.40); White Blood Cell (WBC) Count 9.2 10x3/uL (4.8-10.8)
[2022-10-15 05:55] LABS: Anion Gap 12 mmol/L (10-20); BUN (Urea Nitrogen) 27 mg/dL (9.8-20.1); Calc. Creatinine Clearance 48 mL/min (70-130); Calcium 7.3 mg/dL (7.8-10.44); Carbon Dioxide 22 mmol/L (23-31); Chloride 106 mmol/L (98-107); Estimated GFR 68; Glucose 165 mg/dL (83-110); Potassium 4.1 mmol/L (3.5-5.1); Sodium 136 mmol/L (136-145)
[2022-10-15] MEDS: HumaLOG 300 UNITS/3 ML VIAL SC PRN ×2 (06:17→11:14)
[2022-10-15] MEDS: Docusate 100 MG CAP PO SCH ×2 (08:30→22:12)
[2022-10-15] MEDS: Citalopram 20 MG TAB PO SCH (08:31)
[2022-10-15] MEDS: Clopidogrel Bisulfate 75 MG TAB PO SCH (08:32)
[2022-10-15] MEDS ORDERED: Amlodipine 5 MG TAB PO SCH (09:00)
[2022-10-15] MEDS: Insulin Glargine 30 UNITS/0.3 ML VIAL SC SCH (09:15)
[2022-10-15] MEDS: Polyethylene Glycol 3350 17 GM Packet PO SCH (11:13)
[2022-10-15] MEDS: Acetaminophen 325 MG TAB PO PRN (15:25)
[2022-10-15] MEDS: metFORMIN 500 MG TAB PO SCH (18:41)
[2022-10-15] MEDS: Atorvastatin Calcium 20 MG TAB PO SCH (22:11)
[2022-10-16 05:11] LABS: #Eosinphils 0.3 thou/uL (0.0-0.7); #Lymphocytes 1.3 thou/uL (1.20-3.40); #Monocytes 0.6 thou/uL (0.11-0.59); #Neutrophils 4.6 thou/uL (1.40-6.50); %Basophils 0.3 % (0.0-1.0); %Eosinophils 3.9 % (0.0-10.0); %Lymphocytes 18.8 % (21.0-51.0); %Monocytes 8.9 % (0.0-10.0); %Neutrophils 68.1 % (42.0-75.0); Hemoglobin 9.2 g/dL (12.0-16.0); Mean Corpuscular Hemoglobin 27.3 pg (27.0-31.0); Mean Corpuscular Volume 85.1 fl (78.0-98.0); Mean Platelet Volume 7.8 fL (7.4-10.4); Platelet Count 213 10x3/uL (130-400); RBC Distribution Width 14.9 % (11.5-14.5); Red Blood Cell (RBC) Count 3.38 mill/uL (4.20-5.40); White Blood Cell (WBC) Count 6.8 10x3/uL (4.8-10.8)
[2022-10-16 05:37] LABS: Anion Gap 11 mmol/L (10-20); BUN (Urea Nitrogen) 27 mg/dL (9.8-20.1); Calc. Creatinine Clearance 51 mL/min (70-130); Calcium 7.6 mg/dL (7.8-10.44); Carbon Dioxide 24 mmol/L (23-31); Chloride 106 mmol/L (98-107); Estimated GFR 74; Glucose 149 mg/dL (83-110); Potassium 4.5 mmol/L (3.5-5.1); Sodium 136 mmol/L (136-145)
[2022-10-16] MEDS: cefTRIAXone\\ROCEPHIN 1 GM in Sodium Chloride 0.9% 100 ML IVPB SCH (06:40)
[2022-10-16] MEDS: Clopidogrel Bisulfate 75 MG TAB PO SCH (08:09)
[2022-10-16] MEDS: Docusate 100 MG CAP PO SCH (08:09)
[2022-10-16] MEDS: Citalopram 20 MG TAB PO SCH (08:09)
[2022-10-16] MEDS: Insulin Glargine 30 UNITS/0.3 ML VIAL SC SCH (08:09)
[2022-10-16] MEDS: metFORMIN 500 MG TAB PO SCH (08:09)
[2022-10-16] MEDS ORDERED: Cefdinir 300 MG CAP PO SCH (09:00)
[2022-10-16 11:40] VITALS: TEMP 98.5
[2022-10-16] MEDS: Polyethylene Glycol 3350 17 GM Packet PO SCH (11:53)
[2022-10-16 12:46] VITALS: BP 131/63
== END 2022-10-16 16:10 | disposition home health service (06) | DRG 689 ==
LOC: ERS 01:07 → ERHOLD 06:00 → NEURO 19:33 → OBSVTOIN 10-15 17:17
PROVIDERS: ADMIT Student in an Organized Health Care Education/Training Program; ATTEND Emergency Medicine
PROC: 0T9B70Z Drainage of Bladder with Drainage Device, Via Natural or Artificial Opening (ICD-10-PCS; principal; 2022-10-14)
DX: N39.0 Urinary tract infection, site not specified (principal); G93.41 Metabolic encephalopathy; F03.90 Unspecified dementia, unspecified severity, without behavioral disturbance, psychotic disturbance, mood disturbance, and anxiety; E11.40 Type 2 diabetes mellitus with diabetic neuropathy, unspecified; I10 Essential (primary) hypertension; I25.10 Atherosclerotic heart disease of native coronary artery without angina pectoris; F32.A Depression, unspecified; D63.1 Anemia in chronic kidney disease; R33.9 Retention of urine, unspecified; K59.00 Constipation, unspecified; K64.9 Unspecified hemorrhoids; E86.0 Dehydration; B96.20 Unspecified Escherichia coli [E. coli] as the cause of diseases classified elsewhere; Z95.5 Presence of coronary angioplasty implant and graft; Z95.1 Presence of aortocoronary bypass graft; Z90.710 Acquired absence of both cervix and uterus
CPT/HCPCS: 36415; 36416; 70450; 71045; 80048; 80053; 81003; 81015; 83690; 83735; 85025; 87077; 87086; 87186; 93005; 93306; 93880; 96376; G0378; J0696; J1815; J2405; J3490; J7120

== ENCOUNTER 2022-10-18 10:20 | Emergency (ER) | payer MEDICARE, OTHER | END 2022-10-18 11:44 | disposition home or self-care (01) | LOC: ERS 10:20 | DX: T83.9XXA Unspecified complication of genitourinary prosthetic device, implant and graft, initial encounter (principal); E11.9 Type 2 diabetes mellitus without complications; I10 Essential (primary) hypertension | CPT/HCPCS: 99283 ==

== ENCOUNTER 2022-10-30 18:09 | Emergency (ER) | payer MEDICARE ==
[2022-10-30 19:02] LABS: #Eosinphils 0.2 thou/uL (0.0-0.7); #Lymphocytes 1.1 thou/uL (1.20-3.40); #Monocytes 0.5 thou/uL (0.11-0.59); #Neutrophils 6.3 thou/uL (1.40-6.50); %Basophils 0.3 % (0.0-1.0); %Lymphocytes 13.4 % (21.0-51.0); %Monocytes 5.9 % (0.0-10.0); %Neutrophils 78.5 % (42.0-75.0); Hemoglobin 9.5 g/dL (12.0-16.0); Mean Corpuscular HGB CONC 30.2 g/dL (32.0-36.0); Mean Corpuscular Hemoglobin 25.8 pg (27.0-31.0); Mean Corpuscular Volume 85.5 fl (78.0-98.0); Platelet Count 279 10x3/uL (130-400); RBC Distribution Width 15.1 % (11.5-14.5); Red Blood Cell (RBC) Count 3.66 mill/uL (4.20-5.40)
[2022-10-30 19:28] LABS: ALT (SGPT) 46 U/L (8-55); AST (SGOT) 41 U/L (5-34); Albumin 3.9 g/dL (3.4-4.8); Alkaline Phosphatase 70 U/L (40-110); Anion Gap 13 mmol/L (10-20); BUN (Urea Nitrogen) 24 mg/dL (9.8-20.1); Bilirubin, Total Less than 0.2 mg/dL (0.2-1.2); Calc. Creatinine Clearance 0 mL/min (70-130); Calcium 8.8 mg/dL (7.8-10.44); Carbon Dioxide 23 mmol/L (23-31); Chloride 107 mmol/L (98-107); Estimated GFR 60; Glucose 314 mg/dL (83-110); Lipase 89 U/L (8-78); Potassium 4.4 mmol/L (3.5-5.1); Protein, Total 6.9 g/dL (5.8-8.1); Sodium 139 mmol/L (136-145)
[2022-10-30 19:44] LABS: Bilirubin Negative (Negative); Blood, Urine Negative (Negative); Clarity Clear (Clear); Glucose, Urine (Dipstick) Greater than 1000 mg/dL (Negative); Ketone, Urine Negative (Negative); Leukocyte Negative Leu/uL (Negative); Nitrite Negative (Negative); Protein, Urine (Dipstick) Negative (Neg-Trace); Specific Gravity, Urine 1.024 (1.002-1.036); Urobilinogen Normal mg/dL (Less than 2)
[2022-10-30] MEDS ORDERED: LORazepam 2 MG/ML SYR.(CARPUJECT) ONE (21:00)
== END 2022-10-30 22:10 | disposition home or self-care (01) ==
LOC: ERS 18:09
DX: K59.00 Constipation, unspecified (principal); I10 Essential (primary) hypertension; E11.9 Type 2 diabetes mellitus without complications; Z79.4 Long term (current) use of insulin
CPT/HCPCS: 74177; 80053; 81003; 82962; 83690; 85025; 94760; 96374; 99284; J2060; 36415; 36416

== ENCOUNTER 2023-01-14 18:47 | Emergency (ER) | payer MEDICARE, MEDICAID ==
[2023-01-14 22:20] LABS: #Eosinphils 0.2 thou/uL (0.0-0.7); #Monocytes 0.6 thou/uL (0.11-0.59); #Neutrophils 5.6 thou/uL (1.40-6.50); %Basophils 0.4 % (0.0-1.0); %Eosinophils 2.2 % (0.0-10.0); %Lymphocytes 21.7 % (21.0-51.0); %Monocytes 7.6 % (0.0-10.0); Hemoglobin 9.8 g/dL (12.0-16.0); Mean Corpuscular HGB CONC 30.1 g/dL (32.0-36.0); Mean Corpuscular Hemoglobin 26.6 pg (27.0-31.0); Mean Corpuscular Volume 88.6 fl (78.0-98.0); Mean Platelet Volume 9.8 fL (7.4-10.4); Platelet Count 280 10x3/uL (130-400); RBC Distribution Width 17.6 % (11.5-14.5); Red Blood Cell (RBC) Count 3.68 mill/uL (4.20-5.40); White Blood Cell (WBC) Count 8.3 10x3/uL (4.8-10.8)
[2023-01-14] MEDS ORDERED: diphenhydrAMINE 50 MG/ML VIAL ONE (22:24)
[2023-01-14 22:42] LABS: ALT (SGPT) 8 U/L (8-55); AST (SGOT) 16 U/L (5-34); Albumin 4.2 g/dL (3.4-4.8); Alkaline Phosphatase 58 U/L (40-110); Anion Gap 12 mmol/L (10-20); BUN (Urea Nitrogen) 20 mg/dL (9.8-20.1); Bilirubin, Total 0.2 mg/dL (0.2-1.2); Calc. Creatinine Clearance 0 mL/min (70-130); Calcium 9.1 mg/dL (7.8-10.44); Carbon Dioxide 27 mmol/L (23-31); Chloride 102 mmol/L (98-107); Estimated GFR 76; Globulin 3.1 g/dL (2.4-3.5); Glucose 133 mg/dL (83-110); Magnesium 2.4 mg/dL (1.6-2.6); Potassium 4.2 mmol/L (3.5-5.1); Protein, Total 7.3 g/dL (5.8-8.1); Sodium 137 mmol/L (136-145)
== END 2023-01-15 00:32 | disposition home or self-care (01) ==
LOC: ERS 18:47
DX: D53.9 Nutritional anemia, unspecified (principal); I10 Essential (primary) hypertension; E11.40 Type 2 diabetes mellitus with diabetic neuropathy, unspecified
CPT/HCPCS: 36415; 70450; 80053; 83735; 84443; 85025; 93005; 96374; J1200

== ENCOUNTER 2024-01-03 12:44 | Emergency (ER) | payer MEDICARE, MEDICAID ==
[2024-01-03 13:21] LABS: #Basophils Less than 0.03 10x3/uL (0.0-0.2); %Basophils 0.3 % (0.0-1.0); %Eosinophils 4.5 % (0.0-10.0); %Lymphocytes 22.1 % (21.0-51.0); %Monocytes 7.4 % (0.0-10.0); %Neutrophils 65.4 % (42.0-75.0); Hematocrit 40.6 % (36.0-47.0); Hemoglobin 12.9 g/dL (12.0-16.0); Mean Corpuscular HGB CONC 31.8 g/dL (32.0-36.0); Mean Corpuscular Hemoglobin 29.3 pg (27.0-31.0); Mean Corpuscular Volume 92.3 fL (78.0-98.0); Mean Platelet Volume 10.2 fL (7.4-10.4); Platelet Count 206 10x3/uL (130-400); RBC Distribution Width 15.5 % (11.5-14.5)
[2024-01-03 13:37] LABS: ALT (SGPT) 11 U/L (8-55); AST (SGOT) 16 U/L (5-34); Albumin 3.5 g/dL (3.4-4.8); Alkaline Phosphatase 62 U/L (40-110); Anion Gap 17 mmol/L (10-20); BUN (Urea Nitrogen) 19 mg/dL (9.8-20.1); Bilirubin, Total 0.4 mg/dL (0.2-1.2); CK (CPK) 39 U/L (29-168); Calc. Creatinine Clearance 0 mL/min (70-130); Calcium 8.7 mg/dL (7.8-10.44); Carbon Dioxide 22 mmol/L (23-31); Chloride 106 mmol/L (98-107); Estimated GFR 63; Globulin 3.1 g/dL (2.4-3.5); Glucose 221 mg/dL (83-110); Potassium 4.4 mmol/L (3.5-5.1); Protein, Total 6.6 g/dL (5.8-8.1); Sodium 141 mmol/L (136-145)
[2024-01-03 13:43] LABS: Troponin I Less than 0.010 ng/mL (< 0.028)
[2024-01-03] MEDS ORDERED: Acetaminophen 325 MG TAB ONE (15:05)
== END 2024-01-03 15:30 | disposition home or self-care (01) ==
LOC: ERS 12:44
DX: R55 Syncope and collapse (principal); R29.6 Repeated falls; R29.700 NIHSS score 0; I10 Essential (primary) hypertension; E11.40 Type 2 diabetes mellitus with diabetic neuropathy, unspecified; F03.90 Unspecified dementia, unspecified severity, without behavioral disturbance, psychotic disturbance, mood disturbance, and anxiety; Z79.4 Long term (current) use of insulin; Z95.5 Presence of coronary angioplasty implant and graft; Z79.84 Long term (current) use of oral hypoglycemic drugs; Z79.899 Other long term (current) drug therapy; Z95.1 Presence of aortocoronary bypass graft
CPT/HCPCS: 36415; 70450; 71045; 80053; 82550; 84484; 85025; 93005